=== PATIENT | male | born 1960 | race Caucasian/White ===

== ENCOUNTER → 2019-05-02 12:44 | Outpatient (CLI) | payer OTHER, SELFPAY ==
--- NOTE | 2019-05-03 08:06 | PFT ---
INTRODUCTION: The patient is a 58-year-old male that presents for pulmonary function studies secondary to a diagnosis of asthma. Respiratory therapy reports good patient effort. Bronchodilators were used during testing. INTERPRETATION: Forced expiration spirometry demonstrates the presence of a very severe large airways obstructive ventilatory defect with an FEV1 of 33% predicted. There was a significant response to aerosolized bronchodilators noted, based upon change in FEV1. Spirograms are of good quality and do not plateau indicating slow emptying of the lungs. Body plethysmography was performed and reveals an elevated TLC and RV, indicative of underlying hyperinflation and air trapping. Diffusing capacity by single breath CO is mildly reduced at 69% of predicted. IMPRESSION: Partially reversible very severe large airways obstructive ventilatory defect with associated hyperinflation, air trapping and mild reduction in diffusing capacity.
== END ==
PROVIDERS: Family Provider Family Medicine; PCP Family Medicine; Referring Provider Family Medicine; Visit Provider Family Medicine
DX: J45.909 Unspecified asthma, uncomplicated (principal); F17.200 Nicotine dependence, unspecified, uncomplicated
CPT/HCPCS: 94060; 94726; 94729

== ENCOUNTER → 2019-08-03 08:35 | Outpatient (CLI) | payer OTHER, SELFPAY ==
[2019-07-12 08:04] VITALS: BMI 30.3
[2019-08-03 12:27] LABS: Absolute Lymphocyte Count 2.02 X10^3/uL (0.83-4.51); Absolute Neutrophil Count 5.9 X10^3/uL (2.0-7.7); Basophil# 0.05 X10^3/uL; Basophil% 0.6 % (0-1); Eosinophil# 0.29 X10^3/uL; Eosinophils% 3.3 % (0-5); Hemoglobin 15.8 g/dL (13.0-16.5); Lymphocyte # 2.02 X10^3/ul (4.0); Lymphocyte % 22.7 % (19-41); Mean Corp Hgb Conc 31.6 g/dL (32-36); Mean Corpuscular Hgb 28.2 pg (27.0-32.0); Mean Corpuscular Volume 89.1 fL (80-94); Mean Platelet Vol. 11.9 fl (6.2-12.0); Monocyte# 0.63 X10^3/uL; Monocyte% 7.1 % (0-10); NRBC Flagged by Analyzer 0 % (0-5); Neutrophil # 5.89 X10^3/uL (2.7-7.7); Platelet Count 282 K/mm3 (150-450); RBC Distribution Width CV 13.2 % (11.6-14.6); RBC Distribution Width SD 43.4 fl (35.1-43.9); Red Blood Count 5.61 M/mm3 (4.6-6.2); White Blood Count 8.9 K/mm3 (4.4-11.0)
[2019-08-03 12:48] LABS: ALB/GLOB Ratio 0.9 RATIO (0.9-2.4); AST(SGOT) 15 U/L (15-37); Alanine Aminotransfer ALT/SGPT 42 U/L (16-61); Albumin, Serum 3.3 g/dL (3.2-5.0); Alkaline Phosphatase 114 U/L (45-117); Anion Gap 6 (5-15); BUN 14 mg/dL (7-18); BUN/Creat Ratio 13.2 RATIO (10-20); Calcium,Total 8.9 mg/dL (8.5-10.1); Chloride 106 mmol/L (98-107); Creatinine, Serum 1.06 mg/dL (0.70-1.30); EST Glomerular Filtration Rate 76 mL/min (>60); Est Glom Filt Rate - Afr Amer 92 mL/min (>60); Globulin 3.7 g/dL (2.2-4.2); Glucose 103 mg/dL (74-106); Potassium 4.6 mmol/L (3.5-5.1); Sodium Level 139 mmol/L (136-145); Thyroid Stim Hormone (TSH) 1.78 uIU/mL (0.358-3.74)
== END ==
PROVIDERS: PCP Family Medicine; Visit Provider Family Medicine
DX: I10 Essential (primary) hypertension (principal); E78.5 Hyperlipidemia, unspecified
CPT/HCPCS: 36415; 80053; 84443; 85025

== ENCOUNTER → 2019-08-23 12:17 | Outpatient (CLI) | payer OTHER, SELFPAY ==
[2019-07-12 08:04] VITALS: BMI 30.3
[2019-08-23 12:30] VITALS: PULSE 100; PULSE 77; PULSE 83; PULSE 91; PULSE 96; PULSE 99; O2SAT 92; O2SAT 93; O2SAT 95
--- NOTE | 2019-08-24 13:50 | PCM.PSN.6M ---
PSN 6 Minute Walk Test - 6 Minute Walk Test 6 Minute Walk Test: 6 Minute Walk Test PSN:6-Minute Walk Test Start: 08/23/19 12:46 Freq: Status: Active Protocol: [id number].6MINW Document 08/23/19 12:30 JLA (Rec: 08/23/19 12:48 JLA [id number]) 6 Minute Walk Test Date Performed 08/23/19 Time Performed 12:30 Height 6 ft 1 in Weight: 230 lb Weight in Pounds 230.[address]: Piter Mccallum Assistive device used: None Pre-test Oxygen Delivery Method Room Air Pulse Ox (%) 95 Pulse Rate (60-100 beats/min) 77 Dyspnea Rogers Scale (0-10) 0 Exertion Rogers Scale (6-20) 6 1st minute Oxygen Delivery Method Room Air Pulse Ox (%) 93 Pulse Rate (60-100 beats/min) 91 2nd minute Oxygen Delivery Method Room Air Pulse Ox (%) 92 Pulse Rate (60-100 beats/min) 100 3rd minute Oxygen Delivery Method Room Air Pulse Ox (%) 92 Pulse Rate (60-100 beats/min) 96 4th minute Oxygen Delivery Method Room Air Pulse Ox (%) 92 Pulse Rate (60-100 beats/min) 99 5th minute Oxygen Delivery Method Room Air Pulse Ox (%) 93 Pulse Rate (60-100 beats/min) 99 6th minute Oxygen Delivery Method Room Air Pulse Ox (%) 93 Pulse Rate (60-100 beats/min) 83 Dyspnea Rogers Scale (0-10) 0 Exertion Rogers Scale (6-20) 11 Post-test Oxygen Delivery Method Room Air Pulse Ox (%) 95 Pulse Rate (60-100 beats/min) 77 Full Laps Walked 24 Partial Lap, Number of Tiles Walked 20 Total Distance Walked (ft) 1436 - Interpretation Interpretation: The patient ambulated 1436 feet over the course of 6 minutes beginning on room air without assistive devices or breaks. Pretesting oxygen saturation was noted to be 95% on room air. With ambulation, the linda oxygen saturation was 92%. There was no significant exertional oxygen desaturation. - Recommendations Recommendations: There is no indication for the use of supplemental oxygen at this time.
== END ==
PROVIDERS: Family Provider Family Medicine; PCP Family Medicine; Referring Provider Internal Medicine Critical Care Medicine; Visit Provider Internal Medicine Critical Care Medicine
DX: J44.9 Chronic obstructive pulmonary disease, unspecified (principal)
CPT/HCPCS: 94618

== ENCOUNTER → 2020-04-26 12:45 | Outpatient (CLI) | payer OTHER, SELFPAY ==
[2019-11-01 07:38] VITALS: BMI 30.3
--- NOTE | 2020-04-26 15:38 | PFTCOMP ---
COMPLETE PULMONARY FUNCTION TEST INTERPRETATION Brief HPI: Patient is a 59 year old male, currently under the care of myself, who presents to [facility] for complete pulmonary function tests secondary to diagnosis of COPD. Respiratory therapist reports good effort and reproducible results. Interpretation: Forced expiration spirometry shows a very severe large airways obstructive ventilatory defect with an FEV1 of 35% predicted. There is no significant bronchodilator response by strict ATS criteria. Spirograms are of good quality and plateau slowly, indicating slowly emptying areas of the lungs. The respiratory flow volume loop shows decreased expiratory flow rates at all lung volumes consistent with airway obstruction. Lung volumes by body plethysmography show a decreased total lung capacity at 5.16 L, 70% predicted. All other lung volumes are reduced symmetrically. Diffusion capacity by carbon monoxide is normal at 78% predicted. The airway resistance is elevated. Compared to previous pulmonary function tests from 05/02/2019, there is been a significant reduction in lung volume by 38%. Impression: Irreversible very severe mixed ventilatory defect with preserved diffusion capacity. There has been improvement in air trapping compared to previous study.
== END ==
PROVIDERS: PCP Family Medicine; Referring Provider Internal Medicine Critical Care Medicine; Visit Provider Internal Medicine Critical Care Medicine
DX: J44.9 Chronic obstructive pulmonary disease, unspecified (principal)
CPT/HCPCS: 94060; 94726; 94729

== ENCOUNTER → 2020-08-06 09:25 | Outpatient (CLI) | payer OTHER, SELFPAY ==
[2020-05-01 08:13] VITALS: BMI 30.4
[2020-08-06 12:47] LABS: Absolute Lymphocyte Count 2.02 X10^3/uL (0.83-4.51); Absolute Neutrophil Count 5.4 X10^3/uL (2.0-7.7); Basophil# 0.04 X10^3/uL; Basophil% 0.5 % (0-1); Eosinophils% 2.4 % (0-5); Hematocrit 49.1 % (40-54); Hemoglobin 16.2 g/dL (13.0-16.5); Lymphocyte # 2.02 X10^3/ul (4.0); Lymphocyte % 24.6 % (19-41); Mean Corpuscular Hgb 28.9 pg (27.0-32.0); Mean Corpuscular Volume 87.7 fL (80-94); Mean Platelet Vol. 12.2 fl (6.2-12.0); Monocyte# 0.54 X10^3/uL; Monocyte% 6.6 % (0-10); NRBC Flagged by Analyzer 0 % (0-5); Neutrophil # 5.37 X10^3/uL (2.7-7.7); Neutrophil % 65.4 % (47-70); Platelet Count 217 K/mm3 (150-450); RBC Distribution Width CV 12.9 % (11.6-14.6); RBC Distribution Width SD 41.4 fl (35.1-43.9); White Blood Count 8.2 K/mm3 (4.4-11.0)
[2020-08-06 13:30] LABS: ALB/GLOB Ratio 0.9 RATIO (0.9-2.4); AST(SGOT) 15 U/L (15-37); Alanine Aminotransfer ALT/SGPT 33 U/L (16-61); Albumin, Serum 3.3 g/dL (3.2-5.0); Alkaline Phosphatase 119 U/L (45-117); Anion Gap 11 (5-15); BUN 14 mg/dL (7-18); BUN/Creat Ratio 15.6 RATIO (10-20); Calcium,Total 8.6 mg/dL (8.5-10.1); Chloride 108 mmol/L (98-107); Cholesterol 150 mg/dL (200); EST Glomerular Filtration Rate 92 mL/min (>60); Est Glom Filt Rate - Afr Amer 112 mL/min (>60); Globulin 3.7 g/dL (2.2-4.2); Glucose 83 mg/dL (74-106); High Density Lipoprotein 36 mg/dL; PSA,Total - Annual Screen 0.77 ng/mL (0.00-4.00); Potassium 3.9 mmol/L (3.5-5.1); Sodium Level 142 mmol/L (136-145); Thyroid Stim Hormone (TSH) 1.89 uIU/mL (0.358-3.74); Triglycerides 101 mg/dL; Very Low Density Lipoprotein 20 mg/dL (5-40)
== END ==
PROVIDERS: PCP Family Medicine; Visit Provider Family Medicine
DX: R73.01 Impaired fasting glucose (principal); E78.5 Hyperlipidemia, unspecified; I10 Essential (primary) hypertension; Z12.5 Encounter for screening for malignant neoplasm of prostate
CPT/HCPCS: 36415; 80053; 80061; 84153; 84443; 85025; G0103

== ENCOUNTER 2022-04-19 11:04 | Inpatient (IN) | payer OTHER, SELFPAY ==
[2022-04-19] VITALS (33 sets, daily range): BP systolic 82–212; BP diastolic 55–110; PULSE 69–147; RESP 12–44; TEMP 36.6–38.4; O2SAT 90–99; BMI 29.9; BMI 28.6
[2022-04-19] MEDS: Ipratropium/Albuterol Sulfate 3 ML AMPUL.NEB INHALATION ×4 (11:23→23:26)
--- NOTE | 2022-04-19 11:23 | RAD_ITS ---
STUDY: X-RAY CHEST REASON FOR EXAM: Male, 61 years old. Respiratory failure TECHNIQUE: Single AP portable view of the chest. COMPARISON: Prior comparison studies are not available for review at this time. FINDINGS: Endotracheal tube with its tip approximately 4.5 cm proximal to the monica. Nasogastric tube extends below the level of the diaphragm. Mild hypoventilatory and atelectatic changes in the left lung base. No focal infiltrate otherwise is seen. The costophrenic angles are not entirely included on this exam. Normal size heart. Normal mediastinum and homer. Normal visualized pulmonary arteries. Normal visualized aortic arch and descending thoracic aorta. No demonstrated acute osseous changes. There is no demonstrated abnormality of the visualized soft tissue structures of the upper abdomen. RAD/Chest 1 View (Portable) IMPRESSION: Mild atelectatic changes in the left lung base. Electronically Signed: Tom Lei MD at 12:27 EDT ,
--- NOTE | 2022-04-19 11:23 | EKG12_ITS ---
Test Reason : SHORT OF BREATH Blood Pressure : / mmHG Vent. Rate : 144 BPM Atrial Rate : 144 BPM P-R Int : 120 ms QRS Dur : 088 ms QT Int : 362 ms P-R-T Axes : 058 047 081 degrees QTc Int : 560 ms Sinus tachycardia Inferior-posterior infarct , age undetermined Abnormal ECG Confirmed by FELICE CALDERON, CHRIS ([id number]), editorial intern NIDIA MARTÍNEZ ([id number]) on 04/22/2022 1:44:45 PM Referred By: CARLA Confirmed By:CHRIS VIVEROS MD
[2022-04-19 11:36] LABS: Absolute Lymphocyte Count 0.81 X10^3/uL (0.83-4.51); Absolute Neutrophil Count 14.9 X10^3/uL (2.0-7.7); Basophil# 0.05 X10^3/uL; Basophil% 0.3 % (0-1); Eosinophil# 0.23 X10^3/uL; Eosinophils% 1.4 % (0-5); Hematocrit 52.9 % (40-54); Hemoglobin 17.1 g/dL (13.0-16.5); Lymphocyte # 0.81 X10^3/ul (0.83-4.51); Lymphocyte % 4.8 % (19-41); Mean Corp Hgb Conc 32.3 g/dL (32-36); Mean Corpuscular Hgb 29.9 pg (27.0-32.0); Mean Corpuscular Volume 92.5 fL (80-94); Mean Platelet Vol. 11.2 fl (6.2-12.0); Monocyte# 0.87 X10^3/uL; Monocyte% 5.1 % (0-10); NRBC Flagged by Analyzer 0 % (0-5); Neutrophil # 14.88 X10^3/uL (2.7-7.7); Neutrophil % 87.8 % (47-70); Platelet Count 248 K/mm3 (150-450); RBC Distribution Width CV 13.4 % (11.6-14.6); RBC Distribution Width SD 45.6 fl (35.1-43.9); Red Blood Count 5.72 M/mm3 (4.6-6.2); White Blood Count 16.9 K/mm3 (4.4-11.0)
[2022-04-19] MEDS: Etomidate 20 MG/10 ML Vial IV (11:39)
[2022-04-19] MEDS: Rocuronium Bromide 50 MG/5 ML Vial 100 MG IV (11:39)
--- NOTE | 2022-04-19 11:42 | RAD_ITS ---
STUDY: X-RAY - ABDOMEN/PELVIS REASON FOR EXAM: Male, 61 years old. NG Insertion TECHNIQUE: Single AP view of the abdomen / pelvis. COMPARISON: None. FINDINGS: Nasogastric tube is submitted the region of the gastric fundus. The sidehole is just distal to the gastroesophageal junction. The abdomen otherwise is not entirely included on this exam RAD/Abdomen Single View (Portable) IMPRESSION: Nasogastric tube with the tip in the region of the gastric fundus. Electronically Signed: Tom Lei MD at 12:35 EDT ,
[2022-04-19 11:45] LABS: International Normalized Ratio 1.3; Prothrombin Time (Protime)PT. 15.7 SECONDS (11.7-14.9)
[2022-04-19] MEDS: Propofol 10MG/Ml 1,000 MG/100 ML Bottle 6.2 MG CONT INF ×2 (11:45)
[2022-04-19] MEDS: 0.9% Normal Saline 1,000 ML 150 ML IV (11:45)
[2022-04-19 11:46] LABS: Partial Thromboplast Time 28.7 Seconds (24.1-36.2)
--- NOTE | 2022-04-19 11:59 | ED.VIS.DYS ---
HPI History of Present Illness Chief Complaint: Shortness of Breath Detail of Chief Complaint: Shortness of breath and not feeling well Informant: patient and spouse/S.O. Onset/Context/Timing Onset: Days (Left work early on according to .) Context: gradual Timing: Continuous Quality: Positive for Dyspnea on exertion and Wheezing Current Severity: Severe Maximum Severity: Severe Worsened by: Exertion and Coughing Relieved by: Nothing Associated Symptoms cough Narrative Narrative: Patient is a 61-year-old male with history of asthma, hypertension, obesity and hyperlipidemia who presents with shortness of breath. is the primary informant. He left work early on because he did not feel well. states he got worse. Today he did not look well. When he arrived his pulse ox was in the 70s. He is mottled diaphoretic and ashen in appearance. He has evidence of central cyanosis. He is able to say 1 word at best. He has history of COPD stage III by Gold classification. He was seen by pulmonology. He has not seen pulmonology in some time. He does not have an inhaler presently and has not been on steroids recently. PE Risk Factors: Negative for Cancer, OCP + Smoking + > 35, Prior DVT or PE, Recent immobilization, Recent surgery or Recent travel Prior similar symptoms: No Recent Illness/Hospitalization: No PFSH [facility] Medical History (Updated 04/19/22 @ 12:[address] Daniel Raymundo MD) Asthma H/O gynecomastia HTN (hypertension) Hyperlipidemia Obesity Seasonal allergies Home Medications albuterol sulfate 90 mcg/actuation aerosol inhaler (ProAir HFA) 1 puff inhalation Q6H PRN Shortness Of Breath 07/11/19 [History Last Taken Unknown] atorvastatin 10 mg tablet 10 mg PO DAILY 07/11/19 [History Last Taken Unknown] lisinopril 20 mg tablet 20 mg PO DAILY 07/11/19 [History Last Taken Unknown] fluticasone fur. 100 mcg-umeclid 62.5 mcg-vilant 25 mcg inhalat.powder (Trelegy Ellipta) 1 inh inhalation DAILY #60 ea 05/01/20 [Rx Last Taken Unknown] montelukast 10 mg tablet 10 mg PO QPM #90 tabs 05/01/20 [Rx Last Taken Unknown] Allergy/AdvReac Type Severity Reaction Status Date / Time No Known Allergies Allergy Verified 04/19/22 11:17 Surgical History History of appendectomy Social History (Updated 04/19/22 @ 12:[address] Daniel Raymundo MD) household members: spouse substance use type: does not use ROS ROS ED Review of Systems ROS Unobtainable: due to mental status and other Details: Respiratory distress. Respiratory/Chest Respiratory/Chest: Reports cough, dyspnea and dyspnea on exertion EXAM Physical Exam Const Vital Signs: 04/19/22 11:07 04/19/22 11:12 04/19/22 11:34 Temperature 97.8 F 97.8 F Temperature Source Temporal Temporal Pulse Rate 144 H 144 H 147 H Respiratory Rate 38 H 38 H 44 H Respiratory Effort Respiratory Depth Respiratory Pattern Blood Pressure 195/86 H 195/86 H 167/104 H Blood Pressure Mean 122 122 125 Pulse Ox 93 96 93 Oxygen Delivery Method Non-Rebreather Bi-pap Bi-pap Oxygen Flow Rate (L/min) 15 Fraction of Inspired Oxygen (FIO2) 04/19/22 11:30 04/19/22 11:39 Temperature Temperature Source Pulse Rate 118 H Respiratory Rate 14 Respiratory Effort Short of Breath Labored Accessory Muscle Use Nasal Flaring Retracting Respiratory Depth Shallow Respiratory Pattern Tachypnea Normal Blood Pressure Blood Pressure Mean Pulse Ox 98 Oxygen Delivery Method Oxygen Flow Rate (L/min) Fraction of Inspired Oxygen (FIO2) 65 Positive well nourished, well developed and obese Constitutional Narrative: Patient is mottled, cyanotic, ashen in appearance and diaphoretic. General Appearance ED: well developed; Negative for NAD Nutritional Appearance: obese HEENT Reports moist mucous membranes HEENT Narrative: Ears normal. Nares patent. Uvula midline. No erythema or exudate the posterior pharynx. atraumatic Eyes PERRL and EOMs intact bilaterally General Eye ED: Negative for pale conjunctiva or scleral icterus Neck no lymphadenopathy, supple and no meningeal signs Neck Narrative: Trachea is midline. There is no inspiratory expiratory stridor. Resp No normal respiratory effort and No clear to auscultation bilaterally Auscultation: wheezes expiratory wheezes and throughout and diminished lung sounds bilateral throughout Cardio regular rhythm, S1 normal heart sound and S2 normal heart sound Rate: tachycardic GI non-tender, non-distended and no masses Auscultation: hypoactive bowel sounds Palpation: soft Narrative: Normal external genitalia Back/Spine normal to inspection Extremity General Extremety ED: Yes edema; Negative for tenderness General Extremity: edema Neuro Neuro Narrative: Unable to determine since patient is unable to speak even one-word answers. Elizabeth Coma Scale: document GCS findings Spontaneous Obeys Commands Oriented 15 Motor Exam: strength 5/5 throughout Psych Psych Narrative: Suspect patient's agitation is due to hypoxia. Attitude: agitated Skin Skin Narrative: Diaphoretic, mottled with ashen appearance and central cyanosis. Sepsis Attestation Sepsis Alert: Yes Sepsis Attestation: Agree w/Sepsis Possible Source of Sepsis: Pulmonary MDM MDM MDM Narrative Medical decision making narrative: Patient arrived hypoxic. He was placed on nonrebreather. Nurse asked that I see him immediately. He was placed on BiPAP. Unable to give more than 1 word answers. is the primary informant. Patient deteriorated requiring orotracheal ovation. Patient received 20 mg of etomidate followed by 100 mg rocuronium. He is placed on a fentanyl and propofol drip. When patient was intubated thick green secretions noted from the trachea. Suspect patient has pneumonia. He was treated with Rocephin and Zithromax and for community-acquired pneumonia. Lab Data Attestation: I reviewed the patient's lab results. Lab results narrative: ABG reveals a respiratory acidosis and significant AA gradient. Labs: Laboratory Results - last 24 hr 04/19/22 04/19/22 04/19/22 11:25 11:25 11:25 WBC 16.9 H RBC 5.72 Hgb 17.1 H Hct 52.9 MCV 92.5 MCH 29.9 MCHC 32.3 RDW Std Deviation 45.6 H RDW Coeff of Teressa 13.4 Plt Count 248 MPV 11.2 Immature Gran % (Auto) 0.600 Neut % (Auto) 87.8 H Lymph % (Auto) 4.8 L Richardson % (Auto) 5.1 Eos % (Auto) 1.4 Baso % (Auto) 0.3 Absolute Neuts (auto) 14.9 H Absolute Lymphs (auto) 0.81 L Nucleated RBC % 0 PT 15.7 H INR 1.3 APTT 28.7 Sodium 137 Potassium 4.4 Chloride 99 Carbon Dioxide 26.0 Anion Gap 12 BUN 24 H Creatinine 1.70 H Estim Creat Clear Calc 52.22 Est GFR (MDRD) Af Amer 53 L Est GFR (MDRD) Non-Af 44 L BUN/Creatinine Ratio 14.1 Glucose 210 H Lactic Acid Calcium 9.4 Total Bilirubin 0.90 AST 132 H ALT 104 H Alkaline Phosphatase 135 H Troponin I High Sens 6254 H* Total Protein 8.4 H Albumin 3.3 Globulin 5.1 H Albumin/Globulin Ratio 0.6 L Urine Color Urine Clarity Urine pH Ur Specific Oden Urine Protein Urine Glucose (UA) Urine Ketones Urine Occult Blood Urine Nitrite Urine Bilirubin Urine Urobilinogen Ur Leukocyte Esterase 04/19/22 04/19/22 11:25 12:00 WBC RBC Hgb Hct MCV MCH MCHC RDW Std Deviation RDW Coeff of Teressa Plt Count MPV Immature Gran % (Auto) Neut % (Auto) Lymph % (Auto) Richardson % (Auto) Eos % (Auto) Baso % (Auto) Absolute Neuts (auto) Absolute Lymphs (auto) Nucleated RBC % PT INR APTT Sodium Potassium Chloride Carbon Dioxide Anion Gap BUN Creatinine Estim Creat Clear Calc Est GFR (MDRD) Af Amer Est GFR (MDRD) Non-Af BUN/Creatinine Ratio Glucose Lactic Acid 3.6 H* Calcium Total Bilirubin AST ALT Alkaline Phosphatase Troponin I High Sens Total Protein Albumin Globulin Albumin/Globulin Ratio Urine Color Yellow Urine Clarity Sl. Cloudy Urine pH 5.0 Ur Specific Oden 1.025 Urine Protein 500 H Urine Glucose (UA) Normal Urine Ketones 5 H Urine Occult Blood 150 H Urine Nitrite Negative Urine Bilirubin Negative Urine Urobilinogen 4 H Ur Leukocyte Esterase Negative ABG Data ABG results: ABG 04/19/22 12:27 Specimen Type ART Sample Site R Brach pH 7.20 L Bicarbonate Actual 26.2 H Total CO2 28 Base Excess -2 O2 Saturation 97 O2 % 65 ABG pCO2 66.5 H ABG pO2 116 H Respiration Rate 14 Vent Mode AC Tidal Volume 450 POC PEEP 5 Crit Call To/Read Back Yes Blood Gas Notified Whom raymundo Radiography Chest X-Ray - ED: 1 View and Read by ED Physician (1 view of the chest and 1 view of the abdomen were obtained. Endotracheal tube is in proper position. There is increased interstitial markings on the left. Cardiac silhouette and size unremarkable. Perihilar regions unremarkable. Orogastric tube is in proper position. This was independently re) Diagnostic Testing: Clinical Impression(s) from Imaging Studies Chest X-Ray 04/19/22 11:23 IMPRESSION: Mild atelectatic changes in the left lung base. Electronically Signed: Tom Lei MD at 12:27 EDT , KUB X-Ray 04/19/22 11:42 IMPRESSION: Nasogastric tube with the tip in the region of the gastric fundus. Electronically Signed: Tom Lei MD at 12:35 EDT , EKG Initial EKG: Attestation: I personally reviewed and interpreted this EKG as follows: Interpretation: Sinus Tachycardia (Rate is 144. There is motion artifact. There may be lateral subendocardial ischemia. SD interval is 120 ms. QS duration 88 ms. QT duration 162 ms. Barron is normal. The ischemia may be due to hypoxia.) Comments: The subendocardial ischemia may be due to hypoxia. Follow-up EKG: Attestation: I personally reviewed and interpreted this EKG as follows: Interpretation: Sinus Tachycardia (Rate is 141. There is a short SD interval 96 ms. QS duration 90 ms. QT duration [address] abnormality in the anterior lateral leads. There is no ST elevation WI.) Treatment and Re-Evaluation Narrative: Patient was treated for sepsis. I was informed that his troponin is greater than 6000. Suspect patient has non-STEMI ST elevation WI. Will obtain repeat EKG since he is now chemically paralyzed. The owner spa director and hospitalist were paged. Will discuss case with hospitalist regarding me specifically speaking with the qc tech. Procedures Other Procedures Procedure(s): 1. Patient was orotracheal intubated by RSI technique. Patient received 100 mg rocuronium that was preceded by 20 mg etomidate. He did not become hypoxic. Using glide scope 7.5 Azeri endotracheal was placed without difficulty on first pass. There is appropriate color change. Breath sounds are noted bilaterally. OG was placed per nursing staff. Christie was placed per nursing staff. Critical Care Time Critical Care Time: Yes Critical care time (excluding procedures): 30-74 minutes (37), Including time spent: (History, physical, documentation, interpretation laboratory results), Discussing w/Patient &/or Family/Switch Tender ( was the primary informant.), Discussing w/Consultants (Cardiology Dr. Bajwa. Agrees with anticoagulation with heparin. Will discuss case with hospitalist), Arranging Admission or Transfer and Performing Direct Patient Care at Bedside Discharge Plan Dx/Rx/DC Orders Clinical Impression: Hyperlipidemia, HTN (hypertension), COPD with asthma, Sepsis with acute organ dysfunction without septic shock, Community acquired pneumonia, Non-ST elevated myocardial infarction, JOHNNY (acute kidney injury), Acute respiratory failure with hypoxia and hypercapnia Disposition Disposition: Acute Care [facility]
[2022-04-19 12:08] LABS: ALB/GLOB Ratio 0.6 RATIO (0.9-2.4); AST(SGOT) 132 U/L (15-37); Alanine Aminotransfer ALT/SGPT 104 U/L (16-61); Albumin, Serum 3.3 g/dL (3.2-5.0); Alkaline Phosphatase 135 U/L (45-117); Anion Gap 12 (5-15); BUN 24 mg/dL (7-18); BUN/Creat Ratio 14.1 RATIO (10-20); Calcium,Total 9.4 mg/dL (8.5-10.1); Chloride 99 mmol/L (98-107); EST Glomerular Filtration Rate 44 mL/min (>60); Est Glom Filt Rate - Afr Amer 53 mL/min (>60); Estimated Creatinine Clearance 52.22 ml/min; Globulin 5.1 g/dL (2.2-4.2); Glucose 210 mg/dL (74-106); Potassium 4.4 mmol/L (3.5-5.1); Protein, Total 8.4 g/dL (6.4-8.2); Sodium Level 137 mmol/L (136-145); Troponin-I HS 6254 pg/mL (3.0-78.0)
[2022-04-19 12:09] LABS: Lactic Acid 3.6 mmol/L (0.4-1.9)
[2022-04-19 12:21] LABS: Bacteria 0 SEEN /hpf (None Seen); Mucous, Urine 0 SEEN /hpf (<or=2+); Red Blood Cells-Urine 0 SEEN /hpf (0-5); Squamous Epithelial Cells - UA 0 SEEN /hpf (0-5); White Blood Cells 0 SEEN /hpf (0-5)
[2022-04-19] MEDS: MethylPREDNISolone 125 MG/2 ML Vial IV (12:21)
[2022-04-19 12:32] LABS: Color, Urine Yellow (Yellow); Glucose, Dipstick Normal (Normal); Ketone-Dipstick 5 mg/dl (Negative); Leukocyte Esterase-Dipstick Negative /ul (Negative); Nitrite-Dipstick Negative (Negative); Occult Blood-Urine 150 /ul (Negative); Protein-Dipstick 500 mg/dl (Negative); Specific Gravity, Urine 1.025 (1.002-1.030); Urine Bilirubin Dipstick Negative (Negative); Urine Clarity Sl. Cloudy (Clear); Urine Urobilinogen 4 mg/dl (Normal)
--- NOTE | 2022-04-19 12:33 | HP.PCM.HOS_ITS ---
HPI - General General Date of Admission: 04/19/22 Date of Service: 04/19/22 Chief Complaint: Worsening shortness of breath and hypoxia. History of COPD HPI Narrative To SANDOVAL WANG, is a 61 M With history of COPD came to ED with shortness of breath/dyspnea started on Thursday, progressively got worse last few days. When I saw the patient is already intubated and sedated therefore history taken from the . He went to work on and left work early as he was not feeling good. He he did not go to work on Thursday feeling short of breath. Today his called EMS as he was very short of breath, and respiratory distre ss. As per EMS note, patient was tachycardic, heart rate in 150s, cyanotic, pulse ox 74% on RA, end-tidal 52, RR 34 and BP 155/121. Patient was put on nonrebreather. In ED,Pulse ox in 70s, skin color mottled, central cyanotic, diaphoretic and was able to say 1 word therefore emergently intubated by ED physician. During intubation, thick yellow purulent material was found. also noticed thick purulent material in a cup at home As per he smokes a pack per day, more than 45 pack years of smoking. Patient has a stage III COPD by PFT criteria, follows Dr. Mccallum, last seen in April 2020 and had canceled pulmonary visit in October 2020 Patient has Christie catheter in place, total amount 30-40 mill dark-colored urine. Patient also has high troponin and EKG shows sinus tachycardia 141 bpm, short AR, QTC 566 ms, deep Q waves in inferior leads and the R wave in lead V1 and V2 suggestive of possible posterior inferior infarct, age undetermined. No previous EKG to review. Patient empirically on IV heparin drip after discussion with geophysical prospecting permit agent by ER physician. As per he did not complain of chest pain pressure. No prior history of heart disease. History of hypertension Patient is being admitted in ICU for further management [facility] Medical History Asthma H/O gynecomastia HTN (hypertension) Hyperlipidemia Obesity Seasonal allergies Home Medications albuterol sulfate 90 mcg/actuation aerosol inhaler (ProAir HFA) 1 puff inhalation Q6H PRN Shortness Of Breath 12/30/19 [History Last Taken Unknown] atorvastatin 10 mg tablet 10 mg PO DAILY 07/11/19 [History Last Taken Unknown] lisinopril 20 mg tablet 20 mg PO DAILY 07/11/19 [History Last Taken Unknown] fluticasone fur. 100 mcg-umeclid 62.5 mcg-vilant 25 mcg inhalat.powder (Trelegy Ellipta) 1 inh inhalation DAILY #60 ea 05/01/20 [Rx Last Taken Unknown] montelukast 10 mg tablet 10 mg PO QPM #90 tabs 05/01/20 [Rx Last Taken Unknown] Allergy/AdvReac Type Severity Reaction Status Date / Time No Known Allergies Allergy Verified 04/19/22 11:17 Surgical History History of appendectomy Social History household members: spouse Smoking Status: Current every day smoker tobacco type: cigarettes substance use type: does not use ROS ROS Narrative 14 ROS unobtainable as patient is intubated and sedated Review of Systems ROS Unobtainable: due to endotracheal tube Vital Signs Vital Signs Vital Signs: 04/19/22 11:07 04/19/22 11:12 04/19/22 11:34 Temperature 97.8 F 97.8 F Temperature Source Temporal Temporal Pulse Rate 144 H 144 H 147 H Respiratory Rate 38 H 38 H 44 H Respiratory Effort Respiratory Depth Respiratory Pattern Blood Pressure 195/86 H 195/86 H 167/104 H Blood Pressure Mean 122 122 125 Pulse Ox 93 96 93 Oxygen Delivery Method Non-Rebreather Bi-pap Bi-pap Oxygen Flow Rate (L/min) 15 Fraction of Inspired Oxygen (FIO2) 04/19/22 11:30 04/19/22 11:39 Temperature Temperature Source Pulse Rate 118 H Respiratory Rate 14 Respiratory Effort Short of Breath Labored Accessory Muscle Use Nasal Flaring Retracting Respiratory Depth Shallow Respiratory Pattern Tachypnea Normal Blood Pressure Blood Pressure Mean Pulse Ox 98 Oxygen Delivery Method Oxygen Flow Rate (L/min) Fraction of Inspired Oxygen (FIO2) 65 Weight Weight: 227 lb 1.218 oz Body Mass Index (BMI) 29.9 Physical Exam Narrative General: Sedated on propofol and fentanyl. HEENT: Atraumatic, PERRLA, EOMI, Normocephalic Oral: ET and OG tube. Neck: Supple, No JVD, Negative Carotid Bruits Lungs: On ventilator, assist control mode. Air entry bilateral equal. Cardiovascular: Sinus tachycardia, Normal S1, Normal S2, No murmurs Abdomen: Bowel Sounds sluggish, Soft, Non Tender, Non-Distended : Christie catheter, darker urine. No renal angle tenderness. No suprapubic tenderness. Extremities: No edema, Capillary Refill Less than 3 Seconds Skin: Mottled bluish discoloration of feet and toes Musculoskeletal: No Tenderness to Palpation of Joints or Extremities Neurological: Sedated, complete neuro exam unobtainable. No facial droop or obvious cranial nerve palsy Psych/Mental Status: Sedated Results Lab / Micro Data Result Diagrams: 04/19/22 11:25 04/19/22 11:25 Labs: Laboratory Results - last 24 hr 04/19/22 11:25: WBC 16.9 H, RBC 5.72, Hgb 17.1 H, Hct 52.9, MCV 92.5, MCH 29.9, MCHC 32.3, RDW Std Deviation 45.6 H, RDW Coeff of Teressa 13.4, Plt Count 248, MPV 11.2, Immature Gran % (Auto) 0.600, Neut % (Auto) 87.8 H, Lymph % (Auto) 4.8 L, [place] % (Auto) 5.1, Eos % (Auto) 1.4, Baso % (Auto) 0.3, Absolute Neuts (auto) 14.9 H, Absolute Lymphs (auto) 0.81 L, Nucleated RBC % 0 04/19/22 11:25: PT 15.7 H, INR 1.3, APTT 28.7 04/19/22 11:25: Sodium 137, Potassium 4.4, Chloride 99, Carbon Dioxide 26.0, Anion Gap 12, BUN 24 H, Creatinine 1.70 H, Estim Creat Clear Calc 52.22, Est GFR (MDRD) Af Amer 53 L, Est GFR (MDRD) Non-Af 44 L, BUN/Creatinine Ratio 14.1, Glucose 210 H, Calcium 9.4, Total Bilirubin 0.90, AST 132 H, ALT 104 H, Alkaline Phosphatase 135 H, Troponin I High Sens 6254 H*, Total Protein 8.4 H, Albumin 3.3, Globulin 5.1 H, Albumin/Globulin Ratio 0.6 L 04/19/22 11:25: Lactic Acid 3.6 H* Radiology Impression Chest X-Ray 04/19/22 11:23 IMPRESSION: Mild atelectatic changes in the left lung base. Electronically Signed: Tom Lei MD at 12:27 EDT , Assessment & Plan Assessment/Plan (1) Non-ST elevated myocardial infarction: (2) Community acquired pneumonia: (3) JOHNNY (acute kidney injury): (4) Acute respiratory failure with hypoxia and hypercapnia: (5) Sepsis with acute organ dysfunction without septic shock: PLAN: Plan This 61-year-old question gentleman admitted with acute combined respiratory fa ilure, features suggestive of sepsis and non-STEMI 1. Acute combined hypoxic and hypercarbic respiratory failure probably due to pneumonia and COPD exacerbation with history of stage III gold COPD: Patient is being admitted in ICU. Pulmonary office visit note reviewed. Last PFT in April 2020 shows a reversible very severe mixed ventilatory defect with preserved DLCO. Compared to previous study significant reduction in lung volume by 38%. FEV1 35% predicted. No significant bronchodilator response. Snowmaker is consulted. Patient is intubated. ABG reviewed. 7.20/66/116/5 on 65 % FiO2/450/5. ABG suggestive of acute respiratory acidosis as bicarb is normal at 26 on BMP. Discussed with nursing staff suggested tidal volume increased 500 mL to decrease PSAT and repeat blood gas after 1 hour. 2. Sepsis most likely due to pneumonia: The patient presented with sepsis most likely due to pneumonia with acute sepsis-related organ dysfunction as evidenced by acute combined respiratory failure, lactic acidosis and JOHNNY although creatinine is not more than 2.0. In ED, blood pressure was high 212/111, decreased due to propofol drip. Patient on broad-spectrum antibiotic IV Zosyn. MRSA nasal screen. Pneumonia work-up ordered. 3. Non-STEMI probably due to type II demand ischemia from sepsis: Troponins are high. EKG shows sinus tachycardia and Q waves in inferior leads. Cycle troponin. Patient empirically on IV heparin drip and aspirin. In[employer] consulted. 2D echo is ordered 4. JOHNNY probably prerenal or sepsis: Patient baseline creatinine runs around 1.0, last one 0.9 in July 2020. Admitted with BUN/creatinine 24/1.7. IV fluid normal saline. Patient has Christie catheter monitor intake and output. If kidney function does not improve, will need renal ultrasound and nephrology consult. 5. Stage III severe COPD with asthma and continued chronic smoking: Bronchodilator, IV Solu-Medrol and antibiotics as mentioned above. Patient not adherent into pulmonary clinic visit. 6. Hypertension: Currently blood pressure is in normal range. 7. Hyperglycemia: Glucose is 210. Accu-Chek before meals and at bedtime and cover with Humalog sliding scale. Patient does not have history of diabetes mellitus. A1c tomorrow AM. Glucose was 83 in July 2020 in [facility] VTE prophylaxis, high risk. On IV heparin drip. Living will/advanced directive/end of life care: Patient does not have living will or advanced directive. After discussion of benefits/risks procedures involved with full code, DNR CC arrest and DNR CC, said continue full code Patient's does want artificial life support including intubation, tube feed, ventilator and/chest compression, central venous catheter, vasopressor and DC shock if needed Total time spent in [id number] encounter in discussion of advanced directive 16 minutes. Clinical Impression(s) from Imaging Studies Chest X-Ray 04/19/22 11:23 IMPRESSION: Mild atelectatic changes in the left lung base. KUB X-Ray 04/19/22 11:42 IMPRESSION: Nasogastric tube with the tip in the region of the gastric fundus. Microbiology Past 72 Hours 04/19/22 12:00 Nasal Secretion SARS-CoV-2 Antigen (Rapid) - Final Laboratory Results 04/19/22 11:25: WBC 16.9 H, RBC 5.72, Hgb 17.1 H, Hct 52.9, MCV 92.5, MCH 29.9, MCHC 32.3, RDW Std Deviation 45.6 H, RDW Coeff of Teressa 13.4, Plt Count 248, MPV 11.2, Immature Gran % (Auto) 0.600, Neut % (Auto) 87.8 H, Lymph % (Auto) 4.8 L, [place] % (Auto) 5.1, Eos % (Auto) 1.4, Baso % (Auto) 0.3, Absolute Neuts (auto) 14.9 H, Absolute Lymphs (auto) 0.81 L, Nucleated RBC % 0 04/19/22 11:25: PT 15.7 H, INR 1.3, APTT 28.7 04/19/22 11:25: Sodium 137, Potassium 4.4, Chloride 99, Carbon Dioxide 26.0, Anion Gap 12, BUN 24 H, Creatinine 1.70 H, Estim Creat Clear Calc 52.22, Est GFR (MDRD) Af Amer 53 L, Est GFR (MDRD) Non-Af 44 L, BUN/Creatinine Ratio 14.1, Glucose 210 H, Calcium 9.4, Total Bilirubin 0.90, AST 132 H, ALT 104 H, Alkaline Phosphatase 135 H, Troponin I High Sens 6254 H*, Total Protein 8.4 H, Albumin 3.3, Globulin 5.1 H, Albumin/Globulin Ratio 0.6 L 04/19/22 11:25: Lactic Acid 3.6 H* 04/19/22 12:00: Urine Color Yellow, Urine Clarity Sl. Cloudy, Urine pH 5.0, Ur Specific [place] 1.025, Urine Protein 500 H, Urine Glucose (UA) Normal, Urine Ketones 5 H, Urine Occult Blood 150 H, Urine Nitrite Negative, Urine Bilirubin Negative, Urine Urobilinogen 4 H, Ur Leukocyte Esterase Negative, Urine RBC 0 SEEN, Urine WBC 0 SEEN, Ur Squamous Epith Cells 0 SEEN, Urine Bacteria 0 SEEN, Fine Granular Casts 0-5 SEEN, Urine Mucus 0 SEEN 04/19/22 12:27: Specimen Type ART, Sample Site R Brach, pH 7.20 L, Bicarbonate Actual 26.2 H, Total CO2 28, Base Excess -2, O2 Saturation 97, O2 % 65, ABG pCO2 66.5 H, ABG pO2 116 H, Respiration Rate 14, Vent Mode AC, Tidal Volume 450, POC PEEP 5, Crit Call To/Read Back Yes, Blood Gas Notified Whom raymundo Charges/Coding Visit Charges Inpatient E&M: 83274 Init Hosp L3 Procedures Hospitalists Procedures: 17702 Advncd Care Plan 30 Min
[2022-04-19 12:35] LABS: Base Excess -2 mmol/L (-2 to +2); Bicarbonate 26.2 mmol/L (22-26); Blood Gas Specimen Type ART; FI02 65; Mode AC; PEEP 5; PO2 116 mmHG (75-100); RR 14; SITE R Brach; SO2 97 % (95-99); Total Carbon Dioxide 28 mmol/L; Vt 450; pCO2 66.5 mmHg (35-45)
[2022-04-19] MEDS: Heparin Injection (Vial) 5,000 UNIT/ML VIAL 8000 UNIT IV (12:39)
[2022-04-19 12:50] LABS: Fine Granular Cast- Urine 0-5 SEEN /lpf (0-5)
--- NOTE | 2022-04-19 14:14 | ECHOCS_ITS ---
Reason For Study: NSTEMI Procedure This was a 2D Doppler, Color Flow transthoracic echocardiogram. The study was technically difficult. The study was technically limited. Due to COPD & body habitus. Exam performed portable in ICU/CCU. Left Ventricle Normal size and thickness. The left ventricular ejection fraction is 55 %. Unable to assess diastolic function based on available data. Severe posterior, inferior and inferior apical hypokinesis. Right Ventricle Normal right ventricle. Atria The left and right atria are normal. Mitral Valve Trivial mitral valve insufficiency. Tricuspid Valve Normal tricuspid valve. Aortic Valve Normal aortic valve. Pulmonic Valve The pulmonic valve is not well visualized. Great Vessels Normal sized aortic root. Pericardium/Pleural No pericardial effusion. Medication Diluted definity 5.0ml given slow IV push to enhance endocardial definition. MMode/2D Measurements & Calculations LVIDd: 4.5 cm IVSd: 1.4 cm Ao root diam: 3.8 cm LVIDs: 3.1 cm LVPWd: 1.3 cm LA dimension: 3.6 cm RVDd: 2.9 cm FS: 31.4 % LVAd ap4: 30.4 cm2 LVAd ap2: 19.9 cm2 SV(MOD-sp4): 49.1 ml LVLd ap4: 8.4 cm LVLd ap2: 7.1 cm EDV(MOD-sp4): 90.3 ml EDV(MOD-sp2): 47.1 ml EDV(sp4-el): 93.8 ml EDV(sp2-el): 47.7 ml LVAs ap4: 19.4 cm2 LVAs ap2: 13.1 cm2 LVLs ap4: 7.9 cm LVLs ap2: 6.4 cm ESV(MOD-sp4): 41.2 ml ESV(MOD-sp2): 22.8 ml ESV(sp4-el): 40.6 ml ESV(sp2-el): 22.9 ml EF(MOD-sp4): 54.4 % EF(MOD-sp2): 51.6 % EF(sp4-el): 56.7 % SV(MOD-sp2): 24.3 ml SV(sp4-el): 53.1 ml LA dimension(2D): 4.0 cm Time Measurements MV dec time: 0.29 sec Doppler Measurements & Calculations MV E max russell: 66.9 cm/sec Ao V2 max: 76.7 cm/sec LV V1 max: 74.4 cm/sec MV A max russell: 45.7 cm/sec Ao max P.4 mmHg LV V1 max P.2 mmHg MV E/A: 1.5 PA V2 max: 107.3 cm/sec ECHO/Echo Complete W/ Contrast Interpretation Summary Technically difficult sudy. The left ventricular ejection fraction is 55 %. Severe posterior, inferior and inferior apical hypokinesis Ordering Physician: Jay Driscoll Referring Physician: Brett Hernandez Performed By: Tawnya Knott RDCS, RVT
[2022-04-19] MEDS: HEPARIN/D5w 25,000 UNITS 25,000 UNITS/250 ML IV.SOLN. 15 UNITS CONT INF (14:17)
--- NOTE | 2022-04-19 14:30 | EKG12_ITS ---
Test Reason : SHORT OF BREATH Blood Pressure : / mmHG Vent. Rate : 141 BPM Atrial Rate : 141 BPM P-R Int : 096 ms QRS Dur : 090 ms QT Int : 370 ms P-R-T Axes : 000 052 089 degrees QTc Int : 566 ms Sinus tachycardia with short CO Otherwise normal ECG Confirmed by FELICE CALDERON, CHRIS ([id number]), communications editor NIDIA MARTÍNEZ ([id number]) on 04/22/2022 1:45:05 PM Referred By: CARLA Confirmed By:CHRIS VIVEROS MD
[2022-04-19 14:55] LABS: Magnesium 2.4 mg/dL (1.6-2.6); Phosphorus 6.5 mg/dL (2.5-4.9)
[2022-04-19 15:12] LABS: Troponin-I HS 17078 pg/mL (3.0-78.0)
[2022-04-19 15:45] LABS: Reflex Lactate? Y
[2022-04-19] MEDS: Acetaminophen 650 MG/20 ML UDC GT (16:07)
[2022-04-19 16:29] LABS: Lactic Acid 1.5 mmol/L (0.4-1.9)
[2022-04-19 17:01] LABS: M R Staph aureus DNA By PCR Negative (Negative)
[2022-04-19 17:02] LABS: Probe Check PASS; Specimen Processing Control PASS
[2022-04-19] MEDS: 0.9% Normal Saline 1,000 ML 999 ML IV (17:12)
[2022-04-19 17:35] LABS: BNP,B-Type NATRIURETIC PEPTIDE 243.8 pg/mL (0-100)
[2022-04-19 17:44] LABS: Troponin-I HS 24964 pg/mL (3.0-78.0)
[2022-04-19] MEDS: Propofol 10MG/Ml 1,000 MG/100 ML Bottle 18.5 MG CONT INF (20:15)
[2022-04-19] MEDS: 0.9% Normal Saline 1,000 ML 100 ML IV (20:17)
[2022-04-19 20:43] LABS: Partial Thromboplast Time 67.9 Seconds (24.1-36.2)
[2022-04-19 21:09] LABS: CPK Total, Creatine Kinase 939 U/L (39-308); Triglycerides 87 mg/dL
[2022-04-19] MEDS: Atorvastatin Calcium 80 MG Tablet PO (21:14)
[2022-04-19] MEDS: 0.9% Saline Lock 10 ML Syringe IV (21:14)
[2022-04-19] MEDS: Clopidogrel Bisulfate 75 MG Tablet PO (21:14)
[2022-04-19] MEDS: Chlorhexidine 15 ML PO (21:26)
[2022-04-19 21:54] LABS: Troponin-I HS 20680 pg/mL (3.0-78.0)
[2022-04-20] VITALS (40 sets, daily range): BP systolic 77–123; BP diastolic 52–77; PULSE 74–98; RESP 14–21; TEMP 36.5–37.1; O2SAT 91–98
[2022-04-20] MEDS: Propofol 10MG/Ml 1,000 MG/100 ML Bottle 18.5 MG CONT INF (00:58)
--- NOTE | 2022-04-20 01:50 | NURSING ---
Fentanyl drip- According to MAR last titration charted was 04/19/2022 at 2200. Due to drip being charted as transfused when a new bag was hung I was unable to chart previous titrations. 04/19/2022: 2300- Fentanyl 10mcg/hr- 10ml/hr transfusing 04/20/2022: 0000- Fentanyl 10mcg/hr- 10ml/hr transfusing 0056- New bag hung- continuing at same rate of 10ml/hr
[2022-04-20] MEDS: Ipratropium/Albuterol Sulfate 3 ML AMPUL.NEB INHALATION ×6 (02:33→23:01)
[2022-04-20 03:12] LABS: Hemoglobin 13.5 g/dL (13.0-16.5); Mean Corp Hgb Conc 30.7 g/dL (32-36); Mean Corpuscular Hgb 28.7 pg (27.0-32.0); Mean Corpuscular Volume 93.4 fL (80-94); Mean Platelet Vol. 11.8 fl (6.2-12.0); Platelet Count 212 K/mm3 (150-450); RBC Distribution Width CV 13.8 % (11.6-14.6); RBC Distribution Width SD 47.6 fl (35.1-43.9); Red Blood Count 4.71 M/mm3 (4.6-6.2); White Blood Count 17.3 K/mm3 (4.4-11.0)
[2022-04-20 03:18] LABS: Partial Thromboplast Time 66.5 Seconds (24.1-36.2)
[2022-04-20] MEDS: CHLORHEXIDINE GLUC 2% CLOTH 1 EACH TOWELETTE TOPICAL (03:27)
[2022-04-20 04:54] LABS: ALB/GLOB Ratio 0.6 RATIO (0.9-2.4); AST(SGOT) 111 U/L (15-37); Alanine Aminotransfer ALT/SGPT 85 U/L (16-61); Albumin, Serum 2.4 g/dL (3.2-5.0); Alkaline Phosphatase 96 U/L (45-117); Anion Gap 10 (5-15); BUN 39 mg/dL (7-18); BUN/Creat Ratio 14.2 RATIO (10-20); Chloride 105 mmol/L (98-107); Cholesterol 87 mg/dL (200); Creatinine, Serum 2.75 mg/dL (0.70-1.30); EST Glomerular Filtration Rate 25 mL/min (>60); Est Glom Filt Rate - Afr Amer 31 mL/min (>60); Estimated Creatinine Clearance 31.35 ml/min; Globulin 4.2 g/dL (2.2-4.2); Glucose 191 mg/dL (74-106); High Density Lipoprotein 31 mg/dL; Potassium 4.5 mmol/L (3.5-5.1); Protein, Total 6.6 g/dL (6.4-8.2); Sodium Level 140 mmol/L (136-145); Thyroid Stim Hormone (TSH) 0.35 uIU/mL (0.358-3.74); Triglycerides 116 mg/dL; Very Low Density Lipoprotein 23 mg/dL (5-40)
--- NOTE | 2022-04-20 04:56 | EKG12_ITS ---
Test Reason : AM EKG Blood Pressure : / mmHG Vent. Rate : 089 BPM Atrial Rate : 089 BPM P-R Int : 140 ms QRS Dur : 092 ms QT Int : 380 ms P-R-T Axes : 077 049 264 degrees QTc Int : 462 ms Normal sinus rhythm Inferior infarct , age undetermined Abnormal ECG When compared with ECG of 19-APR-2022 12:11, MANUAL COMPARISON REQUIRED, DATA IS UNCONFIRMED Confirmed by FELICE CALDERON, CHRIS ([id number]), science editor NIDIA MARTÍNEZ ([id number]) on 04/22/2022 1:53:50 PM Referred By: ALISSA Confirmed By:CHRIS VIVEROS MD
[2022-04-20 05:21] LABS: Base Excess -2 mmol/L (-2 to +2); Bicarbonate 26.2 mmol/L (22-26); Blood Gas Specimen Type ART; FI02 45; Mode AC; O2 Delivery Device Adult Vent; PEEP 5; PO2 87 mmHG (75-100); RR 18; SITE L Radial; SO2 94 % (95-99); Total Carbon Dioxide 28 mmol/L; Vt 450; pCO2 65.4 mmHg (35-45); pH 7.21 (7.35-7.45)
[2022-04-20] MEDS: 0.9% Saline Lock 10 ML Syringe IV ×2 (05:42→21:00)
[2022-04-20] MEDS: Propofol 10MG/Ml 1,000 MG/100 ML Bottle 12.4 MG CONT INF (05:47)
--- NOTE | 2022-04-20 06:03 | CON.PCM.CC_ITS ---
Assessment & Plan Assessment/Plan (1) Sepsis with acute organ dysfunction without septic shock: PLAN: Plan RECOMMENDATIONS: 1. Respiratory rate, tidal volume and expiratory flow rates have all been optimized on the ventilator. Obtain repeat blood gas in 2 hours. 2. Wean FiO2 to maintain oxygen saturations at or above 90%. 3. Continue empiric antimicrobials. 4. Continue scheduled bronchodilators and IV steroids. 5. Continue heparin infusion and obtain echocardiogram. Cardiology consultation is pending. 6. Obtain renal ultrasound and nephrology consultation. 7. Okay to initiate tube feeds today. IMPRESSIONS: 1. Acute combined respiratory failure The patient presented with an acute COPD exacerbation likely precipitated by pneumonia with questionable outpatient medical compliance and ongoing tobacco dependency. The patient was ultimately intubated in the emergency department. He continues to have thick, copious secretions. Accordingly, the patient will be maintained on assist control mode of mechanical ventilation. Ventilator parameters have been optimized. Plan to repeat arterial blood gas in 2 to 3 ho urs. Wean FiO2 as tolerated to maintain oxygen saturations at or above 90%. Continue scheduled bronchodilators, IV steroids and antimicrobials. Tube feeds can be initiated today from my perspective. 2. Sepsis The patient presented with sepsis due to probable pneumonia with acute sepsis related organ dysfunction as evidenced by acute respiratory failure requiring invasive mechanical ventilatory support, acute kidney injury and lactic acidemia. The patient did receive supplemental IV fluid hydration and will be maintained on empiric antimicrobials. The patient is hemodynamically stable at the present time. 3. Troponin elevation Likely secondary to demand ischemia in the setting of numbers 1 and 2. Echocardiogram is currently pending, as is cardiology consultation. Plan to continue heparin infusion as ordered. 4. Acute kidney injury Most likely prerenal in etiology with possible ischemic ATN in the setting of #1. Creatinine has worsened this morning to 2.75. Will obtain renal ultrasound and nephrology consultation. 5. Hypertension/hyperlipidemia Complicates care, management, recovery and prognosis. Continue home statin. Start tube feeds today for nutritional support. TIME: 40 minutes of critical care time, independent of procedures, was spent addressing the patient's acute combined respiratory failure, sepsis, troponin elevation, acute kidney injury, review of all data and collaboration with the care team. HPI Consult Data Date of Consult: 04/21/22 HPI Narrative Reason for Consultation: Acute Respiratory Failure HPI Narrative: The patient is a 61-year-old male, with a history as outlined below, who presented to the emergency department on April 19 with generalized malaise, worsening shortness of breath and progressive hypoxemia. The patient has known end-stage COPD and was previously being followed by Dr. Mccallum in the pulmonary medicine clinic. However, the patient has been lost to follow-up since April 2020. The patient has an extensive tobacco abuse history and continues to smoke cigarettes daily. On presentation to the emergency department, the patient was noted to be afebrile, hypertensive, tachycardic and tachypneic. Initial laboratory evaluation revealed an elevated white blood cell count to 17,000. Chemistry profile was notable for a creatinine of 1.7, lactate of 3.6, phosphorus of 6.5, AST of 132, ALT of 104 and troponin of 6254. BNP was elevated at 244. Urine analysis was unrevealing. MRSA screen was negative. Although the patient was initially placed on noninvasive positive pressure ventilatory support, he dec ompensated quickly in the emergency department and required endotracheal intubation. The patient did receive supplemental IV fluids and was placed on empiric antimicrobials along with scheduled bronchodilators and IV steroids. He was admitted to the medical intensive care unit for further management. COUNT INCLUDES THE [facility] Medical History Asthma H/O gynecomastia HTN (hypertension) Hyperlipidemia Obesity Seasonal allergies Home Medications albuterol sulfate 90 mcg/actuation aerosol inhaler (ProAir HFA) 1 puff inhalation Q6H PRN Shortness Of Breath 07/11/19 [History Last Taken Unknown] atorvastatin 10 mg tablet 10 mg PO DAILY 07/11/19 [History Last Taken Unknown] lisinopril 20 mg tablet 20 mg PO DAILY 07/11/19 [History Last Taken Unknown] fluticasone fur. 100 mcg-umeclid 62.5 mcg-vilant 25 mcg inhalat.powder (Trelegy Ellipta) 1 inh inhalation DAILY #60 ea 05/01/20 [Rx Last Taken Unknown] montelukast 10 mg tablet 10 mg PO QPM #90 tabs 05/01/20 [Rx Last Taken Unknown] Allergy/AdvReac Type Severity Reaction Status Date / Time No Known Allergies Allergy Verified 04/19/22 11:17 Surgical History History of appendectomy Social History household members: spouse Smoking Status: Current every day smoker tobacco type: cigarettes substance use type: does not use ROS Review of Systems ROS Unobtainable: due to endotracheal tube Physical Exam Const no apparent distress General Appearance: intubated and patient mechanically ventilated HEENT normocephalic and head/scalp atraumatic Mouth: endotracheal tube in place and OG tube in place Eyes PERRL and EOMs intact bilaterally Neck supple General: trachea midline Chest inspection of chest normal Resp Auscultation: diminished lung sounds; Negative for rales, rhonchi or wheezes Cardio regular rate and regular rhythm GI normal to inspection, nondistended, normoactive bowel sounds Extremity no clubbing, cyanosis or edema Skin no rashes or lesions noted Neuro Sensorium / Orientation: sedated on vent Lab / Micro Data Result Diagrams: 04/21/22 04:10 04/21/22 05:00 Labs: Laboratory Results - last 24 hr 04/19/22 11:25: WBC 16.9 H, RBC 5.72, Hgb 17.1 H, Hct 52.9, MCV 92.5, MCH 29.9, MCHC 32.3, RDW Std Deviation 45.6 H, RDW Coeff of Teressa 13.4, Plt Count 248, MPV 11.2, Immature Gran % (Auto) 0.600, Neut % (Auto) 87.8 H, Lymph % (Auto) 4.8 L, [place] % (Auto) 5.1, Eos % (Auto) 1.4, Baso % (Auto) 0.3, Absolute Neuts (auto) 14.9 H, Absolute Lymphs (auto) 0.81 L, Nucleated RBC % 0 04/19/22 11:25: PT 15.7 H, INR 1.3, APTT 28.7 04/19/22 11:25: Sodium 137, Potassium 4.4, Chloride 99, Carbon Dioxide 26.0, Anion Gap 12, BUN 24 H, Creatinine 1.70 H, Estim Creat Clear Calc 52.22, Est GFR (MDRD) Af Amer 53 L, Est GFR (MDRD) Non-Af 44 L, BUN/Creatinine Ratio 14.1, Glucose 210 H, Calcium 9.4, Total Bilirubin 0.90, AST 132 H, ALT 104 H, Alkaline Phosphatase 135 H, Troponin I High Sens 6254 H*, Total Protein 8.4 H, Albumin 3.3, Globulin 5.1 H, Albumin/Globulin Ratio 0.6 L 04/19/22 11:25: Lactic Acid 3.6 H* 04/19/22 11:25: Phosphorus 6.5 H, Magnesium 2.4 04/19/22 12:00: Urine Color Yellow, Urine Clarity Sl. Cloudy, Urine pH 5.0, Ur Specific [place] 1.025, Urine Protein 500 H, Urine Glucose (UA) Normal, Urine Ketones 5 H, Urine Occult Blood 150 H, Urine Nitrite Negative, Urine Bilirubin Negative, Urine Urobilinogen 4 H, Ur Leukocyte Esterase Negative, Urine RBC 0 SEEN, Urine WBC 0 SEEN, Ur Squamous Epith Cells 0 SEEN, Urine Bacteria 0 SEEN, Fine Granular Casts 0-5 SEEN, Urine Mucus 0 SEEN 04/19/22 14:45: Troponin I High Sens [id number] H* 04/19/22 15:22: MRSA (PCR) Negative 04/19/22 15:50: Lactic Acid 1.5 04/19/22 17:00: Troponin I High Sens [id number] H* 04/19/22 17:00: B-Natriuretic Peptide 243.8 H 04/19/22 17:00: Total Creatine Kinase 939 H, Triglycerides 87 04/19/22 20:15: APTT 67.9 H 04/19/22 20:15: Troponin I High Sens [id number] H* 04/20/22 02:45: WBC 17.3 H, RBC 4.71, Hgb 13.5, Hct 44.0, MCV 93.4, MCH 28.7, MCHC 30.7 L, RDW Std Deviation 47.6 H, RDW Coeff of Teressa 13.8, Plt Count 212, MPV 11.8 04/20/22 02:45: Sodium 140, Potassium 4.5, Chloride 105, Carbon Dioxide 25.0, Anion Gap 10, BUN 39 H, Creatinine 2.75 H, Estim Creat Clear Calc 31.35, Est GFR (MDRD) Af Amer 31 L, Est GFR (MDRD) Non-Af 25 L, BUN/Creatinine Ratio 14.2, Glucose 191 H, Calcium 8.0 L, Total Bilirubin 0.40, AST 111 H, ALT 85 H, Alkaline Phosphatase 96, Total Protein 6.6, Albumin 2.4 L, Globulin 4.2, Albumin/Globulin Ratio 0.6 L, Triglycerides 116, Cholesterol 87, LDL Cholesterol 33, VLDL Cholesterol 23, HDL Cholesterol 31 L, TSH 0.35 L 04/20/22 02:45: APTT 66.5 H Micro: Microbiology 04/19/22 15:15 Urine Catheter - Christie Legionella Antigen - Final 04/19/22 15:15 Urine Catheter - Christie Streptococcus pneumoniae Antigen (M - Final 04/19/22 12:00 Nasal Secretion SARS-CoV-2 Antigen (Rapid) - Final ABG Data ABG results: ABG 04/19/22 04/20/22 12:27 05:13 Specimen Type ART ART Sample Site R Brach L Radial pH 7.20 L 7.21 L Bicarbonate Actual 26.2 H 26.2 H Total CO2 28 28 Base Excess -2 -2 O2 Saturation 97 94 L O2 % 65 45 ABG pCO2 66.5 H 65.4 H ABG pO2 116 H 87 Colin Test N/A Respiration Rate 14 18 O2 Delivery Device Adult Vent Vent Mode AC AC Tidal Volume 450 450 POC PEEP 5 5 Crit Call To/Read Back Yes Blood Gas Notified Whom raymundo Radiology Impression Chest X-Ray 04/19/22 11:23 IMPRESSION: Mild atelectatic changes in the left lung base. Electronically Signed: Tom Lei MD at 12:27 EDT , KUB X-Ray 04/19/22 11:42 IMPRESSION: Nasogastric tube with the tip in the region of the gastric fundus. Electronically Signed: Tom Lei MD at 12:35 EDT , Charges/Coding Procedures Hospitalists Procedures: [id number] Critial Care 1st Hr
[2022-04-20] MEDS: TITRATION PARAMETER CHANGE 1 EACH IV (06:24)
--- NOTE | 2022-04-20 07:29 | RAD_ITS ---
STUDY: X-RAY CHEST REASON FOR EXAM: Male, 61 years old. Respiratory failure, fever TECHNIQUE: Single AP portable view of the chest. COMPARISON: Yesterday FINDINGS: Stable appearance of the ET and NG tubes. EKG leads overlie the chest. Lungs are expanded with persistent cardiophrenic atelectasis. No organized infiltrate or effusion. Normal size heart. Normal mediastinum and homer. Normal visualized pulmonary arteries. Normal visualized aortic arch and descending thoracic aorta. Normal visualized thoracic spine. Normal visualized ribs, clavicles, and shoulders. There is no demonstrated abnormality of the visualized soft tissue structures of the upper abdomen. RAD/Chest 1 View (Portable) IMPRESSION: No interval change Electronically Signed: Niall Glaser MD at 8:29 EDT ,
[2022-04-20 07:40] LABS: Allen Test Positive; Base Excess -1 mmol/L (-2 to +2); Bicarbonate 26.7 mmol/L (22-26); Blood Gas Specimen Type ART; FI02 45; Mode AC; O2 Delivery Device Adult Vent; PEEP 5; PO2 86 mmHG (75-100); RR 14; SITE L Radial; SO2 94 % (95-99); Total Carbon Dioxide 29 mmol/L; Vt 500; pCO2 62.1 mmHg (35-45); pH 7.24 (7.35-7.45)
[2022-04-20] MEDS: Chlorhexidine 15 ML PO ×2 (08:09→20:56)
[2022-04-20] MEDS: Aspirin E.C. 81 MG Tablet PO (08:09)
[2022-04-20] MEDS: HEPARIN/D5w 25,000 UNITS 25,000 UNITS/250 ML IV.SOLN. 15 UNITS CONT INF (08:25)
[2022-04-20 09:22] LABS: Partial Thromboplast Time 61.7 Seconds (24.1-36.2)
--- NOTE | 2022-04-20 10:21 | CON.PCM.CA_ITS ---
Assessment & Plan Assessment/Plan (1) Non-ST elevated myocardial infarction: PLAN: Most likely type II. Patient however has risk factors for coronary artery disease. He will need further work-up for coronary artery disease once his oth er issues including respiratory failure and acute renal failure resolved. Agree with starting aspirin and clopidogrel. Continue heparin for now. Check 2D echocardiogram with Doppler. (2) Sepsis with acute organ dysfunction without septic shock: PLAN: As per critical care. (3) JOHNNY (acute kidney injury): PLAN: Secondary to #2 above. Monitor. Consider nephrology consult. (4) Tobacco abuse: (5) COPD with asthma: PLAN: As per pulmonology. (6) HTN (hypertension): PLAN: Presently blood pressure on the lower side secondary to sepsis. (7) Hyperlipidemia: PLAN: On atorvastatin. HPI Consult Data Date of Consult: 04/20/22 HPI Narrative HPI Narrative: MELISSA WANG, is a 61 M who presented to the emergency room with complaints of difficulty in breathing and generalized malaise. Apparently he had not been feeling well for the last 3 or 4 days. In the emergency room, he was noted to be in respiratory failure and was intubated. Presently he is being treated for community-acquired pneumonia, sepsis and acute renal failure. As part of his work-up, troponins were also checked. These were noted to be elevated. Subsequ ently we have been asked for evaluation and management. No previous history of coronary artery disease. History of nicotine dependence and hypertension. [facility] Medical History Asthma H/O gynecomastia HTN (hypertension) Hyperlipidemia Obesity Seasonal allergies Home Medications albuterol sulfate 90 mcg/actuation aerosol inhaler (ProAir HFA) 1 puff inhalation Q6H PRN Shortness Of Breath 07/11/19 [History Last Taken Unknown] atorvastatin 10 mg tablet 10 mg PO DAILY 07/11/19 [History Last Taken Unknown] lisinopril 20 mg tablet 20 mg PO DAILY 07/11/19 [History Last Taken Unknown] fluticasone fur. 100 mcg-umeclid 62.5 mcg-vilant 25 mcg inhalat.powder (Trelegy Ellipta) 1 inh inhalation DAILY #60 ea 05/01/20 [Rx Last Taken Unknown] montelukast 10 mg tablet 10 mg PO QPM #90 tabs 10/20/20 [Rx Last Taken Unknown] Allergy/AdvReac Type Severity Reaction Status Date / Time No Known Allergies Allergy Verified 04/19/22 11:17 Surgical History History of appendectomy Social History household members: spouse Smoking Status: Current every day smoker tobacco type: cigarettes substance use type: does not use Physical Exam Narrative Sedated on ventilator. Heart sounds 1 and 2 are noted. Chest examination shows decreased breath sounds bilaterally. Abdomen soft. Trace bilateral ankle edema is noted. Risk Stratification Risk Stratification Applicable: No Objective Data Vital Signs: Vital Signs Temp Pulse Resp BP Pulse Ox O2 Del Method O2 Flow Rate 98.1 F 86 18 96/68 92 Mechanical Ventilator 15 04/20/22 09:00 04/20/22 09:00 04/20/22 09:00 04/20/22 09:00 04/20/22 09:00 04/20/22 09:00 04/19/22 15:00 FiO2 45 04/20/22 09:00 Oxygen Flow Rate (L/min) 15 Oxygen Delivery Method Mechanical Ventilator Weight: 216 lb 7.903 oz Body Mass Index (BMI) 28.6 Intake & Output: Intake and Output for Last 24 Hours 04/18/22 04/19/22 04/20/22 23:59 23:59 23:59 Intake Total 2419.30 / 2467.80 1696.06 / 1696.06 Output Total 260 / 310 70 / 70 Balance 2159.30 / 2157.80 1626.06 / 1626.06 Lab / Micro Data Attestation: I reviewed the patient's lab results. Result Diagrams: 04/20/22 02:45 04/20/22 02:45 Labs: Laboratory Results - last 24 hr 04/19/22 11:25: WBC 16.9 H, RBC 5.72, Hgb 17.1 H, Hct 52.9, MCV 92.5, MCH 29.9, MCHC 32.3, RDW Std Deviation 45.6 H, RDW Coeff of Teressa 13.4, Plt Count 248, MPV 1 1.2, Immature Gran % (Auto) 0.600, Neut % (Auto) 87.8 H, Lymph % (Auto) 4.8 L, [place] % (Auto) 5.1, Eos % (Auto) 1.4, Baso % (Auto) 0.3, Absolute Neuts (auto) 14.9 H, Absolute Lymphs (auto) 0.81 L, Nucleated RBC % 0 04/19/22 11:25: PT 15.7 H, INR 1.3, APTT 28.7 04/19/22 11:25: Sodium 137, Potassium 4.4, Chloride 99, Carbon Dioxide 26.0, An ion Gap 12, BUN 24 H, Creatinine 1.70 H, Estim Creat Clear Calc 52.22, Est GFR (MDRD) Af Amer 53 L, Est GFR (MDRD) Non-Af 44 L, BUN/Creatinine Ratio 14.1, Glucose 210 H, Calcium 9.4, Total Bilirubin 0.90, AST 132 H, ALT 104 H, Alkaline Phosphatase 135 H, Troponin I High Sens 6254 H*, Total Protein 8.4 H, Albumin 3.3, Globulin 5.1 H, Albumin/Globulin Ratio 0.6 L 04/19/22 11:25: Lactic Acid 3.6 H* 04/19/22 11:25: Phosphorus 6.5 H, Magnesium 2.4 04/19/22 12:00: Urine Color Yellow, Urine Clarity Sl. Cloudy, Urine pH 5.0, Ur Specific [place] 1.025, Urine Protein 500 H, Urine Glucose (UA) Normal, Urine Ketones 5 H, Urine Occult Blood 150 H, Urine Nitrite Negative, Urine Bilirubin Negative, Urine Urobilinogen 4 H, Ur Leukocyte Esterase Negative, Urine RBC 0 SEEN, Urine WBC 0 SEEN, Ur Squamous Epith Cells 0 SEEN, Urine Bacteria 0 SEEN, Fine Granular Casts 0-5 SEEN, Urine Mucus 0 SEEN 04/19/22 14:45: Troponin I High Sens 58618 H* 04/19/22 15:22: MRSA (PCR) Negative 04/19/22 15:50: Lactic Acid 1.5 04/19/22 17:00: Troponin I High Sens 63136 H* 04/19/22 17:00: B-Natriuretic Peptide 243.8 H 04/19/22 17:00: Total Creatine Kinase 939 H, Triglycerides 87 04/19/22 20:15: APTT 67.9 H 04/19/22 20:15: Troponin I High Sens 41861 H* 04/20/22 02:45: WBC 17.3 H, RBC 4.71, Hgb 13.5, Hct 44.0, MCV 93.4, MCH 28.7, MCHC 30.7 L, RDW Std Deviation 47.6 H, RDW Coeff of Teressa 13.8, Plt Count 212, MPV 11.8 04/20/22 02:45: Sodium 140, Potassium 4.5, Chloride 105, Carbon Dioxide 25.0, Anion Gap 10, BUN 39 H, Creatinine 2.75 H, Estim Creat Clear Calc 31.35, Est GFR (MDRD) Af Amer 31 L, Est GFR (MDRD) Non-Af 25 L, BUN/Creatinine Ratio 14.2, Glucose 191 H, Calcium 8.0 L, Total Bilirubin 0.40, AST 111 H, ALT 85 H, Alkaline Phosphatase 96, Total Protein 6.6, Albumin 2.4 L, Globulin 4.2, Albumin/Globulin Ratio 0.6 L, Triglycerides 116, Cholesterol 87, LDL Cholesterol 33, VLDL Cholesterol 23, HDL Cholesterol 31 L, TSH 0.35 L 04/20/22 02:45: APTT 66.5 H 04/20/22 08:20: APTT 61.7 H Micro: Microbiology 04/19/22 15:15 Mucosa - Nose Respiratory Panel (PCR) - Final Parainfluenza 4 04/19/22 15:15 Urine Catheter - Christie Legionella Antigen - Final 04/19/22 15:15 Urine Catheter - Christie Streptococcus pneumoniae Antigen (M - Final 04/19/22 12:00 Nasal Secretion SARS-CoV-2 Antigen (Rapid) - Final ABG Data ABG results: ABG 04/19/22 04/20/22 04/20/22 12:27 05:13 07:37 Specimen Type ART ART ART Sample Site R Brach L Radial L Radial pH 7.20 L 7.21 L 7.24 L Bicarbonate Actual 26.2 H 26.2 H 26.7 H Total CO2 28 28 29 Base Excess -2 -2 -1 O2 Saturation 97 94 L 94 L O2 % 65 45 45 ABG pCO2 66.5 H 65.4 H 62.1 H ABG pO2 116 H 87 86 Colin Test N/A Positive Respiration Rate 14 18 14 O2 Delivery Device Adult Vent Adult Vent Vent Mode AC AC AC Tidal Volume 450 450 500 POC PEEP 5 5 5 Crit Call To/Read Back Yes Blood Gas Notified Whom raymundo Rhythm Strip Rhythm Strip: Sinus Rhythm Cardiology Labs/Tests 04/19/22 11:25: WBC 16.9 H, RBC 5.72, Hgb 17.1 H, Hct 52.9, MCV 92.5, MCH 29.9, MCHC 32.3, Plt Count 248, MPV 11.2, Immature Gran % (Auto) 0.600, Neut % (Auto) 87.8 H, Lymph % (Auto) 4.8 L, [place] % (Auto) 5.1, Eos % (Auto) 1.4, Baso % (Auto) 0.3, Absolute Neuts (auto) 14.9 H, Nucleated RBC % 0 04/19/22 11:25: PT 15.7 H, INR 1.3, APTT 28.7 04/19/22 11:25: Sodium 137, Potassium 4.4, Chloride 99, Carbon Dioxide 26.0, Anion Gap 12, BUN 24 H, Creatinine 1.70 H, Est GFR (MDRD) Af Amer 53 L, Est GFR (MDRD) Non-Af 44 L, BUN/Creatinine Ratio 14.1, Glucose 210 H, Calcium 9.4, Total Bilirubin 0.90 04/19/22 11:25: Lactic Acid 3.6 H* 04/19/22 11:25: Phosphorus 6.5 H, Magnesium 2.4 04/19/22 12:00: Urine Color Yellow, Urine Clarity Sl. Cloudy, Urine pH 5.0, Ur Specific [place] 1.025, Urine Protein 500 H, Urine Glucose (UA) Normal, Urine Ketones 5 H, Urine Occult Blood 150 H, Urine Nitrite Negative, Urine Bilirubin Negative, Urine Urobilinogen 4 H, Ur Leukocyte Esterase Negative, Urine RBC 0 SEEN, Urine WBC 0 SEEN 04/19/22 12:27: pH 7.20 L, Bicarbonate Actual 26.2 H, Base Excess -2, O2 Saturation 97, ABG pCO2 66.5 H, ABG pO2 116 H 04/19/22 15:50: Lactic Acid 1.5 04/19/22 17:00: B-Natriuretic Peptide 243.8 H 04/19/22 17:00: Triglycerides 87 04/19/22 20:15: APTT 67.9 H 04/20/22 02:45: WBC 17.3 H, RBC 4.71, Hgb 13.5, Hct 44.0, MCV 93.4, MCH 28.7, MCHC 30.7 L, Plt Count 212, MPV 11.8 04/20/22 02:45: Sodium 140, Potassium 4.5, Chloride 105, Carbon Dioxide 25.0, Anion Gap 10, BUN 39 H, Creatinine 2.75 H, Est GFR (MDRD) Af Amer 31 L, Est GFR (MDRD) Non-Af 25 L, BUN/Creatinine Ratio 14.2, Glucose 191 H, Calcium 8.0 L, Total Bilirubin 0.40, Triglycerides 116, Cholesterol 87, LDL Cholesterol 33, VLDL Cholesterol 23, HDL Cholesterol 31 L 04/20/22 02:45: APTT 66.5 H 04/20/22 05:13: pH 7.21 L, Bicarbonate Actual 26.2 H, Base Excess -2, O2 Saturation 94 L, ABG pCO2 65.4 H, ABG pO2 87, Colin Test N/A 04/20/22 07:37: pH 7.24 L, Bicarbonate Actual 26.7 H, Base Excess -1, O2 Satura tion 94 L, ABG pCO2 62.1 H, ABG pO2 86, Colin Test Positive 04/20/22 08:20: APTT 61.7 H Rhythm: EKG: Normal sinus rhythm. Inferior Q waves suggestive of old inferior [place]. Nonspecific ST changes. ECHO: Stress Test: Cardiac Cath: PCI: CT Surgery: Holter monitor: EPS: PPM: CXR: Chest CT Scan: Radiography Diagnostic Testing: Radiology Impression Chest X-Ray 04/19/22 11:23 IMPRESSION: Mild atelectatic changes in the left lung base. Electronically Signed: Tom Lei MD at 12:27 EDT , KUB X-Ray 04/19/22 11:42 IMPRESSION: Nasogastric tube with the tip in the region of the gastric fundus. Electronically Signed: Tom Lei MD at 12:35 EDT , Chest X-Ray 04/20/22 07:29 IMPRESSION: No interval change Electronically Signed: Niall Glaser MD at 8:29 EDT ,
--- NOTE | 2022-04-20 10:57 | PCM.CONS.R ---
Assessment & Plan Assessment/Plan (1) JOHNNY (acute kidney injury): PLAN: Baseline renal function is presumably normal. Serum creatinine was 0.91 mg/dL in July 2020. Acute kidney injury is likely due to prerenal azotemia that may have evolved to ischemic ATN given transient hypotension and prior use of lisinopril. Urinalysis also showed high specific gravity without glucosuria which also suggests volume depletion. The patient does have proteinuria without prior history of diabetes. However, I have low suspicion for glomerulonephritis because there is no significant RBCs. Will check urine indices. We will also check urine protein to creatinine ratio. We will also check renal ultrasound to assess kidney size and for any occult obstruction. Prior serum creatinine before this admission is more than a-year-old. Agree with continuing IV fluid to volume expand the patient. Patient is not hyperkalemic. There is no signs of volume overload. The patient is acidemic, so I suspect he has both metabolic acidosis from JOHNNY and alkalosis from volume depletion. Serum bicarbonate level, interestingly, 25 mmol/L. However, blood gas was sent 4.5 hours after the last metabolic panel. I will switch maintenance fluid to LR instead of normal saline since the patient has acidemic blood gas. Nevertheless, there is no urgent need for kidney replacement therapy. Check renal function again later today to determine trajectory of his renal function. (2) Acute respiratory failure with hypoxia and hypercapnia: PLAN: The patient is ventilator dependent. Ventilator management as per pulmonary/critical care medicine. (3) HTN (hypertension): PLAN: Agree with holding lisinopril for now because of JOHNNY. Monitor BP. HPI Consult Data Date of Consult: 04/20/22 HPI Narrative Reason for Consultation: JOHNNY HPI Narrative: MELISSA WANG, is a 61-year-old man with past history of COPD, hypertension, hyperlipidemia and morbid obesity. The patient presented to the hospital on 04/19/2022 with a 3-day history of progressive increase in shortness of breath. On presentation to the emergency department, he was found to be severely hypoxemic with oxygen saturation of 70%. He was, therefore, intubated in the ED. He was initially hypertensive on presentation, but he became transiently hypotensive and early afternoon of 04/19/2022 although his map was never below 60 mmHg. The patient is currently on mechanical ventilator and cannot provide history. Nephrology is asked see the patient because of acute kidney injury. Serum creatinine was 1.70 mg/dL on presentation on 04/19/2022 at 11:25 AM. Serum creatinine has increased to 2.75 mg/dL at 2:45 AM this morning. The most recently available serum creatinine prior to this admission was from 08/06/2020 and was 0.90 mg/dL. The patient had been on lisinopril prior to admission. COUNTS INCLUDE 234 BEDS AT THE [facility] Medical History Asthma H/O gynecomastia HTN (hypertension) Hyperlipidemia Obesity Seasonal allergies Home Medications albuterol sulfate 90 mcg/actuation aerosol inhaler (ProAir HFA) 1 puff inhalation Q6H PRN Shortness Of Breath 07/11/19 [History Last Taken Unknown] atorvastatin 10 mg tablet 10 mg PO DAILY 07/11/19 [History Last Taken Unknown] lisinopril 20 mg tablet 20 mg PO DAILY 07/11/19 [History Last Taken Unknown] fluticasone fur. 100 mcg-umeclid 62.5 mcg-vilant 25 mcg inhalat.powder (Trelegy Ellipta) 1 inh inhalation DAILY #60 ea 05/01/20 [Rx Last Taken Unknown] montelukast 10 mg tablet 10 mg PO QPM #90 tabs 05/01/20 [Rx Last Taken Unknown] Allergy/AdvReac Type Severity Reaction Status Date / Time No Known Allergies Allergy Verified 04/19/22 11:17 Surgical History History of appendectomy Social History household members: spouse Smoking Status: Current every day smoker tobacco type: cigarettes substance use type: does not use ROS ROS Narrative Cannot do ROS beacuse patient is intubated/seadted. Physical Exam Narrative Appearance: Sedated, on mechanical ventilator. HEENT: Atraumatic, normocephalic. Mucous membrane moist. Intubated. PERRLA. Neck: Supple. Heart: Normal S1, S2. No rubs, or murmurs. Lungs: Coarse breath sound anteriorly, expiratory wheeze. Abdomen: Normal bowel sound, soft, nontender, no guarding or rebound. Extremities: No clubbing or cyanosis. There is no edema in the lower extremities bilaterally. Neurologic: No focal neurologic deficits. Skin: Warm and dry, no rash. Lab / Micro Data Result Diagrams: 04/20/22 02:45 04/20/22 02:45 Labs: Laboratory Results - last 24 hr 04/19/22 11:25: WBC 16.9 H, RBC 5.72, Hgb 17.1 H, Hct 52.9, MCV 92.5, MCH 29.9, MCHC 32.3, RDW Std Deviation 45.6 H, RDW Coeff of Teressa 13.4, Plt Count 248, MPV 11.2, Immature Gran % (Auto) 0.600, Neut % (Auto) 87.8 H, Lymph % (Auto) 4.8 L, [place] % (Auto) 5.1, Eos % (Auto) 1.4, Baso % (Auto) 0.3, Absolute Neuts (auto) 14.9 H, Absolute Lymphs (auto) 0.81 L, Nucleated RBC % 0 04/19/22 11:25: PT 15.7 H, INR 1.3, APTT 28.7 04/19/22 11:25: Sodium 137, Potassium 4.4, Chloride 99, Carbon Dioxide 26.0, Anion Gap 12, BUN 24 H, Creatinine 1.70 H, Estim Creat Clear Calc 52.22, Est GFR (MDRD) Af Amer 53 L, Est GFR (MDRD) Non-Af 44 L, BUN/Creatinine Ratio 14.1, Glucose 210 H, Calcium 9.4, Total Bilirubin 0.90, AST 132 H, ALT 104 H, Alkaline Phosphatase 135 H, Troponin I High Sens 6254 H*, Total Protein 8.4 H, Albumin 3.3, Globulin 5.1 H, Albumin/Globulin Ratio 0.6 L 04/19/22 11:25: Lactic Acid 3.6 H* 04/19/22 11:25: Phosphorus 6.5 H, Magnesium 2.4 04/19/22 12:00: Urine Color Yellow, Urine Clarity Sl. Cloudy, Urine pH 5.0, Ur Specific [place] 1.025, Urine Protein 500 H, Urine Glucose (UA) Normal, Urine Ketones 5 H, Urine Occult Blood 150 H, Urine Nitrite Negative, Urine Bilirubin Negative, Urine Urobilinogen 4 H, Ur Leukocyte Esterase Negative, Urine RBC 0 SEEN, Urine WBC 0 SEEN, Ur Squamous Epith Cells 0 SEEN, Urine Bacteria 0 SEEN, Fine Granular Casts 0-5 SEEN, Urine Mucus 0 SEEN 04/19/22 14:45: Troponin I High Sens 74518 H* 04/19/22 15:22: MRSA (PCR) Negative 04/19/22 15:50: Lactic Acid 1.5 04/19/22 17:00: Troponin I High Sens [id number] H* 04/19/22 17:00: B-Natriuretic Peptide 243.8 H 04/19/22 17:00: Total Creatine Kinase 939 H, Triglycerides 87 04/19/22 20:15: APTT 67.9 H 04/19/22 20:15: Troponin I High Sens 97545 H* 04/20/22 02:45: WBC 17.3 H, RBC 4.71, Hgb 13.5, Hct 44.0, MCV 93.4, MCH 28.7, MCHC 30.7 L, RDW Std Deviation 47.6 H, RDW Coeff of Teressa 13.8, Plt Count 212, MPV 11.8 04/20/22 02:45: Sodium 140, Potassium 4.5, Chloride 105, Carbon Dioxide 25.0, Anion Gap 10, BUN 39 H, Creatinine 2.75 H, Estim Creat Clear Calc 31.35, Est GFR (MDRD) Af Amer 31 L, Est GFR (MDRD) Non-Af 25 L, BUN/Creatinine Ratio 14.2, Glucose 191 H, Calcium 8.0 L, Total Bilirubin 0.40, AST 111 H, ALT 85 H, Alkaline Phosphatase 96, Total Protein 6.6, Albumin 2.4 L, Globulin 4.2, Albumin/Globulin Ratio 0.6 L, Triglycerides 116, Cholesterol 87, LDL Cholesterol 33, VLDL Cholesterol 23, HDL Cholesterol 31 L, TSH 0.35 L 04/20/22 02:45: APTT 66.5 H 04/20/22 08:20: APTT 61.7 H Micro: Microbiology 04/19/22 15:15 Mucosa - Nose Respiratory Panel (PCR) - Final Parainfluenza 4 04/19/22 15:15 Urine Catheter - Christie Legionella Antigen - Final 04/19/22 15:15 Urine Catheter - Christie Streptococcus pneumoniae Antigen (M - Final 04/19/22 12:00 Nasal Secretion SARS-CoV-2 Antigen (Rapid) - Final ABG Data ABG results: ABG 04/19/22 04/20/22 04/20/22 12:27 05:13 07:37 Specimen Type ART ART ART Sample Site R Brach L Radial L Radial pH 7.20 L 7.21 L 7.24 L Bicarbonate Actual 26.2 H 26.2 H 26.7 H Total CO2 28 28 29 Base Excess -2 -2 -1 O2 Saturation 97 94 L 94 L O2 % 65 45 45 ABG pCO2 66.5 H 65.4 H 62.1 H ABG pO2 116 H 87 86 Colin Test N/A Positive Respiration Rate 14 18 14 O2 Delivery Device Adult Vent Adult Vent Vent Mode AC AC AC Tidal Volume 450 450 500 POC PEEP 5 5 5 Crit Call To/Read Back Yes Blood Gas Notified Whom raymundo Rhythm Strip Rhythm Strip: Sinus Rhythm Radiology Impression Chest X-Ray 04/19/22 11:23 IMPRESSION: Mild atelectatic changes in the left lung base. Electronically Signed: Tom Lei MD at 12:27 EDT , KUB X-Ray 04/19/22 11:42 IMPRESSION: Nasogastric tube with the tip in the region of the gastric fundus. Electronically Signed: Tom Lei MD at 12:35 EDT , Chest X-Ray 04/20/22 07:29 IMPRESSION: No interval change Electronically Signed: Niall Glaser MD at 8:29 EDT ,
[2022-04-20] MEDS: Vital AF 1.2 Cal Liquid 1,000 ML 15 ML GT (11:06)
--- NOTE | 2022-04-20 11:08 | PN.HOSP_ITS ---
Subjective Subjective Follow-up for acute combined respiratory failure, sepsis, JOHNNY, non-STEMI type II Patient is still intubated. Vent settings discussed with the civil engineering technician. On conservative management for non-STEMI. Objective Data Objective Data Vital Signs: Vital Signs Temp Pulse Resp BP Pulse Ox O2 Del Method O2 Flow Rate 97.9 F 84 14 100/72 93 Mechanical Ventilator 15 04/20/22 06:00 04/20/22 06:32 04/20/22 06:32 04/20/22 06:00 04/20/22 06:32 04/20/22 06:00 04/19/22 15:00 FiO2 45 04/20/22 06:32 Oxygen Flow Rate (L/min) 15 Oxygen Delivery Method Mechanical Ventilator Weight: 216 lb 7.903 oz Body Mass Index (BMI) 28.6 Intake & Output: Intake and Output for Last 24 Hours 04/18/22 04/19/22 04/20/22 23:59 23:59 23:59 Intake Total 2419.30 / 2467.80 1351.34 / 1351.34 Output Total 260 / 310 70 / 70 Balance 2159.30 / 2157.80 1281.34 / 1281.34 Lab / Micro Data Result Diagrams: 04/20/22 02:45 04/20/22 02:45 Labs: Laboratory Results - last 24 hr 04/19/22 11:25: WBC 16.9 H, RBC 5.72, Hgb 17.1 H, Hct 52.9, MCV 92.5, MCH 29.9, MCHC 32.3, RDW Std Deviation 45.6 H, RDW Coeff of Teressa 13.4, Plt Count 248, MPV 11.2, Immature Gran % (Auto) 0.600, Neut % (Auto) 87.8 H, Lymph % (Auto) 4.8 L, [place] % (Auto) 5.1, Eos % (Auto) 1.4, Baso % (Auto) 0.3, Absolute Neuts (auto) 14.9 H, Absolute Lymphs (auto) 0.81 L, Nucleated RBC % 0 04/19/22 11:25: PT 15.7 H, INR 1.3, APTT 28.7 04/19/22 11:25: Sodium 137, Potassium 4.4, Chloride 99, Carbon Dioxide 26.0, Anion Gap 12, BUN 24 H, Creatinine 1.70 H, Estim Creat Clear Calc 52.22, Est GFR (MDRD) Af Amer 53 L, Est GFR (MDRD) Non-Af 44 L, BUN/Creatinine Ratio 14.1, Glucose 210 H, Calcium 9.4, Total Bilirubin 0.90, AST 132 H, ALT 104 H, Alkaline Phosphatase 135 H, Troponin I High Sens 6254 H*, Total Protein 8.4 H, Albumin 3.3, Globulin 5.1 H, Albumin/Globulin Ratio 0.6 L 04/19/22 11:25: Lactic Acid 3.6 H* 04/19/22 11:25: Phosphorus 6.5 H, Magnesium 2.4 04/19/22 12:00: Urine Color Yellow, Urine Clarity Sl. Cloudy, Urine pH 5.0, Ur Specific [place] 1.025, Urine Protein 500 H, Urine Glucose (UA) Normal, Urine Ketones 5 H, Urine Occult Blood 150 H, Urine Nitrite Negative, Urine Bilirubin Negative, Urine Urobilinogen 4 H, Ur Leukocyte Esterase Negative, Urine RBC 0 SEEN, Urine WBC 0 SEEN, Ur Squamous Epith Cells 0 SEEN, Urine Bacteria 0 SEEN, Fine Granular Casts 0-5 SEEN, Urine Mucus 0 SEEN 04/19/22 14:45: Troponin I High Sens 04391 H* 04/19/22 15:22: MRSA (PCR) Negative 04/19/22 15:50: Lactic Acid 1.5 04/19/22 17:00: Troponin I High Sens 50243 H* 04/19/22 17:00: B-Natriuretic Peptide 243.8 H 04/19/22 17:00: Total Creatine Kinase 939 H, Triglycerides 87 04/19/22 20:15: APTT 67.9 H 04/19/22 20:15: Troponin I High Sens 47034 H* 04/20/22 02:45: WBC 17.3 H, RBC 4.71, Hgb 13.5, Hct 44.0, MCV 93.4, MCH 28.7, MCHC 30.7 L, RDW Std Deviation 47.6 H, RDW Coeff of Teressa 13.8, Plt Count 212, MPV 11.8 04/20/22 02:45: Sodium 140, Potassium 4.5, Chloride 105, Carbon Dioxide 25.0, Anion Gap 10, BUN 39 H, Creatinine 2.75 H, Estim Creat Clear Calc 31.35, Est GFR (MDRD) Af Amer 31 L, Est GFR (MDRD) Non-Af 25 L, BUN/Creatinine Ratio 14.2, Glucose 191 H, Calcium 8.0 L, Total Bilirubin 0.40, AST 111 H, ALT 85 H, Alk pancho Phosphatase 96, Total Protein 6.6, Albumin 2.4 L, Globulin 4.2, Albumin/Globulin Ratio 0.6 L, Triglycerides 116, Cholesterol 87, LDL Cholesterol 33, VLDL Cholesterol 23, HDL Cholesterol 31 L, TSH 0.35 L 04/20/22 02:45: APTT 66.5 H Micro: Microbiology 04/19/22 15:15 Mucosa - Nose Respiratory Panel (PCR) - Final Parainfluenza 4 04/19/22 15:15 Urine Catheter - Christie Legionella Antigen - Final 04/19/22 15:15 Urine Catheter - Christie Streptococcus pneumoniae Antigen (M - Final 04/19/22 12:00 Nasal Secretion SARS-CoV-2 Antigen (Rapid) - Final ABG Data ABG results: ABG 04/19/22 04/20/22 12:27 05:13 Specimen Type ART ART Sample Site R Brach L Radial pH 7.20 L 7.21 L Bicarbonate Actual 26.2 H 26.2 H Total CO2 28 28 Base Excess -2 -2 O2 Saturation 97 94 L O2 % 65 45 ABG pCO2 66.5 H 65.4 H ABG pO2 116 H 87 Colin Test N/A Respiration Rate 14 18 O2 Delivery Device Adult Vent Vent Mode AC AC Tidal Volume 450 450 POC PEEP 5 5 Crit Call To/Read Back Yes Blood Gas Notified Whom raymundo Radiography Diagnostic Testing: Radiology Impression Chest X-Ray 04/19/22 11:23 IMPRESSION: Mild atelectatic changes in the left lung base. Electronically Signed: Tom Lei MD at 12:27 EDT , KUB X-Ray 04/19/22 11:42 IMPRESSION: Nasogastric tube with the tip in the region of the gastric fundus. Electronically Signed: Tom Lei MD at 12:35 EDT , Physical Exam Narrative Seen and examined T-max 101.1 Fahrenheit yesterday about 3 PM General: Sedated on propofol and fentanyl. HEENT: Atraumatic, PERRLA, EOMI, Normocephalic Oral: ET and OG tube. Neck: Supple, No JVD, Negative Carotid Bruits Lungs: On ventilator, assist control mode. Air entry bilateral equal. Cardiovascular: Sinus rhythm, normal S1, Normal S2, No murmurs Abdomen: Bowel Sounds sluggish, Soft, Non Tender, Non-Distended : Christie catheter, clear urine no renal angle tenderness. No suprapubic tenderness. Extremities: No edema, Capillary Refill Less than 3 Seconds Skin: Mottled bluish discoloration of feet and toes Musculoskeletal: No Tenderness to Palpation of Joints or Extremities Neurological: Sedated, complete neuro exam unobtainable. No facial droop or obvious cranial nerve palsy Psych/Mental Status: Sedated Assessment & Plan Assessment/Plan (1) Non-ST elevated myocardial infarction: (2) Community acquired pneumonia: (3) JOHNNY (acute kidney injury): (4) Acute respiratory failure with hypoxia and hypercapnia: (5) Sepsis with acute organ dysfunction without septic shock: PLAN: Plan This 61-year-old question gentleman admitted with acute combined respiratory failure, features suggestive of sepsis and non-STEMI 1. Acute combined hypoxic and hypercarbic respiratory failure probably due to pneumonia and COPD exacerbation with history of stage III gold COPD: Patient is being admitted in ICU. Pulmonary office visit note reviewed. Last PFT in April 2020 shows a reversible very severe mixed ventilatory defect with preserved DLCO. Compared to previous study significant reduction in lung volume by 38%. FEV1 35% predicted. No significant bronchodilator response. Patient is intubated. ABG reviewed. 7.20/66/116/5 on 65 % FiO2/450/5. ABG suggestive of acute respiratory acidosis as bicarb is normal at 26 on BMP. 04/20: Patient had fever T-max 101.1 Fahrenheit last evening. Statue Maker consult reviewed. Repeat ABG reviewed. pH 7.21/65/87/26 at 45% FiO2, 450/5. Vent setting optimized. Vent management as per civil engineering technician. Repeat ABG shows slight improvement in pH and PCO2. 2. Sepsis most likely due to pneumonia: The patient presented with sepsis most likely due to pneumonia with acute sepsis-related organ dysfunction as evidenced by acute combined respiratory failure, lactic acidosis and JOHNNY although creatinine is not more than 2.0. In ED, blood pressure was high 212/111, decreased due to propofol drip. Patient on broad-spectrum antibiotic IV Zosyn. 04/19: Repeat lactic acid normal. Urinary antigens are negative. Respiratory panel shows parainfluenza 4. Urinary antigens and rapid SARS-CoV-2 antigen negative. MRSA PCR negative. Blood culture respiratory culture pending. 3. Non-STEMI probably due to type II demand ischemia from sepsis: Troponins are high. EKG shows sinus tachycardia and Q waves in inferior leads. Cycle troponi n. Patient empirically on IV heparin drip and aspirin. Slip Box Changer consulted. 2D echo is ordered 04/20: Discussed with the plastic molder on 04/19. Plavix added. I also talked to the patient's son and in the evening of 04/19. Patient's son is orthopedic surgeon in [place]. Explained about the possible causes of high troponin due to type II demand ischemia. His son wanted PE to be ruled out although patient is empirically on IV heparin for non-STEMI. BNP 243, and CK are high. 2D echo pending. Slip Box Changer consult reviewed and appreciated. At present not candidate for invasive cardiac cath because of acute respiratory failure on vent and acute kidney injury. 4. JOHNNY probably prerenal or sepsis: Patient baseline creatinine runs around 1.0, last one 0.9 in July 2020. Admitted with BUN/creatinine 24/1.7. IV fluid normal saline. Patient has Christie catheter monitor intake and output. If kidney function does not improve, will need renal ultrasound and nephrology consult. 04/20: BUN/creatinine high. JOHNNY probably prerenal with possibility of ATN from sepsis. Kidneys and bladder ultrasound and nephrology consult requested. 5. Stage III severe COPD with asthma and continued chronic smoking: Bronchodilator, IV Solu-Medrol and antibiotics as mentioned above. Patient not adherent into pulmonary clinic visit. 6. Hypertension: Currently blood pressure is in normal range. 10/9: Blood pressure in systolic 100 probably due to sedatives. 7. Hyperglycemia: Glucose is 210. Accu-Chek before meals and at bedtime and cover with Humalog sliding scale. Patient does not have history of diabetes mellitus. A1c tomorrow AM. Glucose was 83 in July 2020 in [facility] VTE prophylaxis, high risk. On IV heparin drip. Total time of the visit including total time spent in counseling or coordination of care, (more than 50% of the total time, spent in obtaining medical informa tion from nurses and other ancillary care providers,explaining to the patient about labs, imaging, diagnosis and management of active complex medical conditions), discussion with consultants, review of labs and imaging is 45 minutes. Living will/advanced directive/end of life care: Patient does not have living will or advanced directive. After discussion of benefits/risks procedures involved with full code, DNR CC arrest and DNR CC, said continue full code Patient's does want artificial life support including intubation, tube feed, ventilator and/chest compression, central venous catheter, vasopressor and DC shock if needed Total time spent in [id number] encounter in discussion of advanced directive 16 minutes. Clinical Impression(s) from Imaging Studies Chest X-Ray 04/19/22 11:23 IMPRESSION: Mild atelectatic changes in the left lung base. KUB X-Ray 04/19/22 11:42 IMPRESSION: Nasogastric tube with the tip in the region of the gastric fundus. Microbiology Past 72 Hours 04/19/22 15:15 Mucosa - Nose Respiratory Panel (PCR) - Final Parainfluenza 4 04/19/22 15:15 Urine Catheter - Christie Legionella Antigen - Final 04/19/22 15:15 Urine Catheter - Christie Streptococcus pneumoniae Antigen (M - Final 04/19/22 12:00 Nasal Secretion SARS-CoV-2 Antigen (Rapid) - Final Charges/Coding Visit Charges Inpatient E&M: 99709 Subs Hosp L3
--- NOTE | 2022-04-20 12:49 | US_ITS ---
STUDY: RENAL ULTRASOUND - COMPLETE REASON FOR EXAM: Male, 61 years old. JOHNNY TECHNIQUE: Ultrasound evaluation of the kidneys was performed with real-time and static quarles-scale imaging. COMPARISON: None. FINDINGS: RIGHT KIDNEY: Normal location of the right kidney, which is normal in size. The right kidney measures 11.8 x 5.6 x 5.5 cm. There is a normal cortex of the right kidney. The renal cortex measures 0.5 cm. There is no right renal mass or cyst. There are no right renal calculi. There is no right hydronephrosis. DISTAL RIGHT URETER: There is non-visualization of the distal right ureter. There is no demonstrated right ureterovesical junction calculus. There is a visualized right ureteral jet. LEFT KIDNEY: Normal location of the left kidney, which is normal in size. The left kidney measures 11.8 x 5.0 x 6.3 cm. There is a normal cortex of the left kidney. The renal cortex measures 1.6 cm. There is no left renal mass or cyst. There are no left renal calculi. There is no left hydronephrosis. DISTAL LEFT URETER: There is non-visualization of the distal left ureter. There is no demonstrated left ureterovesical junction calculus. There is a visualized left ureteral jet. BLADDER: The bladder is collapsed around a catheter. There is a normal wall thickness of the distended urinary bladder. There is no demonstrated mass within the urinary bladder. There are no demonstrated bladder calculi. US/Kidney and Bladder IMPRESSION: Normal ultrasound of the kidneys. Electronically Signed: Oscar Contreras MD at 8:50 EDT ,
[2022-04-20] MEDS: Propofol 10MG/Ml 1,000 MG/100 ML Bottle 11.8 MG CONT INF ×2 (13:08→18:08)
[2022-04-20] MEDS: Lactated Ringers 1,000 ML 100 ML IV (13:37)
[2022-04-20] MEDS: Atorvastatin Calcium 80 MG Tablet PO (21:00)
[2022-04-21] VITALS (42 sets, daily range): BP systolic 93–171; BP diastolic 53–106; PULSE 60–103; RESP 10–25; TEMP 35.7–36.6; O2SAT 18–99
[2022-04-21] MEDS: HEPARIN/D5w 25,000 UNITS 25,000 UNITS/250 ML IV.SOLN. 15 UNITS CONT INF (00:06)
[2022-04-21] MEDS: Propofol 10MG/Ml 1,000 MG/100 ML Bottle 11.8 MG CONT INF (00:23)
[2022-04-21] MEDS: Ipratropium/Albuterol Sulfate 3 ML AMPUL.NEB INHALATION ×6 (03:10→23:14)
[2022-04-21 04:27] LABS: Absolute Lymphocyte Count 0.76 X10^3/uL (0.83-4.51); Basophil# 0.03 X10^3/uL; Basophil% 0.2 % (0-1); Hematocrit 42.3 % (40-54); Lymphocyte # 0.76 X10^3/ul (0.83-4.51); Lymphocyte % 5.2 % (19-41); Mean Corp Hgb Conc 30.7 g/dL (32-36); Mean Corpuscular Hgb 29.2 pg (27.0-32.0); Mean Corpuscular Volume 95.1 fL (80-94); Mean Platelet Vol. 12.7 fl (6.2-12.0); Monocyte% 4.8 % (0-10); NRBC Flagged by Analyzer 0 % (0-5); Neutrophil # 12.98 X10^3/uL (2.7-7.7); Neutrophil % 89.1 % (47-70); Platelet Count 265 K/mm3 (150-450); RBC Distribution Width CV 14.6 % (11.6-14.6); RBC Distribution Width SD 51.3 fl (35.1-43.9); Red Blood Count 4.45 M/mm3 (4.6-6.2); White Blood Count 14.6 K/mm3 (4.4-11.0)
[2022-04-21 04:32] LABS: Partial Thromboplast Time 37.2 Seconds (24.1-36.2)
[2022-04-21] MEDS: Heparin Injection (Vial) 5,000 UNIT/ML VIAL IV ×2 (04:55→11:11)
[2022-04-21 05:02] LABS: Protein, Urine (Random) 55.6 mg/dL (<11.9); Urine Sodium 11 mmol/L (Not Establ.)
[2022-04-21 06:01] LABS: Allen Test Negative; Base Excess 1 mmol/L (-2 to +2); Bicarbonate 27.4 mmol/L (22-26); Blood Gas Specimen Type ART; FI02 30; Mode CPAP/PS; O2 Delivery Device Adult Vent; PEEP 5; PO2 80 mmHG (75-100); PS 5; SITE L Radial; SO2 94 % (95-99); Total Carbon Dioxide 29 mmol/L; pCO2 55.9 mmHg (35-45)
--- NOTE | 2022-04-21 06:20 | PCM.PN.INT ---
Assessment & Plan Assessment/Plan (1) Sepsis with acute organ dysfunction without septic shock: PLAN: Plan RECOMMENDATIONS: 1. Proceed with a trial of extubation directly to BiPAP this morning. 2. We will plan to extubate the patient directly to BiPAP for several hours. 3. Continue to wean supplemental oxygen to maintain saturations at or above 90%. 4. Continue empiric antimicrobials. 5. Continue scheduled bronchodilators and IV steroids. 6. Continue heparin infusion and await echocardiogram. 7. Encourage incentive spirometer use and mobilize patient as tolerated. IMPRESSIONS: 1. Acute combined respiratory failure The patient presented with an acute COPD exacerbation likely precipitated by combined parainfluenza infection and bacterial pneumonia. The patient has improved clinically with invasive mechanical ventilatory support along with antimicrobials, bronchodilators and steroids. The patient has passed his breathing trial and will be extubated this morning, directly to BiPAP for several hours, prior to transitioning to nasal cannula oxygen. Continue to wean supplemental oxygen to maintain saturations at or above 90%. Continue aggressive bronchopulmonary hygiene and mobilize patient as tolerated. 2. Sepsis The patient presented with sepsis due to pneumonia with acute sepsis related organ dysfunction as evidenced by acute respiratory failure requiring invasive mechanical ventilatory support, acute kidney injury and lactic acidemia. The patient did receive supplemental IV fluid hydration and will be maintained on empiric antimicrobials. The patient remains hemodynamically stable at the present time. 3. Troponin elevation Likely secondary to demand ischemia in the setting of numbers 1 and 2. Echocardiogram is currently pending. Cardiology is following to assist with medical management. 4. Acute kidney injury Improving. Most likely prerenal in etiology with possible ischemic ATN in the setting of #1. Renal ultrasound is pending. Nephrology is following to assist with medical management. 5. Hypertension/hyperlipidemia Complicates care, management, recovery and prognosis. Continue home statin. Physical therapy to evaluate the patient. TIME: 32 minutes of critical care time, independent of procedures, was spent addressing the patient's acute combined respiratory failure, sepsis, troponin elevation, acute kidney injury, review of all data and collaboration with the care team. Subjective Subjective The patient was seen and examined at the bedside this morning. Events from the last 24 hours have been reviewed. The patient is currently afebrile, hemodynamically stable and maintaining appropriate oxygen saturations with an FiO2 requirement of 30%. The patient is currently doing well on his spontaneous breathing trial. He is alert and appropriately interactive. The patient's secretions from his endotracheal tube have improved over the last 24 hours. The patient is currently documented to be overall net +5.6 L for the hospitalization. Chemistry profile this morning was notable for a sodium of 135, potassium of 6.4 and creatinine of 1.7. Objective Data Objective Data The patient's most recent lab work, culture data and imaging studies have all been personally reviewed. Respiratory viral panel was positive for parainfluenza. Preliminary sputum culture is demonstrating growth of possible haemophilus. Vital Signs: Vital Signs Temp Pulse Resp BP Pulse Ox O2 Del Method O2 Flow Rate 96.8 F L 81 17 163/106 H 94 Mechanical Ventilator 15 04/21/22 06:00 04/21/22 06:00 04/21/22 06:00 04/21/22 06:00 04/21/22 06:00 04/21/22 06:00 04/19/22 15:00 FiO2 30 04/21/22 06:00 Oxygen Flow Rate (L/min) 15 Oxygen Delivery Method Mechanical Ventilator Weight: 223 lb 15.834 oz Body Mass Index (BMI) 28.6 Intake & Output: Intake and Output for Last 24 Hours 04/19/22 04/20/22 04/21/22 23:59 23:59 23:59 Intake Total 2419.30 / 2467.80 2700.94 / 2842.74 1888.17 / 1888.17 Output Total 260 / 310 620 / 770 475 / 475 Balance 2159.30 / 2157.80 2080.94 / 2072.74 1413.17 / 1413.17 Lab / Micro Data Attestation: I reviewed the patient's lab results. Result Diagrams: 04/21/22 04:10 04/21/22 05:00 Labs: Laboratory Results - last 24 hr 04/20/22 08:20: APTT 61.7 H 04/21/22 04:10: WBC 14.6 H, RBC 4.45 L, Hgb 13.0, Hct 42.3, MCV 95.1 H, MCH 29.2, MCHC 30.7 L, RDW Std Deviation 51.3 H, RDW Coeff of Teressa 14.6, Plt Count 265, MPV 12.7 H, Immature Gran % (Auto) 0.700, Neut % (Auto) 89.1 H, Lymph % (Auto) 5.2 L, [place] % (Auto) 4.8, Eos % (Auto) 0.0, Baso % (Auto) 0.2, Absolute Neuts (auto) 13.0 H, Absolute Lymphs (auto) 0.76 L, Nucleated RBC % 0 04/21/22 04:10: Sodium Cancelled, Potassium Cancelled, Chloride Cancelled, Carbon Dioxide Cancelled, Anion Gap Cancelled, BUN Cancelled, Creatinine Cancelled, Estim Creat Clear Calc Cancelled, Est GFR (MDRD) Af Amer Cancelled, Est GFR (MDRD) Non-Af Cancelled, BUN/Creatinine Ratio Cancelled, Glucose Cancelled, Calcium Cancelled, Total Bilirubin Cancelled, AST Cancelled, ALT Cancelled, Alkaline Phosphatase Cancelled, Total Protein Cancelled, Albumin Cancelled, Globulin Cancelled, Albumin/Globulin Ratio Cancelled 04/21/22 04:10: APTT 37.2 H 04/21/22 04:20: U Random Total Protein 55.6 H, Ur Random Sodium 11, Urine Creatinine 148.00 04/21/22 05:00: Sodium 135 L, Potassium 6.4 H*, Chloride 102, Carbon Dioxide 25.0, Anion Gap 8, BUN 58 H, Creatinine 1.77 H, Estim Creat Clear Calc 48.71, Est GFR (MDRD) Af Amer 51 L, Est GFR (MDRD) Non-Af 42 L, BUN/Creatinine Ratio 32.8 H, Glucose 202 H, Calcium 8.5, Total Bilirubin 0.50, AST 106 H, ALT 73 H, Alkaline Phosphatase 87, Total Protein 6.8, Albumin 2.2 L, Globulin 4.6 H, Albumin/Globulin Ratio 0.5 L Micro: Microbiology 04/19/22 13:30 Sputum, Induced/Lukens Gram Stain - Final 04/19/22 13:30 Sputum, Induced/Lukens Respiratory Culture - Preliminary GNR Possible Haemophilus sp. 04/19/22 12:00 Urine Catheter - Christie Urine Culture - Preliminary Culture exhibits no growth. 04/19/22 15:15 Mucosa - Nose Respiratory Panel (PCR) - Final Parainfluenza 4 04/19/22 15:15 Urine Catheter - Christie Legionella Antigen - Final 04/19/22 15:15 Urine Catheter - Christie Streptococcus pneumoniae Antigen (M - Final 04/19/22 12:00 Nasal Secretion SARS-CoV-2 Antigen (Rapid) - Final ABG Data ABG results: ABG 04/20/22 04/21/22 07:37 05:55 Specimen Type ART ART Sample Site L Radial L Radial pH 7.24 L 7.30 L Bicarbonate Actual 26.7 H 27.4 H Total CO2 29 29 Base Excess -1 1 O2 Saturation 94 L 94 L O2 % 45 30 ABG pCO2 62.1 H 55.9 H ABG pO2 86 80 Colin Test Positive Negative Respiration Rate 14 O2 Delivery Device Adult Vent Adult Vent Vent Mode AC CPAP/PS Tidal Volume 500 POC PEEP 5 5 POC Pressure Suppt 5 Radiography Diagnostic Testing: Radiology Impression Chest X-Ray 04/20/22 07:29 IMPRESSION: No interval change Electronically Signed: Niall Glaser MD at 8:29 EDT , Rhythm Strip Rhythm Strip: Sinus Rhythm Physical Exam Const alert and no apparent distress General Appearance: cooperative, intubated and patient mechanically ventilated HEENT normocephalic and head/scalp atraumatic Mouth: endotracheal tube in place and OG tube in place Eyes PERRL and EOMs intact bilaterally Neck supple General: trachea midline Chest inspection of chest normal Resp Effort and Inspection: prolonged expiratory phase Auscultation: wheezes and diminished lung sounds; Negative for rales or rhonchi Cardio regular rate and regular rhythm GI normal to inspection, nondistended, normoactive bowel sounds Extremity no clubbing, cyanosis or edema Skin no rashes or lesions noted Neuro Neuro Narrative: Alert and able to follow simple commands. Charges/Coding Procedures Hospitalists Procedures: [id number] Critial Care 1st Hr
[2022-04-21] MEDS: 0.9% Saline Lock 10 ML Syringe IV ×2 (06:58→20:59)
[2022-04-21] MEDS: Albuterol 2.5 MG/3 ML VIAL.NEB. INHALATION ×2 (07:15→16:09)
[2022-04-21 07:27] LABS: Hemoglobin A1c 6.1 % (3.8-5.6)
--- NOTE | 2022-04-21 07:53 | PN.HOSP_ITS ---
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 Patient is still wheezing. BP is high. On FiO2 30% BiPAP. Afebrile. Objective Data Objective Data Vital Signs: Vital Signs Temp Pulse Resp BP Pulse Ox O2 Del Method O2 Flow Rate 96.6 F L 98 19 H 171/97 H 95 Bi-pap 15 04/21/22 07:00 04/21/22 07:15 04/21/22 07:15 04/21/22 07:00 04/21/22 07:15 04/21/22 07:15 04/19/22 15:00 FiO2 30 04/21/22 07:15 Oxygen Flow Rate (L/min) 15 Oxygen Delivery Method Bi-pap Weight: 223 lb 15.834 oz Body Mass Index (BMI) 28.6 Intake & Output: Intake and Output for Last 24 Hours 04/19/22 04/20/22 04/21/22 23:59 23:59 23:59 Intake Total 2419.30 / 2467.80 2700.94 / 2842.74 1888.17 / 1888.17 Output Total 260 / 310 620 / 770 475 / 475 Balance 2159.30 / 2157.80 2080.94 / 2072.74 1413.17 / 1413.17 Lab / Micro Data Result Diagrams: 04/21/22 04:10 04/21/22 05:00 Labs: Laboratory Results - last 24 hr 04/20/22 04:10: Hemoglobin A1c 6.1 H 04/20/22 08:20: APTT 61.7 H 04/21/22 04:10: WBC 14.6 H, RBC 4.45 L, Hgb 13.0, Hct 42.3, MCV 95.1 H, MCH 29.2, MCHC 30.7 L, RDW Std Deviation 51.3 H, RDW Coeff of Teressa 14.6, Plt Count 265, MPV 12.7 H, Immature Gran % (Auto) 0.700, Neut % (Auto) 89.1 H, Lymph % (Auto) 5.2 L, [place] % (Auto) 4.8, Eos % (Auto) 0.0, Baso % (Auto) 0.2, Absolute Neuts (auto) 13.0 H, Absolute Lymphs (auto) 0.76 L, Nucleated RBC % 0 04/21/22 04:10: APTT 37.2 H 04/21/22 04:20: U Random Total Protein 55.6 H, Ur Random Sodium 11, Urine Creatinine 148.00 04/21/22 05:00: Sodium 135 L, Potassium 6.4 H*, Chloride 102, Carbon Dioxide 25.0, Anion Gap 8, BUN 58 H, Creatinine 1.77 H, Estim Creat Clear Calc 48.71, Est GFR (MDRD) Af Amer 51 L, Est GFR (MDRD) Non-Af 42 L, BUN/Creatinine Ratio 32.8 H, Glucose 202 H, Calcium 8.5, Total Bilirubin 0.50, AST 106 H, ALT 73 H, Alkaline Phosphatase 87, Total Protein 6.8, Albumin 2.2 L, Globulin 4.6 H, Albumin/Globulin Ratio 0.5 L Micro: Microbiology 04/19/22 13:30 Sputum, Induced/Lukens Gram Stain - Final 04/19/22 13:30 Sputum, Induced/Lukens Respiratory Culture - Preliminary GNR Possible Haemophilus sp. 04/19/22 12:00 Urine Catheter - Christie Urine Culture - Preliminary Culture exhibits no growth. 04/19/22 15:15 Mucosa - Nose Respiratory Panel (PCR) - Final Parainfluenza 4 04/19/22 15:15 Urine Catheter - Christie Legionella Antigen - Final 04/19/22 15:15 Urine Catheter - Christie Streptococcus pneumoniae Antigen (M - Final 04/19/22 12:00 Nasal Secretion SARS-CoV-2 Antigen (Rapid) - Final ABG Data ABG results: ABG 04/21/22 05:55 Specimen Type ART Sample Site L Radial pH 7.30 L Bicarbonate Actual 27.4 H Total CO2 29 Base Excess 1 O2 Saturation 94 L O2 % 30 ABG pCO2 55.9 H ABG pO2 80 Colin Test Negative O2 Delivery Device Adult Vent Vent Mode CPAP/PS POC PEEP 5 POC Pressure Suppt 5 Radiography Diagnostic Testing: Radiology Impression Chest X-Ray 04/20/22 07:29 IMPRESSION: No interval change Electronically Signed: Niall Glaser MD at 8:29 EDT , Rhythm Strip Rhythm Strip: Sinus Rhythm Physical Exam Narrative Seen and examined General: Extubated, on BiPAP. Mild lethargy HEENT: Atraumatic, PERRLA, EOMI, Normocephalic Oral: On BiPAP mask Neck: Supple, No JVD, Negative Carotid Bruits Lungs: Air entry diminished bilaterally. Bilateral wheezing. Hypoxia Cardiovascular: Sinus rhythm, normal S1, Normal S2, No murmurs Abdomen: Bowel Sounds sluggish, Soft, Non Tender, Non-Distended : Christie catheter, clear urine no renal angle tenderness. No suprapubic tenderness. Extremities: No edema, Capillary Refill Less than 3 Seconds Skin: Mottled bluish discoloration of feet and toes Musculoskeletal: No Tenderness to Palpation of Joints or Extremities Neurological: Awake, no acute focal neurological finding/deficit. Cranial nerves, 2-12 intact Psych/Mental Status: Awake. Assessment & Plan Assessment/Plan (1) Non-ST elevated myocardial infarction: (2) Community acquired pneumonia: (3) JOHNNY (acute kidney injury): (4) Acute respiratory failure with hypoxia and hypercapnia: (5) Sepsis with acute organ dysfunction without septic shock: PLAN: Plan This 61-year-old question gentleman admitted with acute combined respiratory failure, features suggestive of sepsis and non-STEMI 1. Acute combined hypoxic and hypercarbic respiratory failure probably due to pneumonia and COPD exacerbation with history of stage III gold COPD: Patient is being admitted in ICU. Pulmonary office visit note reviewed. Last PFT in April 2020 shows a reversible very severe mixed ventilatory defect with preserved DLCO. Compared to previous study significant reduction in lung volume by 38%. FEV1 35% predicted. No significant bronchodilator response. Patient is intubated. ABG reviewed. 7.20/66/116/5 on 65 % FiO2/450/5. ABG suggestive of acute respiratory acidosis as bicarb is normal at 26 on BMP. 04/20: Patient had fever T-max 101.1 Fahrenheit last evening. Superintendent Measurement c nghia reviewed. Repeat ABG reviewed. pH 7.21/65/87/26 at 45% FiO2, 450/5. Vent setting optimized. Vent management as per clerk of court. Repeat ABG shows slight improvement in pH and PCO2. 04/21: Patient extubated on BiPAP 30% FiO2. Mild respiratory distress. 2. Sepsis most likely due to pneumonia: The patient presented with sepsis most likely due to pneumonia with acute sepsis-related organ dysfunction as evidenced by acute combined respiratory failure, lactic acidosis and JOHNNY although c reatinine is not more than 2.0. In ED, blood pressure was high 212/111, decreased due to propofol drip. Patient on broad-spectrum antibiotic IV Zosyn. 04/19: Repeat lactic acid normal. Urinary antigens are negative. Respiratory panel shows parainfluenza 4. Urinary antigens and rapid SARS-CoV-2 antigen negative. MRSA PCR negative. Blood culture respiratory culture pending. 04/21: Sputum culture preliminary shows GNR, possible haemophilus influenza. Continue antibiotic. 3. Non-STEMI probably due to type II demand ischemia from sepsis: Troponins are high. EKG shows sinus tachycardia and Q waves in inferior leads. Cycle troponin. Patient empirically on IV heparin drip and aspirin. Storage Battery Charger consulted. 2D echo is ordered 04/20: Discussed with the staff appraiser on 04/19. Plavix added. I also talked to the patient's son and in the evening of 04/19. Patient's son is orthopedic surgeon in [place]. Explained about the possible causes of high troponin due to type II demand ischemia. His son wanted PE to be ruled out although patient is empirically on IV heparin for non-STEMI. BNP 243, and CK are high. 2D echo pending. Storage Battery Charger consult reviewed and appreciated. At present not candidate for invasive cardiac cath because of acute respiratory failure on vent and acute kidney injury. 04/21: Plan for echo today. 4. JOHNNY probably prerenal or sepsis: Patient baseline creatinine runs around 1.0, last one 0.9 in July 2020. Admitted with BUN/creatinine 24/1.7. IV fluid normal saline. Patient has Christie catheter monitor intake and output. If kidney function does not improve, will need renal ultrasound and nephrology consult. 04/20: BUN/creatinine high. JOHNNY probably prerenal with possibility of ATN from sepsis. Kidneys and bladder ultrasound and nephrology consult requested. 04/21: Creatinine downtrending 1.77.Hyperkalemia, K6.4, bicarb and anion gap n ormal. Patient had about 6 800 mL urine output. 5. Stage III severe COPD with asthma and continued chronic smoking: Bronchodilator, IV Solu-Medrol and antibiotics as mentioned above. Patient not adherent into pulmonary clinic visit. 6. Hypertension: Currently blood pressure is in normal range. 04/20: Blood pressure in systolic 100 probably due to sedatives. 7. Hyperglycemia: Glucose is 210. Accu-Chek before meals and at bedtime and cover with Humalog sliding scale. Patient does not have history of diabetes mellitus. A1c tomorrow AM. Glucose was 83 in July 2020 in [facility] VTE prophylaxis, high risk. On IV heparin drip. Microbiology Past 72 Hours 04/19/22 13:30 Sputum, Induced/Lukens Gram Stain - Final 04/19/22 13:30 Sputum, Induced/Lukens Respiratory Culture - Preliminary GNR Possible Haemophilus sp. 04/19/22 12:00 Urine Catheter - Christie Urine Culture - Preliminary Culture exhibits no growth. 04/19/22 15:15 Mucosa - Nose Respiratory Panel (PCR) - Final Parainfluenza 4 04/19/22 15:15 Urine Catheter - Christie Legionella Antigen - Final 04/19/22 15:15 Urine Catheter - Christie Streptococcus pneumoniae Antigen (M - Final 04/19/22 12:00 Nasal Secretion SARS-CoV-2 Antigen (Rapid) - Final Laboratory Results 04/20/22 04:10: Hemoglobin A1c 6.1 H 04/20/22 08:20: APTT 61.7 H 04/21/22 04:10: WBC 14.6 H, RBC 4.45 L, Hgb 13.0, Hct 42.3, MCV 95.1 H, MCH 29.2, MCHC 30.7 L, RDW Std Deviation 51.3 H, RDW Coeff of Teressa 14.6, Plt Count 265, MPV 12.7 H, Immature Gran % (Auto) 0.700, Neut % (Auto) 89.1 H, Lymph % (Auto) 5.2 L, [place] % (Auto) 4.8, Eos % (Auto) 0.0, Baso % (Auto) 0.2, Absolute Neuts (auto) 13.0 H, Absolute Lymphs (auto) 0.76 L, Nucleated RBC % 0 04/21/22 04:10: APTT 37.2 H 04/21/22 04:20: U Random Total Protein 55.6 H, Ur Random Sodium 11, Urine Creatinine 148.00 04/21/22 05:00: Sodium 135 L, Potassium 6.4 H*, Chloride 102, Carbon Dioxide 25.0, Anion Gap 8, BUN 58 H, Creatinine 1.77 H, Estim Creat Clear Calc 48.71, Est GFR (MDRD) Af Amer 51 L, Est GFR (MDRD) Non-Af 42 L, BUN/Creatinine Ratio 32.8 H, Glucose 202 H, Calcium 8.5, Total Bilirubin 0.50, AST 106 H, ALT 73 H, Alkaline Phosphatase 87, Total Protein 6.8, Albumin 2.2 L, Globulin 4.6 H, Albumin/Globulin Ratio 0.5 L 04/21/22 05:55: Specimen Type ART, Sample Site L Radial, pH 7.30 L, Bicarbonate Actual 27.4 H, Total CO2 29, Base Excess 1, O2 Saturation 94 L, O2 % 30, ABG pCO2 55.9 H, ABG pO2 80, Colin Test Negative, O2 Delivery Device Adult Vent, Vent Mode CPAP/PS, POC PEEP 5, POC Pressure Suppt 5 Total time of the visit including total time spent in counseling or coordination of care, (more than 50% of the total time, spent in obtaining medical informatio n from nurses and other ancillary care providers,explaining to the patient about labs, imaging, diagnosis and management of active complex medical conditions), discussion with consultants, review of labs and imaging is 45 minutes. Living will/advanced directive/end of life care: Patient does not have living will or advanced directive. After discussion of benefits/risks procedures involved with full code, DNR CC arrest and DNR CC, said continue full code Patient's does want artificial life support including intubation, tube feed, ventilator and/chest compression, central venous catheter, vasopressor and DC shock if needed Total time spent in [id number] encounter in discussion of advanced directive 16 minutes. Clinical Impression(s) from Imaging Studies Chest X-Ray 04/19/22 11:23 IMPRESSION: Mild atelectatic changes in the left lung base. Charges/Coding Visit Charges Inpatient E&M: 22088 Subs Hosp L3
[2022-04-21 08:59] LABS: Troponin-I HS 5638 pg/mL (3.0-78.0)
--- NOTE | 2022-04-21 09:03 | PN.CARD_ITS ---
Subjective Subjective Remains on ventilator. Objective Data Vital Signs: Vital Signs Temp Pulse Resp BP Pulse Ox O2 Del Method O2 Flow Rate 96.3 F L 80 23 H 128/85 H 94 Bi-pap 15 04/21/22 08:00 04/21/22 09:00 04/21/22 09:00 04/21/22 09:00 04/21/22 09:00 04/21/22 09:00 04/19/22 15:00 FiO2 30 04/21/22 09:00 Oxygen Flow Rate (L/min) 15 Oxygen Delivery Method Bi-pap Weight: 223 lb 15.834 oz Body Mass Index (BMI) 28.6 Intake & Output: Intake and Output for Last 24 Hours 04/19/22 04/20/22 04/21/22 23:59 23:59 23:59 Intake Total 2419.30 / 2467.80 2700.94 / 2842.74 1888.17 / 1888.17 Output Total 260 / 310 620 / 770 475 / 475 Balance 2159.30 / 2157.80 2080.94 / 2072.74 1413.17 / 1413.17 Lab / Micro Data Result Diagrams: 04/21/22 04:10 04/21/22 05:00 Labs: Laboratory Results - last 24 hr 04/20/22 04:10: Hemoglobin A1c 6.1 H 04/20/22 08:20: APTT 61.7 H 04/21/22 04:10: WBC 14.6 H, RBC 4.45 L, Hgb 13.0, Hct 42.3, MCV 95.1 H, MCH 29.2, MCHC 30.7 L, RDW Std Deviation 51.3 H, RDW Coeff of Teressa 14.6, Plt Count 265, MPV 12.7 H, Immature Gran % (Auto) 0.700, Neut % (Auto) 89.1 H, Lymph % (Auto) 5.2 L, [place] % (Auto) 4.8, Eos % (Auto) 0.0, Baso % (Auto) 0.2, Absolute Neuts (auto) 13.0 H, Absolute Lymphs (auto) 0.76 L, Nucleated RBC % 0 04/21/22 04:10: Sodium Cancelled, Potassium Cancelled, Chloride Cancelled, Carbon Dioxide Cancelled, Anion Gap Cancelled, BUN Cancelled, Creatinine Cancelled, Estim Creat Clear Calc Cancelled, Est GFR (MDRD) Af Amer Cancelled, Est GFR (MDRD) Non-Af Cancelled, BUN/Creatinine Ratio Cancelled, Glucose Cancelled, Calcium Cancelled, Total Bilirubin Cancelled, AST Cancelled, ALT Cancelled, Alkaline Phosphatase Cancelled, Total Protein Cancelled, Albumin Cancelled, Globulin Cancelled, Albumin/Globulin Ratio Cancelled 04/21/22 04:10: APTT 37.2 H 04/21/22 04:20: U Random Total Protein 55.6 H, Ur Random Sodium 11, Urine Creatinine 148.00 04/21/22 05:00: Sodium 135 L, Potassium 6.4 H*, Chloride 102, Carbon Dioxide 25.0, Anion Gap 8, BUN 58 H, Creatinine 1.77 H, Estim Creat Clear Calc 48.71, Est GFR (MDRD) Af Amer 51 L, Est GFR (MDRD) Non-Af 42 L, BUN/Creatinine Ratio 32.8 H, Glucose 202 H, Calcium 8.5, Total Bilirubin 0.50, AST 106 H, ALT 73 H, Alkaline Phosphatase 87, Total Protein 6.8, Albumin 2.2 L, Globulin 4.6 H, Albumin/Globulin Ratio 0.5 L 04/21/22 05:00: Troponin I High Sens Cancelled 04/21/22 08:30: Troponin I High Sens 5638 H* Micro: Microbiology 04/19/22 12:00 Urine Catheter - Christie Urine Culture - Final Culture exhibits no growth. 04/19/22 13:30 Sputum, Induced/Lukens Gram Stain - Final 04/19/22 13:30 Sputum, Induced/Lukens Respiratory Culture - Preliminary GNR Possible Haemophilus sp. 04/19/22 15:15 Mucosa - Nose Respiratory Panel (PCR) - Final Parainfluenza 4 ABG Data ABG results: ABG 04/21/22 05:55 Specimen Type ART Sample Site L Radial pH 7.30 L Bicarbonate Actual 27.4 H Total CO2 29 Base Excess 1 O2 Saturation 94 L O2 % 30 ABG pCO2 55.9 H ABG pO2 80 Colin Test Negative O2 Delivery Device Adult Vent Vent Mode CPAP/PS POC PEEP 5 POC Pressure Suppt 5 Rhythm Strip Rhythm Strip: Sinus Rhythm Cardiology Labs/Tests 04/20/22 04:10: Hemoglobin A1c 6.1 H 04/20/22 08:20: APTT 61.7 H 04/21/22 04:10: WBC 14.6 H, RBC 4.45 L, Hgb 13.0, Hct 42.3, MCV 95.1 H, MCH 29.2, MCHC 30.7 L, Plt Count 265, MPV 12.7 H, Immature Gran % (Auto) 0.700, Neut % (Auto) 89.1 H, Lymph % (Auto) 5.2 L, [place] % (Auto) 4.8, Eos % (Auto) 0.0, Baso % (Auto) 0.2, Absolute Neuts (auto) 13.0 H, Nucleated RBC % 0 04/21/22 04:10: Sodium Cancelled, Potassium Cancelled, Chloride Cancelled, Carbon Dioxide Cancelled, Anion Gap Cancelled, BUN Cancelled, Creatinine Cancelled, Est GFR (MDRD) Af Amer Cancelled, Est GFR (MDRD) Non-Af Cancelled, BUN/Creatinine Ratio Cancelled, Glucose Cancelled, Calcium Cancelled, Total Vincenzo irubin Cancelled 04/21/22 04:10: APTT 37.2 H 04/21/22 05:00: Sodium 135 L, Potassium 6.4 H*, Chloride 102, Carbon Dioxide 25.0, Anion Gap 8, BUN 58 H, Creatinine 1.77 H, Est GFR (MDRD) Af Amer 51 L, Est GFR (MDRD) Non-Af 42 L, BUN/Creatinine Ratio 32.8 H, Glucose 202 H, Calcium 8.5, Total Bilirubin 0.50 04/21/22 05:55: pH 7.30 L, Bicarbonate Actual 27.4 H, Base Excess 1, O2 Saturation 94 L, ABG pCO2 55.9 H, ABG pO2 80, Colin Test Negative Rhythm: EKG: ECHO: Stress Test: Cardiac Cath: PCI: CT Surgery: Holter monitor: EPS: PPM: CXR: Chest CT Scan: Radiography Diagnostic Testing: Radiology Impression Renal Ultrasound 04/20/22 12:49 IMPRESSION: Normal ultrasound of the kidneys. Electronically Signed: Oscar Cnotreras MD at 8:50 EDT Reading Location ID and State: [facility] / [place] , Service support , Physical Exam Narrative Sedated on vent Assessment & Plan Assessment/Plan (1) Non-ST elevated myocardial infarction: PLAN: Most likely type II. Patient however has risk factors for coronary artery disease. He will need further work-up for coronary artery disease once his other issues including respiratory failure and acute renal failure resolved. Agree with starting aspirin and clopidogrel. Continue heparin for now. Check 2D echocardiogram with Doppler. (2) Sepsis with acute organ dysfunction without septic shock: PLAN: As per critical care. (3) JOHNNY (acute kidney injury): PLAN: Secondary to #2 above. Monitor. Creatinine improved. (4) Tobacco abuse: (5) COPD with asthma: PLAN: As per pulmonology. (6) HTN (hypertension): PLAN: Presently blood pressure on the lower side secondary to sepsis. (7) Hyperlipidemia: PLAN: On atorvastatin.
--- NOTE | 2022-04-21 09:45 | CASEMGMT ---
RN CM Face to Face with patient for initial transition planning/care coordination assessment. RN CM introduced self and role at [facility]. Patient lying in bed, alert and oriented, and daughter at bedside. Patient willing to participate in assessment and is able to answer all questions appropriately. Care providers, pharmacy, and demographics verified. Patient wishes to discharge home, will monitor for HHC and home oxygen pending course of treatment and progress with therapy. Patient states he has no further needs or concerns at this time. CM to follow for discharge planning needs that may arise. 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 Patient is independent and able to ambulate stairs. Transportation: self, DME/HHC: Patient has raised toilets and crutches at home. No previous HHC or SNF. Disposition Plan: Patient to discharge home with family support and follow-up plans in place. Will monitor for HHC and home oxgyen at discharge. Luanne LARRYN, RN, CM
[2022-04-21 09:47] LABS: ALB/GLOB Ratio 0.6 RATIO (0.9-2.4); Albumin, Serum 2.4 g/dL (3.2-5.0); BUN 57 mg/dL (7-18); BUN/Creat Ratio 35.8 RATIO (10-20); Creatinine, Serum 1.59 mg/dL (0.70-1.30); EST Glomerular Filtration Rate 47 mL/min (>60); Est Glom Filt Rate - Afr Amer 57 mL/min (>60); Estimated Creatinine Clearance 54.23 ml/min; Globulin 4.3 g/dL (2.2-4.2); Glucose 204 mg/dL (74-106); Protein, Total 6.7 g/dL (6.4-8.2)
[2022-04-21 09:48] LABS: AST(SGOT) 66 U/L (15-37); Alanine Aminotransfer ALT/SGPT 72 U/L (16-61); Alkaline Phosphatase 93 U/L (45-117); Anion Gap 9 (5-15); Calcium,Total 9.2 mg/dL (8.5-10.1); Chloride 103 mmol/L (98-107); Sodium Level 140 mmol/L (136-145)
[2022-04-21] MEDS: Clopidogrel Bisulfate 75 MG Tablet PO (10:49)
[2022-04-21] MEDS: Aspirin E.C. 81 MG Tablet PO (10:49)
[2022-04-21 11:02] LABS: Partial Thromboplast Time 51.5 Seconds (24.1-36.2)
[2022-04-21] MEDS: CHLORHEXIDINE GLUC 2% CLOTH 1 EACH TOWELETTE TOPICAL (13:51)
--- NOTE | 2022-04-21 15:01 | PN.RENAL_ITS ---
Subjective Subjective Following for JOHNNY Patient sitting up in chair. Denies any complaints. Extubated this morning. Objective Data Objective Data Vital Signs: Vital Signs Temp Pulse Resp BP Pulse Ox O2 Del Method O2 Flow Rate 96.6 F L 71 18 125/71 H 97 Nasal Cannula 2 04/21/22 13:00 04/21/22 14:05 04/21/22 14:05 04/21/22 14:00 04/21/22 14:05 04/21/22 14:05 04/21/22 14:24 FiO2 30 04/21/22 12:00 Oxygen Flow Rate (L/min) 2 Oxygen Delivery Method Nasal Cannula Weight: 101.6 kg Body Mass Index (BMI) 28.6 Intake & Output: Intake and Output for Last 24 Hours 04/19/22 04/20/22 04/21/22 23:59 23:59 23:59 Intake Total 2419.30 / 2467.80 2700.94 / 2842.74 2045.55 / 2045.55 Output Total 260 / 310 620 / 770 775 / 775 Balance 2159.30 / 2157.80 2080.94 / 2072.74 1270.55 / 1270.55 Lab / Micro Data Result Diagrams: 04/21/22 04:10 04/21/22 08:30 Labs: Laboratory Results - last 24 hr 04/20/22 04:10: Hemoglobin A1c 6.1 H 04/21/22 04:10: WBC 14.6 H, RBC 4.45 L, Hgb 13.0, Hct 42.3, MCV 95.1 H, MCH 29.2, MCHC 30.7 L, RDW Std Deviation 51.3 H, RDW Coeff of Teressa 14.6, Plt Count 265, MPV 12.7 H, Immature Gran % (Auto) 0.700, Neut % (Auto) 89.1 H, Lymph % (Auto) 5.2 L, [place] % (Auto) 4.8, Eos % (Auto) 0.0, Baso % (Auto) 0.2, Absolute Neuts (auto) 13.0 H, Absolute Lymphs (auto) 0.76 L, Nucleated RBC % 0 04/21/22 04:10: Sodium Cancelled, Potassium Cancelled, Chloride Cancelled, Carbon Dioxide Cancelled, Anion Gap Cancelled, BUN Cancelled, Creatinine Cancelled, Estim Creat Clear Calc Cancelled, Est GFR (MDRD) Af Amer Cancelled, Est GFR (MDRD) Non-Af Cancelled, BUN/Creatinine Ratio Cancelled, Glucose Cancelled, Calcium Cancelled, Total Bilirubin Cancelled, AST Cancelled, ALT Cancelled, Alkaline Phosphatase Cancelled, Total Protein Cancelled, Albumin Cancelled, Globulin Cancelled, Albumin/Globulin Ratio Cancelled 04/21/22 04:10: APTT 37.2 H 04/21/22 04:20: U Random Total Protein 55.6 H, Ur Random Sodium 11, Urine Creatinine 148.00 04/21/22 05:00: Sodium Cancelled, Potassium Cancelled, Chloride Cancelled, Carbon Dioxide Cancelled, Anion Gap Cancelled, BUN Cancelled, Creatinine Cancelled, Estim Creat Clear Calc Cancelled, Est GFR (MDRD) Af Amer Cancelled, Est GFR (MDRD) Non-Af Cancelled, BUN/Creatinine Ratio Cancelled, Glucose Cancelled, Calcium Cancelled, Total Bilirubin Cancelled, AST Cancelled, ALT Cancelled, Alkaline Phosphatase Cancelled, Total Protein Cancelled, Albumin Cancelled, Globulin Cancelled, Albumin/Globulin Ratio Cancelled 04/21/22 05:00: Troponin I High Sens Cancelled 04/21/22 08:30: Troponin I High Sens 5638 H* 04/21/22 08:30: Sodium 140, Potassium 4.0, Chloride 103, Carbon Dioxide 28.0, Anion Gap 9, BUN 57 H, Creatinine 1.59 H, Estim Creat Clear Calc 54.23, Est GFR (MDRD) Af Amer 57 L, Est GFR (MDRD) Non-Af 47 L, BUN/Creatinine Ratio 35.8 H, Glucose 204 H, Calcium 9.2, Total Bilirubin 0.30, AST 66 H, ALT 72 H, Alkaline Phosphatase 93, Total Protein 6.7, Albumin 2.4 L, Globulin 4.3 H, Albumin/Globulin Ratio 0.6 L 04/21/22 10:40: APTT 51.5 H Micro: Microbiology 04/19/22 13:30 Sputum, Induced/Lukens Gram Stain - Final 04/19/22 13:30 Sputum, Induced/Lukens Respiratory Culture - Preliminary Haemophilus influenzae 04/19/22 11:55 Blood Culture (Wb) - Left Hand Blood Culture - Preliminary No growth in 48 hours. 10/08/22 11:25 Blood Culture (Wb) - Anticubital Left Blood Culture - Preliminary No growth in 48 hours. 04/19/22 12:00 Urine Catheter - Christie Urine Culture - Final Culture exhibits no growth. 04/19/22 15:15 Mucosa - Nose Respiratory Panel (PCR) - Final Parainfluenza 4 04/19/22 15:15 Urine Catheter - Christie Legionella Antigen - Final 04/19/22 15:15 Urine Catheter - Christie Streptococcus pneumoniae Antigen (M - Final 04/19/22 12:00 Nasal Secretion SARS-CoV-2 Antigen (Rapid) - Final ABG Data ABG results: ABG 04/21/22 05:55 Specimen Type ART Sample Site L Radial pH 7.30 L Bicarbonate Actual 27.4 H Total CO2 29 Base Excess 1 O2 Saturation 94 L O2 % 30 ABG pCO2 55.9 H ABG pO2 80 Colin Test Negative O2 Delivery Device Adult Vent Vent Mode CPAP/PS POC PEEP 5 POC Pressure Suppt 5 Radiography Diagnostic Testing: Radiology Impression Echocardiogram 04/19/22 14:14 Interpretation Summary Technically difficult sudy. The left ventricular ejection fraction is 55 %. Severe posterior, inferior and inferior apical hypokinesis Ordering Physician: Jay Driscoll Referring Physician: Brett Hernandez Performed By: Tawnya Knott, GUIDOCS, RVT Renal Ultrasound 04/20/22 12:49 IMPRESSION: Normal ultrasound of the kidneys. Electronically Signed: Oscar Contreras MD at 8:50 EDT , Rhythm Strip Rhythm Strip: Sinus Rhythm Physical Exam Narrative Appearance: Alert and oriented x3, no apparent distress HEENT: Atraumatic, normocephalic. Mucous membrane moist. Neck: Supple. Heart: Normal S1, S2. No rubs, or murmurs. Lungs: Clear anteriorly Abdomen: Normal bowel sounds, soft, nontender Extremities: No clubbing or cyanosis. No bilateral lower extremity edema Skin: Warm and dry, no rash. Indwelling Christie catheter with clear urine in bag Assessment & Plan Assessment/Plan (1) JOHNNY (acute kidney injury): PLAN: - Nonoliguric acute kidney injury likely due to prerenal azotemia that may have evolved to ischemic ATN given transient hypotension and prior use of lisinopril. Serum creatinine 1.7 mg/dL on admission, peaked at 2.75 mg/dL yesterday and today has improved to 1.59 mg/dL. Baseline renal function is presumably normal. Serum creatinine was 0.91 mg/dL in July 2020 Urinalysis also showed high specific gravity without glucosuria which also suggests volume depletion. The patient does have proteinuria without prior history of diabetes, low suspicion for glomerulonephritis because there is no significant RBCs. Urine sodium 11, urine protein to creatinine ratio 370 mg/g. Renal ultrasound did not show any hydronephrosis, calculi or mass. 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 Labs ordered for morning. (2) Acute respiratory failure with hypoxia and hypercapnia: PLAN: Extubated this morning, management as per pulmonary/critical care medicine. On Solu-Medrol, Zosyn, bronchodilators. Blood cultures so far no growth (3) HTN (hypertension): PLAN: Agree with holding lisinopril for now because of JOHNNY. Current blood pressures acceptable. Not on any antihypertensives at this time.
[2022-04-21] MEDS: HEPARIN/D5w 25,000 UNITS 25,000 UNITS/250 ML IV.SOLN. 18 UNITS CONT INF (16:27)
[2022-04-21 17:50] LABS: Partial Thromboplast Time 55.3 Seconds (24.1-36.2)
[2022-04-21] MEDS: Atorvastatin Calcium 80 MG Tablet PO (21:00)
[2022-04-22] VITALS (30 sets, daily range): BP systolic 99–180; BP diastolic 59–113; PULSE 56–112; RESP 12–24; TEMP 36.3–38; O2SAT 94–99
[2022-04-22 00:09] LABS: Partial Thromboplast Time 58.7 Seconds (24.1-36.2)
[2022-04-22] MEDS: Ipratropium/Albuterol Sulfate 3 ML AMPUL.NEB INHALATION ×6 (02:01→22:25)
[2022-04-22 04:03] LABS: Absolute Lymphocyte Count 0.59 X10^3/uL (0.83-4.51); Absolute Neutrophil Count 8.6 X10^3/uL (2.0-7.7); Basophil# 0.05 X10^3/uL; Basophil% 0.5 % (0-1); Eosinophil# 0.32 X10^3/uL; Eosinophils% 3.1 % (0-5); Hemoglobin 13.5 g/dL (13.0-16.5); Lymphocyte # 0.59 X10^3/ul (0.83-4.51); Lymphocyte % 5.7 % (19-41); Mean Corpuscular Hgb 28.9 pg (27.0-32.0); Mean Corpuscular Volume 96.4 fL (80-94); Mean Platelet Vol. 11.8 fl (6.2-12.0); Monocyte# 0.67 X10^3/uL; Monocyte% 6.5 % (0-10); NRBC Flagged by Analyzer 0 % (0-5); Neutrophil # 8.61 X10^3/uL (2.7-7.7); Neutrophil % 82.9 % (47-70); POSITIVE DIFFERENTIAL YES; Platelet Count 206 K/mm3 (150-450); RBC Distribution Width CV 14.1 % (11.6-14.6); RBC Distribution Width SD 49.4 fl (35.1-43.9); Red Blood Count 4.67 M/mm3 (4.6-6.2); White Blood Count 10.4 K/mm3 (4.4-11.0)
[2022-04-22 04:11] LABS: Differential Indicated SCAN CRITERIA MET
[2022-04-22 04:39] LABS: Partial Thromboplast Time 61.8 Seconds (24.1-36.2)
[2022-04-22 04:46] LABS: ALB/GLOB Ratio 0.6 RATIO (0.9-2.4); AST(SGOT) 46 U/L (15-37); Alanine Aminotransfer ALT/SGPT 67 U/L (16-61); Albumin, Serum 2.4 g/dL (3.2-5.0); Alkaline Phosphatase 90 U/L (45-117); Anion Gap 7 (5-15); BUN 42 mg/dL (7-18); BUN/Creat Ratio 39.6 RATIO (10-20); Chloride 106 mmol/L (98-107); Creatinine, Serum 1.06 mg/dL (0.70-1.30); EST Glomerular Filtration Rate 76 mL/min (>60); Est Glom Filt Rate - Afr Amer 92 mL/min (>60); Estimated Creatinine Clearance 81.34 ml/min; Globulin 4.3 g/dL (2.2-4.2); Glucose 159 mg/dL (74-106); Potassium 4.5 mmol/L (3.5-5.1); Protein, Total 6.7 g/dL (6.4-8.2); Sodium Level 143 mmol/L (136-145)
[2022-04-22 04:51] LABS: Differential Comment SCANNED
[2022-04-22] MEDS: HEPARIN/D5w 25,000 UNITS 25,000 UNITS/250 ML IV.SOLN. 18 UNITS CONT INF ×2 (05:14→19:59)
--- NOTE | 2022-04-22 07:36 | PN.HOSP_ITS ---
Subjective Subjective Follow-up for acute combined respiratory failure, sepsis, non-STEMI and pneumonia Mild fever T-max 100.4 Fahrenheit.On BiPAP 30%. Tapered down to 2 L of oxygen through nasal cannula. Patient had good bowel movement in the morning today. Objective Data Objective Data Vital Signs: Vital Signs Temp Pulse Resp BP Pulse Ox O2 Del Method O2 Flow Rate 100.4 F H 112 H 19 H 99/59 L 96 Bi-pap 2 04/22/22 07:00 04/22/22 07:00 04/22/22 07:00 04/22/22 07:00 04/22/22 07:00 04/22/22 07:00 04/22/22 06:49 FiO2 30 04/22/22 07:00 Oxygen Flow Rate (L/min) 2 Oxygen Delivery Method Bi-pap Weight: 223 lb 12.307 oz Body Mass Index (BMI) 28.6 Intake & Output: Intake and Output for Last 24 Hours 04/20/22 04/21/22 04/22/22 23:59 23:59 23:59 Intake Total 2700.94 / 2842.74 2294.07 / 2294.07 151.7 / 151.7 Output Total 620 / 770 1475 / 1675 475 / 475 Balance 2080.94 / 2072.74 819.07 / 619.07 -323.3 / -323.3 Lab / Micro Data Result Diagrams: 04/22/22 03:50 04/22/22 04:15 Labs: Laboratory Results - last 24 hr 04/21/22 08:30: Troponin I High Sens 5638 H* 04/21/22 08:30: Sodium 140, Potassium 4.0, Chloride 103, Carbon Dioxide 28.0, Anion Gap 9, BUN 57 H, Creatinine 1.59 H, Estim Creat Clear Calc 54.23, Est GFR (MDRD) Af Amer 57 L, Est GFR (MDRD) Non-Af 47 L, BUN/Creatinine Ratio 35.8 H, Glucose 204 H, Calcium 9.2, Total Bilirubin 0.30, AST 66 H, ALT 72 H, Alkaline Phosphatase 93, Total Protein 6.7, Albumin 2.4 L, Globulin 4.3 H, Albumin/Globulin Ratio 0.6 L 04/21/22 10:40: APTT 51.5 H 04/21/22 17:30: APTT 55.3 H 04/21/22 23:35: APTT 58.7 H 04/22/22 03:50: WBC 10.4, RBC 4.67, Hgb 13.5, Hct 45.0, MCV 96.4 H, MCH 28.9, MCHC 30.0 L, RDW Std Deviation 49.4 H, RDW Coeff of Teressa 14.1, Plt Count 206, MPV 11.8, Immature Gran % (Auto) 1.300 H, Neut % (Auto) 82.9 H, Lymph % (Auto) 5.7 L , [place] % (Auto) 6.5, Eos % (Auto) 3.1, Baso % (Auto) 0.5, Absolute Neuts (auto) 8.6 H, Absolute Lymphs (auto) 0.59 L, Nucleated RBC % 0, Differential Comment SCANNED 04/22/22 03:50: APTT Cancelled 04/22/22 04:15: APTT 61.8 H 04/22/22 04:15: Sodium 143, Potassium 4.5, Chloride 106, Carbon Dioxide 30.0, Anion Gap 7, BUN 42 H, Creatinine 1.06, Estim Creat Clear Calc 81.34, Est GFR (MDRD) Af Amer 92, Est GFR (MDRD) Non-Af 76, BUN/Creatinine Ratio 39.6 H, Glucose 159 H, Calcium 9.0, Total Bilirubin 0.30, AST 46 H, ALT 67 H, Alkaline Phosphatase 90, Total Protein 6.7, Albumin 2.4 L, Globulin 4.3 H, Albumin/Globulin Ratio 0.6 L Micro: Microbiology 04/19/22 13:30 Sputum, Induced/Lukens Gram Stain - Final 04/19/22 13:30 Sputum, Induced/Lukens Respiratory Culture - Preliminary Haemophilus influenzae 04/19/22 11:55 Blood Culture (Wb) - Left Hand Blood Culture - Preliminary No growth in 48 hours. 04/19/22 11:25 Blood Culture (Wb) - Anticubital Left Blood Culture - Preliminary No growth in 48 hours. 04/19/22 12:00 Urine Catheter - Christie Urine Culture - Final Culture exhibits no growth. 04/19/22 15:15 Mucosa - Nose Respiratory Panel (PCR) - Final Parainfluenza 4 04/19/22 15:15 Urine Catheter - Christie Legionella Antigen - Final 04/19/22 15:15 Urine Catheter - Christie Streptococcus pneumoniae Antigen (M - Final 04/19/22 12:00 Nasal Secretion SARS-CoV-2 Antigen (Rapid) - Final Radiography Diagnostic Testing: Radiology Impression Echocardiogram 04/19/22 14:14 Interpretation Summary Technically difficult sudy. The left ventricular ejection fraction is 55 %. Severe posterior, inferior and inferior apical hypokinesis Renal Ultrasound 04/20/22 12:49 IMPRESSION: Normal ultrasound of the kidneys. Rhythm Strip Rhythm Strip: Sinus Rhythm Physical Exam Narrative Seen and examined Patient still feels mild generalized chest tightness. General: Awake, alert and oriented x3. HEENT: Atraumatic, PERRLA, EOMI, Normocephalic Oral: On BiPAP mask Neck: Supple, No JVD, Negative Carotid Bruits Lungs: Air entry diminished bilaterally. Bilateral wheezing and coarse crepitations. Mild hypoxia Cardiovascular: Sinus rhythm, normal S1, Normal S2, No murmurs Abdomen: Bowel Sounds good, Soft, Non Tender, Non-Distended : Christie catheter, clear urine no renal angle tenderness. No suprapubic tenderness. Extremities: No edema, Capillary Refill Less than 3 Seconds Skin: Mottled bluish discoloration of feet and toes Musculoskeletal: No Tenderness to Palpation of Joints or Extremities Neurological: Awake, no acute focal neurological finding/deficit. Cranial nerves, 2-12 intact, DTR 2+ Psych/Mental Status: Awake. Assessment & Plan Assessment/Plan (1) Non-ST elevated myocardial infarction: (2) Community acquired pneumonia: (3) JOHNNY (acute kidney injury): (4) Acute respiratory failure with hypoxia and hypercapnia: (5) Sepsis with acute organ dysfunction without septic shock: PLAN: Plan This 61-year-old question gentleman admitted with acute combined respiratory f ailure, features suggestive of sepsis and non-STEMI 1. Acute combined hypoxic and hypercarbic respiratory failure probably due to pneumonia and COPD exacerbation with history of stage III gold COPD: Patient is being admitted in ICU. Pulmonary office visit note reviewed. Last PFT in April 2020 shows a reversible very severe mixed ventilatory defect with preserved DLCO. Compared to previous study significant reduction in lung volume by 38%. FEV1 35% predicted. No significant bronchodilator response. Patient is intubated. ABG reviewed. 7.20/66/116/5 on 65 % FiO2/450/5. ABG suggestive of acute respiratory acidosis as bicarb is normal at 26 on BMP. 04/20: Patient had fever T-max 101.1 Fahrenheit last evening. Dural Mechanic consult reviewed. Repeat ABG reviewed. pH 7.21/65/87/26 at 45% FiO2, 450/5. Vent setting optimized. Vent management as per siene maker. Repeat ABG shows slight improvement in pH and PCO2. 04/21: Patient extubated on BiPAP 30% FiO2. Mild respiratory distress. 04/22: Patient is saturating well on 2 L of oxygen, BiPAP at night. Transferred to PCU. 2. Sepsis most likely due to pneumonia: The patient presented with sepsis most likely due to pneumonia with acute sepsis-related organ dysfunction as evidenced by acute combined respiratory failure, lactic acidosis and JOHNNY although creatinine is not more than 2.0. In ED, blood pressure was high 212/111, decreased due to propofol drip. Patient on broad-spectrum antibiotic IV Zosyn. 04/19: Repeat lactic acid normal. Urinary antigens are negative. Respiratory panel shows parainfluenza 4. Urinary antigens and rapid SARS-CoV-2 antigen negative. MRSA PCR negative. Blood culture respiratory culture pending. 04/21: Sputum culture preliminary shows GNR, possible haemophilus influenza. Continue antibiotic. 04/22: Sputum culture shows beta-lactamase Haemophilus influenzae. Antibiotic Zosyn narrowed down to ceftriaxone 1 g daily. 3. Non-STEMI probably due to type II demand ischemia from sepsis: Troponins are high. EKG shows sinus tachycardia and Q waves in inferior leads. Cycle troponin. Patient empirically on IV heparin drip and aspirin. Court Worker consulted. 2D echo is ordered 04/20: Discussed with the manifest/order organizer print orders on 04/19. Plavix added. I also talked to the patient's son and in the evening of 04/19. Patient's son is orthopedic surgeon in [place]. Explained about the possible causes of high troponin due to type II demand ischemia. His son wanted PE to be ruled out although patient is empirically on IV heparin for non-STEMI. BNP 243, and CK are high. 2D echo pending. Court Worker consult reviewed and appreciated. At present not candidate for invasive cardiac cath because of acute respiratory failure on vent and acute kidney injury. 10/11: 2D echo reported EF 55%, technically difficult study. Severe posterior, inferior and inferior apical hypokinesis. Overall suggestive of non-STEMI with preserved EF. 4. JOHNNY probably prerenal or sepsis: Patient baseline creatinine runs around 1.0, last one 0.9 in July 2020. Admitted with BUN/creatinine 24/1.7. IV fluid normal saline. Patient has Christie catheter monitor intake and output. If kidney function does not improve, will need renal ultrasound and nephrology consult. 04/20: BUN/creatinine high. JOHNNY probably prerenal with possibility of ATN from sepsis. Kidneys and bladder ultrasound and nephrology consult requested. 04/21: Creatinine downtrending 1.77.Hyperkalemia, K6.4, bicarb and anion gap normal. Patient had about 6 800 mL urine output. 04/22: BUN 42, creatinine 1.06. JOHNNY resolved. 5. Stage III severe COPD with asthma and continued chronic smoking: Bronchod ilator, IV Solu-Medrol and antibiotics as mentioned above. Patient not adherent into pulmonary clinic visit. 6. Hypertension: Currently blood pressure is in normal range. 04/20: Blood pressure in systolic 100 probably due to sedatives. 04/21: Blood pressure is high. Lisinopril 10 mg started. At home, patient was on lisinopril 20 mg daily. Gradually titrate up as tolerated by patient's kidney function. 7. Hyperglycemia: Glucose is 210. Accu-Chek before meals and at bedtime and cover with Humalog sliding scale. Patient does not have history of diabetes mellitus. A1c tomorrow AM. Glucose was 83 in July 2020 in [facility] VTE prophylaxis, high risk. On IV heparin drip. Total time of the visit including total time spent in counseling or coordination of care, (more than 50% of the total time, spent in obtaining medical information from nurses and other ancillary care providers,explaining to the patient about labs, imaging, diagnosis and management of active complex medical conditions), discussion with consultants, review of labs and imaging is 45 mi nutes. Living will/advanced directive/end of life care: Patient does not have living will or advanced directive. After discussion of benefits/risks procedures involved with full code, DNR CC arrest and DNR CC, said continue full code Patient's does want artificial life support including intubation, tube feed, ventilator and/chest compression, central venous catheter, vasopressor and DC shock if needed Total time spent in [id number] encounter in discussion of advanced directive 16 minutes. Microbiology Past 72 Hours 04/19/22 13:30 Sputum, Induced/Lukens Gram Stain - Final 04/19/22 13:30 Sputum, Induced/Lukens Respiratory Culture - Preliminary Haemophilus influenzae 04/19/22 11:55 Blood Culture (Wb) - Left Hand Blood Culture - Preliminary No growth in 48 hours. 04/19/22 11:25 Blood Culture (Wb) - Anticubital Left Blood Culture - Preliminary No growth in 48 hours. 04/19/22 12:00 Urine Catheter - Christie Urine Culture - Final Culture exhibits no growth. 04/19/22 15:15 Mucosa - Nose Respiratory Panel (PCR) - Final Parainfluenza 4 04/19/22 15:15 Urine Catheter - Christie Legionella Antigen - Final 04/19/22 15:15 Urine Catheter - Christie Streptococcus pneumoniae Antigen (M - Final 04/19/22 12:00 Nasal Secretion SARS-CoV-2 Antigen (Rapid) - Final Laboratory Results 04/22/22 03:50: WBC 10.4, RBC 4.67, Hgb 13.5, Hct 45.0, MCV 96.4 H, MCH 28.9, MCHC 30.0 L, RDW Std Deviation 49.4 H, RDW Coeff of Teressa 14.1, Plt Count 206, MPV 11.8, Immature Gran % (Auto) 1.300 H, Neut % (Auto) 82.9 H, Lymph % (Auto) 5.7 L , [place] % (Auto) 6.5, Eos % (Auto) 3.1, Baso % (Auto) 0.5, Absolute Neuts (auto) 8.6 H, Absolute Lymphs (auto) 0.59 L, Nucleated RBC % 0, Differential Comment SCANNED 04/22/22 04:15: APTT 61.8 H 04/22/22 04:15: Sodium 143, Potassium 4.5, Chloride 106, Carbon Dioxide 30.0, Anion Gap 7, BUN 42 H, Creatinine 1.06, Estim Creat Clear Calc 81.34, Est GFR (MDRD) Af Amer 92, Est GFR (MDRD) Non-Af 76, BUN/Creatinine Ratio 39.6 H, Glucose 159 H, Calcium 9.0, Total Bilirubin 0.30, AST 46 H, ALT 67 H, Alkaline Phosphatase 90, Total Protein 6.7, Albumin 2.4 L, Globulin 4.3 H, Albumin/Globulin Ratio 0.6 L Clinical Impression(s) from Imaging Studies Chest X-Ray 04/19/22 11:23 IMPRESSION: Mild atelectatic changes in the left lung base. Charges/Coding Visit Charges Inpatient E&M: 47184 Subs Hosp L3
--- NOTE | 2022-04-22 07:42 | PN.CC_ITS ---
Assessment & Plan Assessment/Plan (1) Sepsis with acute organ dysfunction without septic shock: PLAN: Plan RECOMMENDATIONS: 1. Wean supplemental oxygen as tolerated. BiPAP with sleep and breaks as needed 2. Increase activity as tolerated 3. Continue to wean supplemental oxygen to maintain saturations at or above 90%. 4. Likely okay to wean antibiotic spectrum 5. Continue scheduled bronchodilators and IV steroids. 6. Continue heparin infusion and await echocardiogram. 7. Encourage incentive spirometer use and mobilize patient as tolerated. 8. Likely okay to leave the intensive care unit IMPRESSIONS: 1. Acute combined respiratory failure The patient presented with an acute COPD exacerbation likely precipitated by combined parainfluenza infection and H. influenzae. The patient has improved clinically with invasive mechanical ventilatory support along with antimicrobials, bronchodilators and steroids. Continue with BiPAP breaks as necessary. Would continue BiPAP with sleep. Continue to wean supplemental oxygen to maintain saturations at or above 90%. Continue aggressive bronchopulmonary hygiene and mobilize patient as tolerated. 2. Sepsis The patient presented with sepsis due to pneumonia with acute sepsis related organ dysfunction as evidenced by acute respiratory failure requiring invasive mechanical ventilatory support, acute kidney injury and lactic acidemia. The patient did receive supplemental IV fluid hydration and will be maintained on empiric antimicrobials. Likely okay to narrow antibiotic spectrum the patient remains hemodynamically stable at the present time. 3. Troponin elevation Likely secondary to demand ischemia in the setting of numbers 1 and 2. Echocardiogram is currently pending. Cardiology is following to assist with medical management. Patient is on a heparin drip at this time. 4. Acute kidney injury Improving. Most likely prerenal in etiology with possible ischemic ATN in the setting of #1. Renal ultrasound is unremarkable. Patient with significant hypertension and renal function back to normal. We will reinitiate ESTEFANIA inhibitor at half dose. Nephrology is following to assist with medical management. 5. Hypertension/hyperlipidemia Complicates care, management, recovery and prognosis. Continue home statin. Physical therapy to evaluate the patient. Subjective Subjective Patient did okay overnight. No acute issues were reported outside of a mild fever. Patient is stating that he feels more comfortable breathing with BiPAP. Patient does have a cough that is intermittently productive. Objective Data Objective Data Vital Signs: Vital Signs Temp Pulse Resp BP Pulse Ox O2 Del Method O2 Flow Rate 38.0 C H 112 H 19 H 99/59 L 96 Bi-pap 2 04/22/22 07:00 04/22/22 07:00 04/22/22 07:00 04/22/22 07:00 04/22/22 07:00 04/22/22 07:00 04/22/22 06:49 FiO2 30 04/22/22 07:00 Oxygen Flow Rate (L/min) 2 Oxygen Delivery Method Bi-pap Weight: 101.5 kg Body Mass Index (BMI) 28.6 Intake & Output: Intake and Output for Last 24 Hours 04/20/22 04/21/22 04/22/22 23:59 23:59 23:59 Intake Total 2700.94 / 2842.74 2294.07 / 2294.07 151.7 / 151.7 Output Total 620 / 770 1475 / 1675 475 / 475 Balance 2080.94 / 2072.74 819.07 / 619.07 -323.3 / -323.3 Lab / Micro Data Attestation: I reviewed the patient's lab results. Result Diagrams: 04/22/22 03:50 04/22/22 04:15 Labs: Laboratory Results - last 24 hr 04/21/22 05:00: Sodium Cancelled, Potassium Cancelled, Chloride Cancelled, Carbon Dioxide Cancelled, Anion Gap Cancelled, BUN Cancelled, Creatinine C ancelled, Estim Creat Clear Calc Cancelled, Est GFR (MDRD) Af Amer Cancelled, Est GFR (MDRD) Non-Af Cancelled, BUN/Creatinine Ratio Cancelled, Glucose Cancelled, Calcium Cancelled, Total Bilirubin Cancelled, AST Cancelled, ALT Cancelled, Alkaline Phosphatase Cancelled, Total Protein Cancelled, Albumin Cancelled, Globulin Cancelled, Albumin/Globulin Ratio Cancelled 04/21/22 05:00: Troponin I High Sens Cancelled 04/21/22 08:30: Troponin I High Sens 5638 H* 04/21/22 08:30: Sodium 140, Potassium 4.0, Chloride 103, Carbon Dioxide 28.0, Anion Gap 9, BUN 57 H, Creatinine 1.59 H, Estim Creat Clear Calc 54.23, Est GFR (MDRD) Af Amer 57 L, Est GFR (MDRD) Non-Af 47 L, BUN/Creatinine Ratio 35.8 H, Glucose 204 H, Calcium 9.2, Total Bilirubin 0.30, AST 66 H, ALT 72 H, Alkaline Phosphatase 93, Total Protein 6.7, Albumin 2.4 L, Globulin 4.3 H, Albumin/Globulin Ratio 0.6 L 04/21/22 10:40: APTT 51.5 H 04/21/22 17:30: APTT 55.3 H 04/21/22 23:35: APTT 58.7 H 04/22/22 03:50: WBC 10.4, RBC 4.67, Hgb 13.5, Hct 45.0, MCV 96.4 H, MCH 28.9, MCHC 30.0 L, RDW Std Deviation 49.4 H, RDW Coeff of Teressa 14.1, Plt Count 206, MPV 11.8, Immature Gran % (Auto) 1.300 H, Neut % (Auto) 82.9 H, Lymph % (Auto) 5.7 L , [place] % (Auto) 6.5, Eos % (Auto) 3.1, Baso % (Auto) 0.5, Absolute Neuts (auto) 8.6 H, Absolute Lymphs (auto) 0.59 L, Nucleated RBC % 0, Differential Comment SCANNED 04/22/22 03:50: Sodium Cancelled, Potassium Cancelled, Chloride Cancelled, Carbon Dioxide Cancelled, Anion Gap Cancelled, BUN Cancelled, Creatinine Cancelled, Estim Creat Clear Calc Cancelled, Est GFR (MDRD) Af Amer Cancelled, Est GFR (MDRD) Non-Af Cancelled, BUN/Creatinine Ratio Cancelled, Glucose Cancelled, Calcium Cancelled, Total Bilirubin Cancelled, AST Cancelled, ALT Cancelled, Alkaline Phosphatase Cancelled, Total Protein Cancelled, Albumin Cancelled, Globulin Cancelled, Albumin/Globulin Ratio Cancelled 04/22/22 03:50: APTT Cancelled 04/22/22 04:15: APTT 61.8 H 04/22/22 04:15: Sodium 143, Potassium 4.5, Chloride 106, Carbon Dioxide 30.0, Anion Gap 7, BUN 42 H, Creatinine 1.06, Estim Creat Clear Calc 81.34, Est GFR (MDRD) Af Amer 92, Est GFR (MDRD) Non-Af 76, BUN/Creatinine Ratio 39.6 H, Glucose 159 H, Calcium 9.0, Total Bilirubin 0.30, AST 46 H, ALT 67 H, Alkaline Phosphatase 90, Total Protein 6.7, Albumin 2.4 L, Globulin 4.3 H, Albumin/Globul in Ratio 0.6 L Micro: Microbiology 04/19/22 13:30 Sputum, Induced/Lukens Gram Stain - Final 04/19/22 13:30 Sputum, Induced/Lukens Respiratory Culture - Preliminary Haemophilus influenzae 04/19/22 11:55 Blood Culture (Wb) - Left Hand Blood Culture - Preliminary No growth in 48 hours. 04/19/22 11:25 Blood Culture (Wb) - Anticubital Left Blood Culture - Preliminary No growth in 48 hours. 04/19/22 12:00 Urine Catheter - Christie Urine Culture - Final Culture exhibits no growth. 04/19/22 15:15 Mucosa - Nose Respiratory Panel (PCR) - Final Parainfluenza 4 04/19/22 15:15 Urine Catheter - Christie Legionella Antigen - Final 04/19/22 15:15 Urine Catheter - Christie Streptococcus pneumoniae Antigen (M - Final 04/19/22 12:00 Nasal Secretion SARS-CoV-2 Antigen (Rapid) - Final Radiography Diagnostic Testing: Radiology Impression Echocardiogram 04/19/22 14:14 Interpretation Summary Technically difficult sudy. The left ventricular ejection fraction is 55 %. Severe posterior, inferior and inferior apical hypokinesis Ordering Physician: Jay Driscoll Referring Physician: Brett Hernandez Performed By: Tawnya Knott, RDCS, RVT Renal Ultrasound 04/20/22 12:49 IMPRESSION: Normal ultrasound of the kidneys. Electronically Signed: Oscar Contreras MD at 8:50 EDT , Rhythm Strip Rhythm Strip: Sinus Rhythm Rate: 76 Physical Exam Const alert, oriented x3 and no apparent distress Constitutional Narrative: Slightly hoarse voice General Appearance: cooperative HEENT normocephalic and head/scalp atraumatic Eyes PERRL, EOMs intact bilaterally and conjunctivae normal Sclera: sclera abnormal Positive for bilateral Details: scleral injection Neck supple General: trachea midline Chest Chest: abnormal inspection of the chest increased A-P diameter Resp Effort and Inspection: actively coughing moist and prolonged expiratory phase Auscultation: wheezes expiratory wheezes and throughout and diminished lung sounds; Negative for rales or rhonchi Cardio regular rate, regular rhythm, S1 normal heart sound, S2 normal heart sound, no murmurs, no rub and no gallops GI normal to inspection, nondistended, normoactive bowel sounds Extremity no clubbing, cyanosis or edema Skin no rashes or lesions noted Neuro oriented x3, CN's II-XII intact bilaterally, moves all extremities and no focal motor deficits Psych cooperative and affect normal Charges/Coding Visit Charges Inpatient E&M: 98782 Subs Hosp L3
[2022-04-22] MEDS: Lisinopril 10 MG Tablet PO (08:01)
[2022-04-22] MEDS: Aspirin E.C. 81 MG Tablet PO (08:01)
[2022-04-22] MEDS: Clopidogrel Bisulfate 75 MG Tablet PO (08:01)
[2022-04-22] MEDS: Ceftriaxone 1 GM/50 ML BAG IV (10:38)
[2022-04-22] MEDS: Labetalol (Prefilled) 20 MG/4 ML IV (10:39)
[2022-04-22] MEDS: 0.9% Saline Lock 10 ML Syringe IV ×3 (10:39→21:28)
--- NOTE | 2022-04-22 12:03 | PN.RENAL_ITS ---
Subjective Subjective Following for JOHNNY Sitting up in chair, at bedside. No overnight events. Denies any nausea, vomiting, diarrhea. Objective Data Objective Data Vital Signs: Vital Signs Temp Pulse Resp BP Pulse Ox O2 Del Method O2 Flow Rate 97.6 F L 72 22 H 128/85 H 96 Nasal Cannula 2 04/22/22 11:00 04/22/22 11:00 04/22/22 11:00 04/22/22 11:00 04/22/22 11:00 04/22/22 11:00 04/22/22 11:00 FiO2 30 04/22/22 10:00 Oxygen Flow Rate (L/min) 2 Oxygen Delivery Method Nasal Cannula Weight: 101.5 kg Body Mass Index (BMI) 28.6 Intake & Output: Intake and Output for Last 24 Hours 04/20/22 04/21/22 04/22/22 23:59 23:59 23:59 Intake Total 2700.94 / 2842.74 2294.07 / 2294.07 251.7 / 251.7 Output Total 620 / 770 1475 / 1675 725 / 725 Balance 2080.94 / 2072.74 819.07 / 619.07 -473.3 / -473.3 Lab / Micro Data Result Diagrams: 04/22/22 03:50 04/22/22 04:15 Labs: Laboratory Results - last 24 hr 04/21/22 17:30: APTT 55.3 H 04/21/22 23:35: APTT 58.7 H 04/22/22 03:50: WBC 10.4, RBC 4.67, Hgb 13.5, Hct 45.0, MCV 96.4 H, MCH 28.9, MCHC 30.0 L, RDW Std Deviation 49.4 H, RDW Coeff of Teressa 14.1, Plt Count 206, MPV 11.8, Immature Gran % (Auto) 1.300 H, Neut % (Auto) 82.9 H, Lymph % (Auto) 5.7 L , [place] % (Auto) 6.5, Eos % (Auto) 3.1, Baso % (Auto) 0.5, Absolute Neuts (auto) 8.6 H, Absolute Lymphs (auto) 0.59 L, Nucleated RBC % 0, Differential Comment SCANNED 04/22/22 03:50: Sodium Cancelled, Potassium Cancelled, Chloride Cancelled, Carbon Dioxide Cancelled, Anion Gap Cancelled, BUN Cancelled, Creatinine Cancelled, Estim Creat Clear Calc Cancelled, Est GFR (MDRD) Af Amer Cancelled, E st GFR (MDRD) Non-Af Cancelled, BUN/Creatinine Ratio Cancelled, Glucose Cancelled, Calcium Cancelled, Total Bilirubin Cancelled, AST Cancelled, ALT Cancelled, Alkaline Phosphatase Cancelled, Total Protein Cancelled, Albumin Cancelled, Globulin Cancelled, Albumin/Globulin Ratio Cancelled 04/22/22 03:50: APTT Cancelled 04/22/22 04:15: APTT 61.8 H 04/22/22 04:15: Sodium 143, Potassium 4.5, Chloride 106, Carbon Dioxide 30.0, Anion Gap 7, BUN 42 H, Creatinine 1.06, Estim Creat Clear Calc 81.34, Est GFR (MDRD) Af Amer 92, Est GFR (MDRD) Non-Af 76, BUN/Creatinine Ratio 39.6 H, Glucose 159 H, Calcium 9.0, Total Bilirubin 0.30, AST 46 H, ALT 67 H, Alkaline Phosphatase 90, Total Protein 6.7, Albumin 2.4 L, Globulin 4.3 H, Albumin/Globu pérez Ratio 0.6 L Micro: Microbiology 04/19/22 13:30 Sputum, Induced/Lukens Gram Stain - Final 04/19/22 13:30 Sputum, Induced/Lukens Respiratory Culture - Final Haemophilus influenzae 04/19/22 11:55 Blood Culture (Wb) - Left Hand Blood Culture - Preliminary No growth in 48 hours. 04/19/22 11:25 Blood Culture (Wb) - Anticubital Left Blood Culture - Pre liminary No growth in 48 hours. 04/19/22 12:00 Urine Catheter - Christie Urine Culture - Final Culture exhibits no growth. 04/19/22 15:15 Mucosa - Nose Respiratory Panel (PCR) - Final Parainfluenza 4 04/19/22 15:15 Urine Catheter - Christie Legionella Antigen - Final 04/19/22 15:15 Urine Catheter - Christie Streptococcus pneumoniae Antigen (M - Final 04/19/22 12:00 Nasal Secretion SARS-CoV-2 Antigen (Rapid) - Final Rhythm Strip Rhythm Strip: Sinus Rhythm Rate: 76 Physical Exam Narrative Appearance: Alert and oriented x3, no apparent distress HEENT: Atraumatic, normocephalic. Mucous membranes moist. Heart: Normal S1, S2. No rubs or murmurs. Lungs: Clear anteriorly Abdomen: Normal bowel sounds, soft, nontender Extremities: No clubbing or cyanosis. No bilateral lower extremity edema Skin: Warm and dry, no rash. Indwelling Christie catheter with clear urine in bag Assessment & Plan Assessment/Plan (1) JOHNNY (acute kidney injury): PLAN: - Nonoliguric JOHNNY likely due to prerenal azotemia that may have evolved to ischemic ATN given transient hypotension and prior use of lisinopril. Serum creatinine 1.7 mg/dL on admission, peaked at 2.75 mg/dL and today has improved to 1.06 mg/dL. Baseline renal function is presumably normal. Serum creatinine was 0.91 mg/dL in July 2020 Urinalysis showed high specific gravity without glucosuria which also suggests volume depletion. The patient does have proteinuria without prior history of diabetes, low suspicion for glomerulonephritis because there is no significant RBCs. Urine sodium 11, urine protein to creatinine ratio 370 mg/g. Renal ultrasound did not show any hydronephrosis, calculi or mass. Overall renal function has improved, there is no acute indication for PROCESS DESIGN CHEMICAL ENGINEER. Remove Christie if okay with primary team. (2) Acute respiratory failure with hypoxia and hypercapnia: PLAN: Extubated 04/21, management as per pulmonary/critical care medicine. On Solu-Medrol, Zosyn, bronchodilators. Blood cultures so far no growth (3) HTN (hypertension): PLAN: Lisinopril was initially on hold due to JOHNNY. Creatinine improved to 1.06 mg/dL today. Restarted back on lisinopril 10 mg today. Monitor creatinine trends.
[2022-04-22] MEDS: Atorvastatin Calcium 80 MG Tablet PO (21:27)
[2022-04-23] VITALS (23 sets, daily range): BP systolic 138–185; BP diastolic 80–109; PULSE 58–92; RESP 12–20; TEMP 36.1–36.8; O2SAT 93–100
[2022-04-23] MEDS: Ipratropium/Albuterol Sulfate 3 ML AMPUL.NEB INHALATION ×4 (03:09→19:25)
[2022-04-23] MEDS: hydrALAZINE 20 MG/ML Vial IV (03:26)
[2022-04-23] MEDS: 0.9% Saline Lock 10 ML Syringe IV ×2 (03:26→12:53)
[2022-04-23 07:07] LABS: Partial Thromboplast Time 55.5 Seconds (24.1-36.2)
[2022-04-23 07:36] LABS: ALB/GLOB Ratio 0.6 RATIO (0.9-2.4); AST(SGOT) 38 U/L (15-37); Alanine Aminotransfer ALT/SGPT 72 U/L (16-61); Albumin, Serum 2.4 g/dL (3.2-5.0); Alkaline Phosphatase 87 U/L (45-117); Anion Gap 5 (5-15); BUN 36 mg/dL (7-18); BUN/Creat Ratio 48.7 RATIO (10-20); Calcium,Total 9.2 mg/dL (8.5-10.1); Chloride 104 mmol/L (98-107); Creatinine, Serum 0.74 mg/dL (0.70-1.30); EST Glomerular Filtration Rate 115 mL/min (>60); Est Glom Filt Rate - Afr Amer 139 mL/min (>60); Estimated Creatinine Clearance 116.52 ml/min; Globulin 4.2 g/dL (2.2-4.2); Glucose 138 mg/dL (74-106); Potassium 4.6 mmol/L (3.5-5.1); Protein, Total 6.6 g/dL (6.4-8.2); Sodium Level 140 mmol/L (136-145)
[2022-04-23] MEDS: Aspirin E.C. 81 MG Tablet PO (08:14)
[2022-04-23 08:17] LABS: Absolute Lymphocyte Count 1.16 X10^3/uL (0.83-4.51); Absolute Neutrophil Count 6.4 X10^3/uL (2.0-7.7); Basophil# 0.06 X10^3/uL; Basophil% 0.7 % (0-1); Eosinophil# 0.52 X10^3/uL; Eosinophils% 5.8 % (0-5); Hematocrit 44.6 % (40-54); Hemoglobin 14.2 g/dL (13.0-16.5); Lymphocyte # 1.16 X10^3/ul (0.83-4.51); Lymphocyte % 12.9 % (19-41); Mean Corp Hgb Conc 31.8 g/dL (32-36); Mean Corpuscular Hgb 29.3 pg (27.0-32.0); Mean Platelet Vol. 12.3 fl (6.2-12.0); Monocyte# 0.68 X10^3/uL; Monocyte% 7.6 % (0-10); NRBC Flagged by Analyzer 0 % (0-5); Neutrophil # 6.36 X10^3/uL (2.7-7.7); Neutrophil % 70.8 % (47-70); POSITIVE MORPHOLOGY YES; Platelet Count 242 K/mm3 (150-450); RBC Distribution Width CV 13.9 % (11.6-14.6); RBC Distribution Width SD 47.7 fl (35.1-43.9); Red Blood Count 4.85 M/mm3 (4.6-6.2)
[2022-04-23 08:25] LABS: Differential Indicated SCAN CRITERIA MET
--- NOTE | 2022-04-23 08:44 | PCM.PN.INT ---
Assessment & Plan Assessment/Plan (1) Sepsis with acute organ dysfunction without septic shock: PLAN: Plan RECOMMENDATIONS: 1. Wean supplemental oxygen as tolerated. BiPAP with sleep and breaks as needed 2. Increase activity as tolerated 3. Continue to wean supplemental oxygen to maintain saturations at or above 90%. 4. Complete 7 to 10 days of antibiotics 5. Continue scheduled bronchodilators and wean IV steroids. 6. Continue heparin infusion 7. Encourage incentive spirometer use and mobilize patient as tolerated. 8. Okay to proceed with heart catheterization from my perspective IMPRESSIONS: 1. Acute combined respiratory failure The patient presented with an acute COPD exacerbation likely precipitated by combined parainfluenza infection and H. influenzae. The patient has improved clinically with invasive mechanical ventilatory support along with antimicrobials, bronchodilators. Wean steroids. Continue with BiPAP breaks as necessary and with sleep. Continue to wean supplemental oxygen to maintain saturations at or above 90%. Continue aggressive bronchopulmonary hygiene and mobilize patient as tolerated. 2. Sepsis Resolved. The patient presented with sepsis due to pneumonia with acute sepsis related organ dysfunction as evidenced by acute respiratory failure requiring invasive mechanical ventilatory support, acute kidney injury and lactic acidemia. The patient did receive supplemental IV fluid hydration and will be maintained on empiric antimicrobials. Patient will need 7 to 10 days of antibiotics for H. influenzae. 3. Troponin elevation Likely secondary to demand ischemia in the setting of numbers 1 and 2. Echocardiogram shows focal wall motion abnormality. Cardiology is following to assist with medical management. Patient is on a heparin drip at this time. Likely okay to proceed with heart catheterization from a pulmonary perspective. Defer to cardiology on timing. 4. Acute kidney injury Improving. Most likely prerenal in etiology with possible ischemic ATN in the setting of #1. Renal ultrasound is unremarkable. Defer to nephrology on advancement of ESTEFANIA inhibitor. Nephrology is following to assist with medical management. 5. Hypertension/hyperlipidemia Complicates care, management, recovery and prognosis. Continue home statin. Physical therapy to evaluate the patient. Subjective Subjective Patient transferred from the intensive care unit yesterday. Patient subjectively feels much improved compared to yesterday. Patient still having dyspnea on exertion, but does not feel like I need the BiPAP as much today. Patient still has a cough but reports improving production. Patient remains on a heparin drip, but is not reporting any bleeding complications Objective Data Objective Data Vital Signs: Vital Signs Temp Pulse Resp BP Pulse Ox O2 Del Method O2 Flow Rate 36.6 C 67 20 H 146/88 H 97 Nasal Cannula 2 04/23/22 04:33 04/23/22 07:30 04/23/22 07:30 04/23/22 04:33 04/23/22 07:30 04/23/22 08:37 04/23/22 08:37 FiO2 30 04/23/22 07:30 Oxygen Flow Rate (L/min) 2 Oxygen Delivery Method Nasal Cannula Weight: 101.1 kg Body Mass Index (BMI) 28.6 Intake & Output: Intake and Output for Last 24 Hours 04/21/22 04/22/22 04/23/22 23:59 23:59 23:59 Intake Total 2294.07 / 2294.07 981.7 / 981.7 Output Total 1475 / 1675 1300 / 1300 Balance 819.07 / 619.07 -318.3 / -318.3 Lab / Micro Data Result Diagrams: 04/23/22 06:29 04/23/22 06:29 Labs: Laboratory Results - last 24 hr 04/23/22 06:29: Sodium 140, Potassium 4.6, Chloride 104, Carbon Dioxide 31.0, Anion Gap 5, BUN 36 H, Creatinine 0.74, Estim Creat Clear Calc 116.52, Est GFR (MDRD) Af Amer 139, Est GFR (MDRD) Non-Af 115, BUN/Creatinine Ratio 48.7 H, Glucose 138 H, Calcium 9.2, Total Bilirubin 0.30, AST 38 H, ALT 72 H, Alkaline Phosphatase 87, Total Protein 6.6, Albumin 2.4 L, Globulin 4.2, Albumin/Globulin Ratio 0.6 L 04/23/22 06:29: APTT 55.5 H 04/23/22 06:29: WBC 9.0, RBC 4.85, Hgb 14.2, Hct 44.6, MCV 92.0, MCH 29.3, MCHC 31.8 L D, RDW Std Deviation 47.7 H, RDW Coeff of Teressa 13.9, Plt Count 242, MPV 12.3 H, Immature Gran % (Auto) 2.200 H, Neut % (Auto) 70.8 H, Lymph % (Auto) 12.9 L, [place] % (Auto) 7.6, Eos % (Auto) 5.8 H, Baso % (Auto) 0.7, Absolute Neuts (auto) 6.4, Absolute Lymphs (auto) 1.16, Nucleated RBC % 0 Micro: Microbiology 04/19/22 13:30 Sputum, Induced/Lukens Gram Stain - Final 04/19/22 13:30 Sputum, Induced/Lukens Respiratory Culture - Final Haemophilus influenzae 04/19/22 11:55 Blood Culture (Wb) - Left Hand Blood Culture - Preliminary No growth in 48 hours. 04/19/22 11:25 Blood Culture (Wb) - Anticubital Left Blood Culture - Preliminary No growth in 48 hours. 04/19/22 12:00 Urine Catheter - Christie Urine Culture - Final Culture exhibits no growth. 04/19/22 15:15 Mucosa - Nose Respiratory Panel (PCR) - Final Parainfluenza 4 04/19/22 15:15 Urine Catheter - Christie Legionella Antigen - Final 04/19/22 15:15 Urine Catheter - Christie Streptococcus pneumoniae Antigen (M - Final 04/19/22 12:00 Nasal Secretion SARS-CoV-2 Antigen (Rapid) - Final Rhythm Strip Rhythm Strip: Sinus Rhythm Rate: 89 Physical Exam Const alert, oriented x3 and no apparent distress Constitutional Narrative: Improved vocalization. Slightly brandyn appearance. General Appearance: cooperative HEENT normocephalic and head/scalp atraumatic Eyes PERRL, EOMs intact bilaterally and conjunctivae normal Sclera: sclera abnormal Positive for bilateral Details: scleral injection Neck supple General: trachea midline Chest Chest: abnormal inspection of the chest increased A-P diameter Resp Effort and Inspection: prolonged expiratory phase; Negative for actively coughing Auscultation: wheezes expiratory wheezes (Improved air exchange compared to yesterday) and diminished lung sounds; Negative for rales or rhonchi Cardio regular rate, regular rhythm, S1 normal heart sound, S2 normal heart sound, no murmurs, no rub and no gallops GI normal to inspection, nondistended, normoactive bowel sounds Extremity no clubbing, cyanosis or edema Skin no rashes or lesions noted Neuro oriented x3, CN's II-XII intact bilaterally, moves all extremities and no focal motor deficits Psych cooperative and affect normal Charges/Coding Visit Charges Inpatient E&M: 46807 Subs Hosp L3
[2022-04-23 08:47] LABS: Differential Comment SCANNED; Reactive Lymphocyte 1+
[2022-04-23] MEDS: Clopidogrel Bisulfate 75 MG Tablet PO (09:48)
[2022-04-23] MEDS: Lisinopril 10 MG Tablet PO (09:48)
--- NOTE | 2022-04-23 10:30 | CASEMGMT ---
According to the [facility] website, the following are in-network tertiary facilities: [facility], [facility], [facility], [facility], [facility], [facility], [facility], [facility], and . [facility]old[facility] JOHNSON CM
--- NOTE | 2022-04-23 10:37 | PN.HOSP_ITS ---
Subjective Subjective Follow-up for non-STEMI and sepsis and respiratory failure. Sepsis resolved. JOHNNY resolved. No fever. Objective Data Objective Data Vital Signs: Vital Signs Temp Pulse Resp BP Pulse Ox O2 Del Method O2 Flow Rate 97.5 F L 92 16 155/109 H 93 Nasal Cannula 2 04/23/22 09:00 04/23/22 09:00 04/23/22 09:00 04/23/22 09:00 04/23/22 09:00 04/23/22 09:00 04/23/22 09:00 FiO2 30 04/23/22 07:30 Oxygen Flow Rate (L/min) 2 Oxygen Delivery Method Nasal Cannula Weight: 222 lb 14.197 oz Body Mass Index (BMI) 28.6 Intake & Output: Intake and Output for Last 24 Hours 04/21/22 04/22/22 04/23/22 23:59 23:59 23:59 Intake Total 2294.07 / 2294.07 981.7 / 981.7 Output Total 1475 / 1675 1300 / 1300 Balance 819.07 / 619.07 -318.3 / -318.3 Lab / Micro Data Result Diagrams: 04/23/22 06:29 04/23/22 06:29 Labs: Laboratory Results - last 24 hr 04/23/22 06:29: Sodium 140, Potassium 4.6, Chloride 104, Carbon Dioxide 31.0, Anion Gap 5, BUN 36 H, Creatinine 0.74, Estim Creat Clear Calc 116.52, Est GFR (MDRD) Af Amer 139, Est GFR (MDRD) Non-Af 115, BUN/Creatinine Ratio 48.7 H, Glucose 138 H, Calcium 9.2, Total Bilirubin 0.30, AST 38 H, ALT 72 H, Alkaline Phosphatase 87, Total Protein 6.6, Albumin 2.4 L, Globulin 4.2, Albumin/Globulin Ratio 0.6 L 04/23/22 06:29: APTT 55.5 H 04/23/22 06:29: WBC 9.0, RBC 4.85, Hgb 14.2, Hct 44.6, MCV 92.0, MCH 29.3, MCHC 31.8 L D, RDW Std Deviation 47.7 H, RDW Coeff of Teressa 13.9, Plt Count 242, MPV 12.3 H, Immature Gran % (Auto) 2.200 H, Neut % (Auto) 70.8 H, Lymph % (Auto) 12.9 L, [place] % (Auto) 7.6, Eos % (Auto) 5.8 H, Baso % (Auto) 0.7, Absolute Neuts (auto) 6.4, Absolute Lymphs (auto) 1.16, Nucleated RBC % 0, Differential Comment SCANNED, Reactive Lymphocytes 1+ Micro: Microbiology 04/19/22 13:30 Sputum, Induced/Lukens Gram Stain - Final 04/19/22 13:30 Sputum, Induced/Lukens Respiratory Culture - Final Haemophilus influenzae 04/19/22 11:55 Blood Culture (Wb) - Left Hand Blood Culture - Preliminary No growth in 48 hours. 04/19/22 11:25 Blood Culture (Wb) - Anticubital Left Blood Culture - Preliminary No growth in 48 hours. 04/19/22 12:00 Urine Catheter - Christie Urine Culture - Final Culture exhibits no growth. 04/19/22 15:15 Mucosa - Nose Respiratory Panel (PCR) - Final Parainfluenza 4 04/19/22 15:15 Urine Catheter - Christie Legionella Antigen - Final 04/19/22 15:15 Urine Catheter - Christie Streptococcus pneumoniae Antigen (M - Final 04/19/22 12:00 Nasal Secretion SARS-CoV-2 Antigen (Rapid) - Final Rhythm Strip Rhythm Strip: Sinus Rhythm Rate: 89 Physical Exam Narrative Seen and examined Patient still feels mild generalized chest tightness. General: Awake, alert and oriented x3. HEENT: Atraumatic, PERRLA, EOMI, Normocephalic Oral: On BiPAP mask Neck: Supple, No JVD, Negative Carotid Bruits Lungs: Air entry diminished bilaterally. Bilateral mild crepitation/wheezing. Mild hypoxia Cardiovascular: Sinus rhythm, normal S1, Normal S2, No murmurs Abdomen: Bowel Sounds good, Soft, Non Tender, Non-Distended : Christie catheter, clear urine no renal angle tenderness. No suprapubic tenderness. Extremities: No edema, Capillary Refill Less than 3 Seconds Skin: Mottled bluish discoloration of feet and toes Musculoskeletal: No Tenderness to Palpation of Joints or Extremities Neurological: Awake, no acute focal neurological finding/deficit. Cranial nerves, 2-12 intact, DTR 2+ Psych/Mental Status: Normal affect Assessment & Plan Assessment/Plan (1) Non-ST elevated myocardial infarction: (2) Community acquired pneumonia: (3) JOHNNY (acute kidney injury): (4) Acute respiratory failure with hypoxia and hypercapnia: (5) Sepsis with acute organ dysfunction without septic shock: PLAN: Plan This 61-year-old question gentleman admitted with acute combined respiratory failure, features suggestive of sepsis and non-STEMI 1. Acute combined hypoxic and hypercarbic respiratory failure probably due to viral parainfluenza 4 superimposed with Haemophilus influenzae bacterial pneumonia and COPD exacerbation with history of stage III gold COPD: Patient is being admitted in ICU. Pulmonary office visit note reviewed. Last PFT in April 2020 shows a reversible very severe mixed ventilatory defect with preserved DLCO. Compared to previous study significant reduction in lung volume by 38%. FEV1 35% predicted. No significant bronchodilator response. Patient is intubated. ABG reviewed. 7.20/66/116/5 on 65 % FiO2/450/5. ABG suggestive of acute respiratory acidosis as bicarb is normal at 26 on BMP. 04/20: Patient had fever T-max 101.1 Fahrenheit last evening. Intelligence Research Specialist consult reviewed. Repeat ABG reviewed. pH 7.21/65/87/26 at 45% FiO2, 450/5. Vent setting optimized. Vent management as per farm facility manager. Repeat ABG shows slight improvement in pH and PCO2. 04/21: Patient extubated on BiPAP 30% FiO2. Mild respiratory distress. 04/22: Patient is saturating well on 2 L of oxygen, BiPAP at night. Transferred to PCU. 04/23: Discussed with family medicine resident Dr. Bajwa and Dr. Tapia. Dr. Tapia limiting cardiac cath. Patient had breakfast in the morning, n.p.o. kidney function normal. Lisinopril discontinued and started on amlodipine and Coreg. This was communicated to the patient 2. Sepsis most likely due to pneumonia: The patient presented with sepsis most likely due to pneumonia with acute sepsis-related organ dysfunction as evidenced by acute combined respiratory failure, lactic acidosis and JOHNNY although creatinine is not more than 2.0. In ED, blood pressure was high 212/111, decreased due to propofol drip. Patient on broad-spectrum antibiotic IV Zosyn. 04/19: Repeat lactic acid normal. Urinary antigens are negative. Respiratory panel shows parainfluenza 4. Urinary antigens and rapid SARS-CoV-2 antigen negative. MRSA PCR negative. Blood culture respiratory culture pending. 04/21: Sputum culture preliminary shows GNR, possible haemophilus influenza. Continue antibiotic. 04/22: Sputum culture shows beta-lactamase Haemophilus influenzae. Antibiotic Zosyn narrowed down to ceftriaxone 1 g daily. 3. Non-STEMI probably due to type II demand ischemia from sepsis: Troponins are high. EKG shows sinus tachycardia and Q waves in inferior leads. Cycle troponin. Patient empirically on IV heparin drip and aspirin. Dry Room Operator consulted. 2D echo is ordered 04/20: Discussed with the family medicine resident on 04/19. Plavix added. I also talked to the patient's son and in the evening of 04/19. Patient's son is orthopedic surgeon in [place]. Explained about the possible causes of high troponin due to type II demand ischemia. His son wanted PE to be ruled out although patient is empirically on IV heparin for non-STEMI. BNP 243, and CK are high. 2D echo pending. Dry Room Operator consult reviewed and appreciated. At present not candidate for invasive cardiac cath because of acute respiratory failure on vent and acute kidney injury. 04/22: 2D echo reported EF 55%, technically difficult study. Severe posterior, inferior and inferior apical hypokinesis. Overall suggestive of non-STEMI with preserved EF. 4. JOHNNY probably prerenal or sepsis: Patient baseline creatinine runs around 1.0, last one 0.9 in July 2020. Admitted with BUN/creatinine 24/1.7. IV fluid normal saline. Patient has Christie catheter monitor intake and output. If kidney function does not improve, will need renal ultrasound and nephrology consult. 04/20: BUN/creatinine high. JOHNNY probably prerenal with possibility of ATN from sepsis. Kidneys and bladder ultrasound and nephrology consult requested. 04/21: Creatinine downtrending 1.77.Hyperkalemia, K6.4, bicarb and anion gap normal. Patient had about 6 800 mL urine output. 04/22: BUN 42, creatinine 1.06. JOHNNY resolved. 04/23: Creatinine 0.7. Discussed with repairer veneer sheet. Antihypertensive medicine changed as mentioned above. Patient good for cardiac cath. 5. Stage III severe COPD with asthma and continued chronic smoking: Bronchodilator, IV Solu-Medrol and antibiotics as mentioned above. Patient not adherent into pulmonary clinic visit. 6. Hypertension: Currently blood pressure is in normal range. 04/20: Blood pressure in systolic 100 probably due to sedatives. 04/21: Blood pressure is high. Lisinopril 10 mg started. At home, patient was on lisinopril 20 mg daily. Gradually titrate up as tolerated by patient's kidney function. 7. Hyperglycemia: Glucose is 210. Accu-Chek before meals and at bedtime and cover with Humalog sliding scale. Patient does not have history of diabetes mellitus. A1c tomorrow AM. Glucose was 83 in July 2020 in [facility] VTE prophylaxis, high risk. On IV heparin drip. Total time of the visit including total time spent in counseling or coordination of care, (more than 50% of the total time, spent in obtaining medical information from nurses and other ancillary care providers,explaining to the patient about labs, imaging, diagnosis and management of active complex medical conditions), discussion with consultants, review of labs and imaging is 45 minutes. Living will/advanced directive/end of life care: Patient does not have living will or advanced directive. After discussion of benefits/risks procedures involved with full code, DNR CC arrest and DNR CC, said continue full code Patient's does want artificial life support including intubation, tube feed, ventilator and/chest compression, central venous catheter, vasopressor and DC shock if needed Total time spent in [id number] encounter in discussion of advanced directive 16 minutes. Microbiology Past 72 Hours 04/19/22 13:30 Sputum, Induced/Lukens Gram Stain - Final 04/19/22 13:30 Sputum, Induced/Lukens Respiratory Culture - Final Haemophilus influenzae 04/19/22 11:55 Blood Culture (Wb) - Left Hand Blood Culture - Preliminary No growth in 48 hours. 04/19/22 11:25 Blood Culture (Wb) - Anticubital Left Blood Culture - Preliminary No growth in 48 hours. 04/19/22 12:00 Urine Catheter - Christie Urine Culture - Final Culture exhibits no growth. 04/19/22 15:15 Mucosa - Nose Respiratory Panel (PCR) - Final Parainfluenza 4 Laboratory Results 04/23/22 06:29: Sodium 140, Potassium 4.6, Chloride 104, Carbon Dioxide 31.0, Anion Gap 5, BUN 36 H, Creatinine 0.74, Estim Creat Clear Calc 116.52, Est GFR (MDRD) Af Amer 139, Est GFR (MDRD) Non-Af 115, BUN/Creatinine Ratio 48.7 H, Glucose 138 H, Calcium 9.2, Total Bilirubin 0.30, AST 38 H, ALT 72 H, Alkaline Phosphatase 87, Total Protein 6.6, Albumin 2.4 L, Globulin 4.2, Albumin/Globulin Ratio 0.6 L 04/23/22 06:29: APTT 55.5 H 04/23/22 06:29: WBC 9.0, RBC 4.85, Hgb 14.2, Hct 44.6, MCV 92.0, MCH 29.3, MCHC 31.8 L D, RDW Std Deviation 47.7 H, RDW Coeff of Teressa 13.9, Plt Count 242, MPV 12.3 H, Immature Gran % (Auto) 2.200 H, Neut % (Auto) 70.8 H, Lymph % (Auto) 12.9 L, [place] % (Auto) 7.6, Eos % (Auto) 5.8 H, Baso % (Auto) 0.7, Absolute Neuts (auto) 6.4, Absolute Lymphs (auto) 1.16, Nucleated RBC % 0, Differential Comment SCANNED, Reactive Lymphocytes 1+
--- NOTE | 2022-04-23 10:40 | PN.RENAL_ITS ---
Subjective Subjective Following for JOHNNY Sitting in chair, denies any complaints. at bedside. Objective Data Objective Data Vital Signs: Vital Signs Temp Pulse Resp BP Pulse Ox O2 Del Method O2 Flow Rate 97.5 F L 92 16 155/109 H 93 Nasal Cannula 2 04/23/22 09:00 04/23/22 09:00 04/23/22 09:00 04/23/22 09:00 04/23/22 09:00 04/23/22 09:00 04/23/22 09:00 FiO2 30 04/23/22 07:30 Oxygen Flow Rate (L/min) 2 Oxygen Delivery Method Nasal Cannula Weight: 101.1 kg Body Mass Index (BMI) 28.6 Intake & Output: Intake and Output for Last 24 Hours 04/21/22 04/22/22 04/23/22 23:59 23:59 23:59 Intake Total 2294.07 / 2294.07 981.7 / 981.7 Output Total 1475 / 1675 1300 / 1300 Balance 819.07 / 619.07 -318.3 / -318.3 Lab / Micro Data Result Diagrams: 04/23/22 06:29 04/23/22 06:29 Labs: Laboratory Results - last 24 hr 04/23/22 06:29: Sodium 140, Potassium 4.6, Chloride 104, Carbon Dioxide 31.0, Anion Gap 5, BUN 36 H, Creatinine 0.74, Estim Creat Clear Calc 116.52, Est GFR (MDRD) Af Amer 139, Est GFR (MDRD) Non-Af 115, BUN/Creatinine Ratio 48.7 H, Glucose 138 H, Calcium 9.2, Total Bilirubin 0.30, AST 38 H, ALT 72 H, Alkaline Phosphatase 87, Total Protein 6.6, Albumin 2.4 L, Globulin 4.2, Albumin/Globulin Ratio 0.6 L 04/23/22 06:29: APTT 55.5 H 04/23/22 06:29: WBC 9.0, RBC 4.85, Hgb 14.2, Hct 44.6, MCV 92.0, MCH 29.3, MCHC 31.8 L D, RDW Std Deviation 47.7 H, RDW Coeff of Teressa 13.9, Plt Count 242, MPV 12.3 H, Immature Gran % (Auto) 2.200 H, Neut % (Auto) 70.8 H, Lymph % (Auto) 12.9 L, [place] % (Auto) 7.6, Eos % (Auto) 5.8 H, Baso % (Auto) 0.7, Absolute Neuts (auto) 6.4, Absolute Lymphs (auto) 1.16, Nucleated RBC % 0, Differential Comment SCANNED, Reactive Lymphocytes 1+ Micro: Microbiology 04/19/22 13:30 Sputum, Induced/Lukens Gram Stain - Final 04/19/22 13:30 Sputum, Induced/Lukens Respiratory Culture - Final Haemophilus influenzae 04/19/22 11:55 Blood Culture (Wb) - Left Hand Blood Culture - Preliminary No growth in 48 hours. 04/19/22 11:25 Blood Culture (Wb) - Anticubital Left Blood Culture - Preliminary No growth in 48 hours. 04/19/22 12:00 Urine Catheter - Christie Urine Culture - Final Culture exhibits no growth. 04/19/22 15:15 Mucosa - Nose Respiratory Panel (PCR) - Final Parainfluenza 4 04/19/22 15:15 Urine Catheter - Christie Legionella Antigen - Final 04/19/22 15:15 Urine Catheter - Christie Streptococcus pneumoniae Antigen (M - Final 04/19/22 12:00 Nasal Secretion SARS-CoV-2 Antigen (Rapid) - Final Rhythm Strip Rhythm Strip: Sinus Rhythm Rate: 89 Physical Exam Narrative Appearance: Alert and oriented x3, no apparent distress HEENT: Atraumatic, normocephalic. Mucous membranes moist. Heart: Normal S1, S2. No rubs or murmurs. Lungs: Clear anteriorly Abdomen: Normal bowel sounds, soft, nontender Extremities: No clubbing or cyanosis. No bilateral lower extremity edema Skin: Warm and dry, no rash. Assessment & Plan Assessment/Plan (1) JOHNNY (acute kidney injury): PLAN: - Nonoliguric JOHNNY likely due to prerenal azotemia that may have evolved to ischemic ATN given transient hypotension and prior use of lisinopril. Serum creatinine 1.7 mg/dL on admission, peaked at 2.75 mg/dL and today has improved to 0.74mg/dL. Baseline renal function is presumably normal. Serum creatinine was 0.91 mg/dL i n July 2020 Urinalysis showed high specific gravity without glucosuria which also suggests volume depletion. The patient does have proteinuria without prior history of diabetes, low suspicion for glomerulonephritis because there is no significant RBCs. Urine sodium 11, urine protein to creatinine ratio 370 mg/g. Renal ultrasound did not show any hydronephrosis, calculi or mass. (2) Acute respiratory failure with hypoxia and hypercapnia: PLAN: Extubated 04/21, management as per pulmonary/critical care medicine. On Solu-Medrol, Zosyn, bronchodilators. Blood cultures so far no growth (3) HTN (hypertension): (4) Non-ST elevated myocardial infarction: PLAN: Cardiology following Echo EF 55%, technically difficult study, unable to assess diastolic function, severe posterior, inferior and inferior apical hypokinesis Lisinopril was initially on hold due to JOHNNY. Creatinine improved to 1.06 mg/dL as of 04/22 and he was restarted back on lisinopril 10 mg. Today SCr 0.74mg/dL. Possibly patient to have heart cath and therefore recommend holding lisinopril due to recent JOHNNY and adding different antihypertensive for blood pressure control. We will continue to monitor creatinine trends. Discussed with Dr. Driscoll
[2022-04-23] MEDS: Ceftriaxone 1 GM/50 ML BAG IV (10:49)
[2022-04-23] MEDS: amLODIPine 5 MG Tablet PO (11:03)
[2022-04-23] MEDS: Carvedilol 6.25 MG Tablet PO (11:03)
[2022-04-23] MEDS: 0.9% Normal Saline 1,000 ML 100 ML IV (12:53)
--- NOTE | 2022-04-23 12:53 | CL.D_ITS ---
Patient Name: MELISSA WANG Study Date: 04/23/2022 Performing: Iban Tapia MD Ht: 73 inches 185 cm : 1960 Wt: 223.2 lbs 101.1 kg Age: 61 Gender: male BSA: 2.25 PROCEDURE(S) PERFORMED DC01-(48096)LHC/COR/LV CLINICAL PROFILE AND INDICATIONS Indications: ACS > 24 hrs Heart Failure: None Stress/Imaging Stress/Image Study Performed: No CAD Presentations: Other: NSTEMI, respiratory failure due to COPD CONCLUSIONS Multivessel CAD. No significant . Normal LVEDP RECOMMENDATIONS CT surgery consult for possible CABG DESCRIPTION OF PROCEDURE The patient arrived to the procedure lab. The risks and benefits of the procedure as well as a full description of our services here and current unavailability of surgical backup were fully explained to the patient and/or their significant other prior to the catheterization. The Timeout was completed, verifying the correct patient and procedure. The patient's procedural site was prepped and draped in the usual fashion. Local anesthetic was given subcutaneously to right radial region with Lidocaine 2%. Using a modified Seldinger technique, arterial access was obtained via the right radial artery, a 6Fr sheath was inserted. Left Coronary Artery selective angiography was performed in multiple views using a 5 Fr. JL3.5 catheter. LV to AO pullback pressures were then recorded. Right Coronary Artery selective angiography was then performed in multiple views using a 5 Fr. JR 4 catheter.The arterial sheath was pulled and a TR Band was applied for hemostasis CORONARY ANGIOGRAPHY DOMINANCE: Right Dominant LEFT HEART ASSESSMENT LEFT MAIN: 50 % Stenosis LEFT ANTERIOR DESCENDING ARTERY: OSTIAL LAD: 30-40 % Stenosis PROX LAD: 60 % Stenosis MID LAD: 80 % Stenosis CIRCUMFLEX ARTERY: PROX CIRC: 95 % Stenosis OM 1: Ostial - is occluded. Fills via collaterals RIGHT CORONARY ARTERY: PROX RCA: is occluded. RPL and RPDA visualized via collaterals from the left system VALVE FINDINGS: No Aortic Valve Stenosis COMPLICATIONS No Complications PROCEDURE MEDICATIONS Versed 1 mg IV Fentanyl 25 mcg IV Oxygen: 2 L/min via nasal cannula Heparin given IA 04/23/2022 11:40:20 Verapamil 2.5mg, Ntg 100mcgs, 3000 units of Heparin given IA 04/23/2022 11:40:20 SUMMARY OF HEMODYNAMIC DATA Time AIR REST ECG 11:21:57 AO 151/101 (124) SA 11:42:22 LV 135/7, 23 11:51:13 AOp 119/3 (48) 11:51:26 LVp 122/2, 10 11:51:28 AOp 145/84 (109) 11:51:35 AO 145/40 (73) 11:52:27 Signed By Iban Tapia MD On 04/23/2022 12:52:35 Iban Tapia MD
--- NOTE | 2022-04-23 13:41 | PCM.DC.SUM ---
Providers Date of Admission: 04/19/22 Date of Discharge: 04/23/22 Primary Care Physician: Dr. Brett Hernandez MD Consultations 04/19/22 14:15 Consult: Cardiology Routine Consulting Provider: Delfina Bajwa Reason for Consult: NSTEMI EMERGENT Consult: No Notified: Yes Date Notified: 04/19/22 Time Notified: 13:00 Method of Notification: ED Physician Initiated Method of Consult:: In-Person 04/19/22 14:19 Consult: Supervisor [employer] / Pulmonary Medicine Routine Consulting Provider: Pulmonary Medicine [facility] Reason for Consult: INTUBATED, ACUTE RESP FAILURE EMERGENT Consult: No Notified: Yes Date Notified: 04/19/22 Time Notified: 14:19 Method of Notification: Text 04/20/22 06:55 Consult: Nephrology Routine Consulting Provider: Eh Marina Reason for Consult: JOHNNY EMERGENT Consult: No Notified: Yes Date Notified: 04/20/22 Time Notified: 08:47 Method of Notification: Answering Service Method of Consult:: In-Person Reason For Visit: ACUTE RESP HYPOXIC FAILURE Diagnosis Discharge Diagnosis (1) JOHNNY (acute kidney injury): Status: Acute Code(s): N17.9 - Acute kidney failure, unspecified (2) Acute respiratory failure with hypoxia and hypercapnia: Status: Acute Code(s): J96.01 - Acute respiratory failure with hypoxia; J96.02 - Acute respiratory failure with hypercapnia (3) HTN (hypertension): Status: Chronic Code(s): I10 - Essential (primary) hypertension (4) Non-ST elevated myocardial infarction: Status: Acute Code(s): I21.4 - Non-ST elevation (NSTEMI) myocardial infarction (5) Community acquired pneumonia: Status: Acute Code(s): J18.9 - Pneumonia, unspecified organism Medications at Discharge Home Medications albuterol sulfate 90 mcg/actuation aerosol inhaler (ProAir HFA) 1 puff inhalation Q6H PRN Shortness Of Breath 07/11/19 atorvastatin 10 mg tablet 10 mg PO DAILY 07/11/19 lisinopril 20 mg tablet 20 mg PO DAILY 07/11/19 fluticasone fur. 100 mcg-umeclid 62.5 mcg-vilant 25 mcg inhalat.powder (Trelegy Ellipta) 1 inh inhalation DAILY #60 ea 10/20/20 montelukast 10 mg tablet 10 mg PO QPM #90 tabs 05/01/20 Hospital Course Summary of Care Provided Hospital Course: This 61-year-old question gentleman admitted with acute combined respiratory failure, features suggestive of sepsis and non-STEMI 1. Acute combined hypoxic and hypercarbic respiratory failure probably due to viral parainfluenza 4 superimposed with Haemophilus influenzae bacterial pneumonia and COPD exacerbation with history of stage III gold COPD: Patient is being admitted in ICU. Pulmonary office visit note reviewed. Last PFT in April 2020 shows a reversible very severe mixed ventilatory defect with preserved DLCO. Compared to previous study significant reduction in lung volume by 38%. FEV1 35% predicted. No significant bronchodilator response. Patient is intubated. ABG reviewed. 7.20/66/116/5 on 65 % FiO2/450/5. ABG suggestive of acute respiratory acidosis as bicarb is normal at 26 on BMP. 04/20: Patient had fever T-max 101.1 Fahrenheit last evening. Supervisor [employer] consult reviewed. Repeat ABG reviewed. pH 7.21/65/87/26 at 45% FiO2, 450/5. Vent setting optimized. Vent management as per customer strategy manager. Repeat ABG shows slight improvement in pH and PCO2. 04/21: Patient extubated on BiPAP 30% FiO2. Mild respiratory distress. 04/22: Patient is saturating well on 2 L of oxygen, BiPAP at night. Transferred to PCU. 04/23: Discussed with railcar mechanic Dr. Bajwa and Dr. Tapia. Dr. Tapia date cardiac cath. Patient had breakfast in the morning, n.p.o. kidney function normal. Lisinopril discontinued and started on amlodipine and Coreg. This was communicated to the patient. LHC findings, left main 50%, ostial LAD 30 to 40%, proximal 60%, mid 80%. Circumflex proximal 95%, OM1 ostial occluded fills via collaterals. Proximal RCA occluded. RPL and RPDA fills from collaterals from left system. No aortic valve. Based on the above findings, patient was recommended for evaluation for CABG. Dr. Tapia talked to Dr. Jimenez and patient was excepted to the hospitalist service. Transfer paperwork signed. 2. Sepsis most likely due to pneumonia: The patient presented with sepsis most likely due to pneumonia with acute sepsis-related organ dysfunction as evidenced by acute combined respiratory failure, lactic acidosis and JOHNNY although creatinine is not more than 2.0. In ED, blood pressure was high 212/111, decreased due to propofol drip. Patient on broad-spectrum antibiotic IV Zosyn. 04/19: Repeat lactic acid normal. Urinary antigens are negative. Respiratory panel shows parainfluenza 4. Urinary antigens and rapid SARS-CoV-2 antigen negative. MRSA PCR negative. Blood culture respiratory culture pending. 04/21: Sputum culture preliminary shows GNR, possible haemophilus influenza. Continue antibiotic. 04/22: Sputum culture shows beta-lactamase Haemophilus influenzae. Antibiotic Zosyn narrowed down to ceftriaxone 1 g daily. 04/23: Continue antibiotic for total duration of 7 days, today fifth day of antibiotic. On IV ceftriaxone. 3. Non-STEMI probably due to type II demand ischemia from sepsis: Troponins are high. EKG shows sinus tachycardia and Q waves in inferior leads. Cycle troponin. Patient empirically on IV heparin drip and aspirin. Waste Duster consulted. 2D echo is ordered 04/20: Discussed with the railcar mechanic on 04/19. Plavix added. I also talked to the patient's son and in the evening of 04/19. Patient's son is orthopedic surgeon in [place]. Explained about the possible causes of high troponin due to type II demand ischemia. His son wanted PE to be ruled out although patient is empirically on IV heparin for non-STEMI. BNP 243, and CK are high. 2D echo pending. Waste Duster consult reviewed and appreciated. At present not candidate for invasive cardiac cath because of acute respiratory failure on vent and acute kidney injury. 04/22: 2D echo reported EF 55%, technically difficult study. Severe posterior, inferior and inferior apical hypokinesis. Overall suggestive of non-STEMI with preserved EF. 4. JOHNNY probably prerenal or sepsis: Patient baseline creatinine runs around 1.0, last one 0.9 in July 2020. Admitted with BUN/creatinine 24/1.7. IV fluid normal saline. Patient has Christie catheter monitor intake and output. If kidney function does not improve, will need renal ultrasound and nephrology consult. 04/20: BUN/creatinine high. JOHNNY probably prerenal with possibility of ATN from sepsis. Kidneys and bladder ultrasound and nephrology consult requested. 04/21: Creatinine downtrending 1.77.Hyperkalemia, K6.4, bicarb and anion gap normal. Patient had about 6 800 mL urine output. 04/22: BUN 42, creatinine 1.06. JOHNNY resolved. 04/23: Creatinine 0.7. Discussed with land management forester. Antihypertensive medicine changed as mentioned above. Patient good for cardiac cath. 5. Stage III severe COPD with asthma and continued chronic smoking: Bronchodilator, IV Solu-Medrol and antibiotics as mentioned above. Patient not adherent into pulmonary clinic visit. Recommended outpatient follow-up with Dr. Mccallum 6. Hypertension: Currently blood pressure is in normal range. 04/20: Blood pressure in systolic 100 probably due to sedatives. 04/21: Blood pressure is high. 04/23: Blood pressure medication adjusted as mentioned above. Lisinopril discontinued. 7. Hyperglycemia: Glucose is 210. Accu-Chek before meals and at bedtime and cover with Humalog sliding scale. Patient does not have history of diabetes mellitus. A1c tomorrow AM. Glucose was 83 in July 2020 in [facility] VTE prophylaxis, high risk. On IV heparin drip. Transfer process discussed with the patient in the room and agreeable for [facility] for evaluation for CABG. Discussed with the case making machine operator and nursing staff. Transfer papers signed. Total time spent, exact 35 minutes on discharge meds reconciliation, examination, coordination of care with nurses and ancillary staff, review of imaging and blood test and discussion with the patient on follow-up instructions. Total time of the visit including total time spent in counseling or coordination of care, (more than 50% of the total time, spent in obtaining medical information from nurses and other ancillary care providers,explaining to the patient about labs, imaging, diagnosis and management of active complex medical conditions), discussion with consultants, review of labs and imaging is 45 minutes. Living will/advanced directive/end of life care: Patient does not have living will or advanced directive. After discussion of benefits/risks procedures involved with full code, DNR CC arrest and DNR CC, said continue full code Patient's does want artificial life support including intubation, tube feed, ventilator and/chest compression, central venous catheter, vasopressor and DC shock if needed Total time spent in [id number] encounter in discussion of advanced directive 16 minutes. Microbiology Past 72 Hours 04/19/22 13:30 Sputum, Induced/Lukens Gram Stain - Final 04/19/22 13:30 Sputum, Induced/Lukens Respiratory Culture - Final Haemophilus influenzae 04/19/22 11:55 Blood Culture (Wb) - Left Hand Blood Culture - Preliminary No growth in 48 hours. 04/19/22 11:25 Blood Culture (Wb) - Anticubital Left Blood Culture - Preliminary No growth in 48 hours. 04/19/22 12:00 Urine Catheter - Christie Urine Culture - Final Culture exhibits no growth. 04/19/22 15:15 Mucosa - Nose Respiratory Panel (PCR) - Final Parainfluenza 4 Laboratory Results 04/23/22 06:29: Sodium 140, Potassium 4.6, Chloride 104, Carbon Dioxide 31.0, Anion Gap 5, BUN 36 H, Creatinine 0.74, Estim Creat Clear Calc 116.52, Est GFR (MDRD) Af Amer 139, Est GFR (MDRD) Non-Af 115, BUN/Creatinine Ratio 48.7 H, Glucose 138 H, Calcium 9.2, Total Bilirubin 0.30, AST 38 H, ALT 72 H, Alkaline Phosphatase 87, Total Protein 6.6, Albumin 2.4 L, Globulin 4.2, Albumin/Globulin Ratio 0.6 L 04/23/22 06:29: APTT 55.5 H 04/23/22 06:29: WBC 9.0, RBC 4.85, Hgb 14.2, Hct 44.6, MCV 92.0, MCH 29.3, MCHC 31.8 L D, RDW Std Deviation 47.7 H, RDW Coeff of Teressa 13.9, Plt Count 242, MPV 12.3 H, Immature Gran % (Auto) 2.200 H, Neut % (Auto) 70.8 H, Lymph % (Auto) 12.9 L, [place] % (Auto) 7.6, Eos % (Auto) 5.8 H, Baso % (Auto) 0.7, Absolute Neuts (auto) 6.4, Absolute Lymphs (auto) 1.16, Nucleated RBC % 0, Differential Comment SCANNED, Reactive Lymphocytes 1+ Physical Exam Narrative Seen and examined Shortness of breath better. Overall feels improved. No chest pain. General: Awake, alert and oriented x3. HEENT: Atraumatic, PERRLA, EOMI, Normocephalic Oral: On BiPAP mask Neck: Supple, No JVD, Negative Carotid Bruits Lungs: Air entry diminished bilaterally. Bilateral mild crepitation/wheezing. Mild hypoxia Cardiovascular: Sinus rhythm, normal S1, Normal S2, No murmurs Abdomen: Bowel Sounds good, Soft, Non Tender, Non-Distended : Christie catheter, clear urine no renal angle tenderness. No suprapubic tenderness. Extremities: No edema, Capillary Refill Less than 3 Seconds Skin: Mottled bluish discoloration of feet and toes Musculoskeletal: No Tenderness to Palpation of Joints or Extremities Neurological: Awake, no acute focal neurological finding/deficit. Cranial nerves, 2-12 intact, DTR 2+ Psych/Mental Status: Normal affect Weight / BMI Weight Weight: 222 lb 14.197 oz Body Mass Index (BMI) 28.6 ABG / Lab / Microbiology Data Result Diagrams: 04/23/22 06:29 04/23/22 06:29 Laboratory: Laboratory Results - last 24 hr 04/23/22 06:29: Sodium 140, Potassium 4.6, Chloride 104, Carbon Dioxide 31.0, Anion Gap 5, BUN 36 H, Creatinine 0.74, Estim Creat Clear Calc 116.52, Est GFR (MDRD) Af Amer 139, Est GFR (MDRD) Non-Af 115, BUN/Creatinine Ratio 48.7 H, Glucose 138 H, Calcium 9.2, Total Bilirubin 0.30, AST 38 H, ALT 72 H, Alkaline Phosphatase 87, Total Protein 6.6, Albumin 2.4 L, Globulin 4.2, Albumin/Globulin Ratio 0.6 L 04/23/22 06:29: APTT 55.5 H 04/23/22 06:29: WBC 9.0, RBC 4.85, Hgb 14.2, Hct 44.6, MCV 92.0, MCH 29.3, MCHC 31.8 L D, RDW Std Deviation 47.7 H, RDW Coeff of Teressa 13.9, Plt Count 242, MPV 12.3 H, Immature Gran % (Auto) 2.200 H, Neut % (Auto) 70.8 H, Lymph % (Auto) 12.9 L, [place] % (Auto) 7.6, Eos % (Auto) 5.8 H, Baso % (Auto) 0.7, Absolute Neuts (auto) 6.4, Absolute Lymphs (auto) 1.16, Nucleated RBC % 0, Differential Comment SCANNED, Reactive Lymphocytes 1+ Microbiology: Microbiology 04/19/22 13:30 Sputum, Induced/Lukens Gram Stain - Final 04/19/22 13:30 Sputum, Induced/Lukens Respiratory Culture - Final Haemophilus influenzae 04/19/22 11:55 Blood Culture (Wb) - Left Hand Blood Culture - Preliminary No growth in 48 hours. 04/19/22 11:25 Blood Culture (Wb) - Anticubital Left Blood Culture - Preliminary No growth in 48 hours. 04/19/22 12:00 Urine Catheter - Christie Urine Culture - Final Culture exhibits no growth. 04/19/22 15:15 Mucosa - Nose Respiratory Panel (PCR) - Final Parainfluenza 4 04/19/22 15:15 Urine Catheter - Christie Legionella Antigen - Final 04/19/22 15:15 Urine Catheter - Christie Streptococcus pneumoniae Antigen (M - Final 04/19/22 12:00 Nasal Secretion SARS-CoV-2 Antigen (Rapid) - Final Meaningful Use Info Meaningful Use Diagnoses (Choose all that apply): None applicable Discharge Plan Admission Admit Date/Time: 04/19/22 12:29 Attending Provider: Jay Driscoll Primary Care Provider: Brett Hernandez Consulting Providers: Delfina Bajwa ; Piter Mccallum ; Jamar Asif ; Santos Poole ; Kenji Hartmann ; Emma Mojica TEXTILE BROKER ; Eh Marina Discharge Orders/Prescriptions Prescriptions: No Action atorvastatin 10 mg tablet 10 mg PO DAILY lisinopril 20 mg tablet 20 mg PO DAILY albuterol sulfate [ProAir HFA] 90 mcg/actuation HFA aerosol inhaler 1 puff INHALATION Q6H PRN (Reason: Shortness Of Breath) montelukast 10 mg tablet 10 mg PO QPM Qty: 90 3RF Trelegy Ellipta 100-62.5-25 mcg blister with device 1 inh inhalation DAILY Qty: 60 5RF Referrals / Follow Up: Brett Hernandez MD [Primary Care Provider] - Disposition Discharge Orders: Discharge Patient (Routine); Ordered 04/23/22 Ordered By: Dr. Jay Driscoll Charges/Coding Visit Charges Inpatient E&M: 94496 Disch Hosp
--- NOTE | 2022-04-23 13:47 | NURSING ---
This RN called and gave report to ALEX Balbuena at [facility].
== END 2022-04-23 19:40 | disposition short-term general hospital (02) | DRG 871 ==
LOC: ED 12:17 → ICU 12:44 → PCU 04-22 15:04
PROVIDERS: Internal Medicine Critical Care Medicine; Internal Medicine Nephrology; Admitting Provider Internal Medicine; Emergency Provider Emergency Medicine; PCP Family Medicine; Visit Provider Internal Medicine
DX: A41.3 Sepsis due to Hemophilus influenzae (principal); N17.0 Acute kidney failure with tubular necrosis; J96.01 Acute respiratory failure with hypoxia; J96.02 Acute respiratory failure with hypercapnia; J14 Pneumonia due to Hemophilus influenzae; I21.A1 Myocardial infarction type 2; J44.0 Chronic obstructive pulmonary disease with (acute) lower respiratory infection; J44.1 Chronic obstructive pulmonary disease with (acute) exacerbation; E87.3 Alkalosis; E87.4 Mixed disorder of acid-base balance; E66.01 Morbid (severe) obesity due to excess calories; E78.5 Hyperlipidemia, unspecified; I10 Essential (primary) hypertension; E87.5 Hyperkalemia; F17.210 Nicotine dependence, cigarettes, uncomplicated; I25.10 Atherosclerotic heart disease of native coronary artery without angina pectoris; B34.8 Other viral infections of unspecified site; R80.9 Proteinuria, unspecified; R73.9 Hyperglycemia, unspecified; Z68.28 Body mass index [BMI] 28.0-28.9, adult; Z79.01 Long term (current) use of anticoagulants; Z79.02 Long term (current) use of antithrombotics/antiplatelets; Z79.82 Long term (current) use of aspirin; Z79.899 Other long term (current) drug therapy
CPT/HCPCS: 31500; 31720; 36415; 36600; 71045; 74018; 76770; 80053; 80061; 81001; 82550; 82570; 82803; 83036; 83605; 83735; 83880; 84100; 84156; 84300; 84443; 84478; 84484; 85025; 85027; 85610; 85730; 87040; 87070; 87077; 87086; 87205; 87449; 87633; 87641; 87811; 93005; 93306; 93458; 94002; 94003; 94640; 94660; 94667; 94668; 94762; 97110; 97162; 97166; 97530; 97535; 97802; 97803; 99152; 99153; 99251; 99285; J7030; J7040; J7050; J7120; Q9957; Q9967; A4216; C1769; C1894; C8929; G0463; J0696; J3010

== ENCOUNTER → 2022-06-20 | Outpatient (CLI) | payer OTHER, SELFPAY ==
--- NOTE | 2022-06-20 08:02 | PCM.CR.HP2 ---
CR - History & Physical - General Arrival date:: 06/20/22 Arrival time:: 08:02 Date of Referral:: 04/30/22 Date of CR Evaluation:: 06/20/22 Referring Physician: Dr. Bajwa Primary Diagnosis: CABG - History of Present Cardiac Event Onset Date: Enter Onset Date of cardiac illnesses in Comment field below Coronary Artery Bypass Graft:: Yes - FLETCHER to LAD, SVG to diagonal 1, SVG to OM2-PDA - Sleep Disorder Evaluation Hx of Sleep Apnea: No Do you snore loudly (louder than talking or can be heard through closed doors)?: No Do you often feel tired/ fatigued/ sleepy during daytime?: No Has anyone observed you stop breathing during sleep?: No History of Hypertension (for STOP score): Yes STOP Results: Negative - Medications Home Medications: Ambulatory Orders Medication Instructions Recorded albuterol sulfate 90 mcg/actuation 1 puff inhalation Q6H PRN 07/11/19 aerosol inhaler (ProAir HFA) Shortness Of Breath montelukast 10 mg tablet 10 mg PO QPM #90 tabs 05/01/20 aspirin 81 mg tablet,delayed 81 mg PO DAILY 06/10/22 release atorvastatin 80 mg tablet 80 mg PO DAILY #90 tabs 06/10/22 clopidogrel 75 mg tablet 75 mg PO DAILY #90 tabs 06/10/22 metoprolol tartrate 25 mg tablet 25 mg PO BID #180 tabs 06/10/22 potassium chloride 20 mEq 20 meq PO DAILY #90 tabs 06/10/22 tablet,extended release(part/cryst) (Klor-Con M) torsemide 20 mg tablet 20 mg PO DAILY #90 tabs 06/10/22 trazodone 100 mg tablet 100 mg PO DAILY 06/10/22 - Allergies Allergies/Adverse Reactions: Allergies No Known Allergies Allergy (Verified 06/10/22 13:24) Advanced Directives - Advanced Directives Power of Assistant Customer Service Manager: No Living Will: No Advance Directives Information Provided: No Advance Directives on File: No DNR Order?:: No Past Medical History - Covid-19 Screening Has a chronic lung disease or moderate to severe asthma:: Yes - Past Medical Illness Medical History: Past Medical History (Last Updated 06/10/22 @ 14:56 by Jaycob Tee APARTMENT COMMUNITY MANAGER, APARTMENT COMMUNITY MANAGER-C) Asthma J45.909 Atherosclerosis of [place] coronary artery of [place] heart without angina pectoris I25.10 CABG x4- 04/30/22; H/O gynecomastia Z87.898 HTN (hypertension) I10 Hyperlipidemia E78.5 Obesity E66.9 Postoperative atrial fibrillation I97.89, I48.91 Seasonal allergies J30.2 - Past Surgical History Surgical History: Past Surgical History (Last Updated 06/10/22 @ 14:55 by Jaycob Tee APARTMENT COMMUNITY MANAGER, APARTMENT COMMUNITY MANAGER-C) History of appendectomy Z90.49 S/P CABG x 4 Onset Date: ~04/30/22 Z95.1 FLETCHER?LAD, SVG?diagonal 1, SVG?OM2?PDA on 04/30/[address] Blas at [facility]; Social History - Smoking History Smoking Status: Former smoker Years Smokin Packs Smoked per Day: 1 Hx Smoking Cessation Date: 04/19/22 - Occupation Occupation (List type of work in comments):: Employed - Hobbies, Recreation, Social Activities Hobbies: None Social Environment - Status Marital Status: - Current Living Arrangements Living Environment:: Spouse - Children How many children do you have?: 3 Do any of your children live nearby?: Yes - Safety Do you feel safe in your surroundings?: Yes - Assistance Do you need any assistance at home?: no Review of Systems - Review of Systems Hints: Right click = Denies ([place]). Left click = Reports ([place]) Review of Present Symptoms: Reports: Shortness of Breath with Exertion, Dizziness/Lightheadedness, Fatigue, Heart Arrhythmia/Irregularities, Appetite - Normal, Sleep - Normal. Denies: Shortness of Breath at Rest, PVD, Operative Discomfort, Angina, Wound Healing, Appetite - Special Diet, Sexual Changes - Pain Is Patient Pain Free?: Yes Risk Factor Assessment - Vital Signs Pulse Ox: 94 Blood Pressure: 78/50 - Pulse Pulse Rate: 74 Pulse Rhythm: Regular - Obesity Height: 6 ft Weight:: 98.43 kg Weight in Pounds: 217.0 lbs Body Mass Index (BMI): 29.4 Nutritional Referral for Obesity: No - Physical Inactivity Physical Inactivity: None - Risk Stratification Risk Guidelines: Lowest Risk: Risk Factor for Smoking, Moderate Risk: Risk Factor for Dyslipidemia, Risk Factor for Diabetes, Risk Factor for Obesity, Risk Factor for Hypertension, Risk Factor for Sedentary Lifestyle, Risk Factor for Depression Motivation - Motivation to Participate On a scale of 1 to 10, how prepared are you to commit to attending program?: 10 What do you see as barriers to successfully being able to complete the program?: nothing What do you see as the benefits of succesfully completing the program? In other words, what do you hope to get out of participating in the program?: improved health Are there issues you are dealing with that will interfere with completing the program?: no Do you have a spouse or signficant other, family or friends who will help support you to complete the program?: yes
[2022-06-20 08:51] VITALS: BP 78/50; PULSE 74; O2SAT 94; BMI 29.4
--- NOTE | 2022-06-20 08:51 | CR.ITP_ITS ---
Diagnosis - General Information Admitting Diagnosis: CABG Personal Learning Style:: Audio/Visual, Demonstration, Group, Individual Preference, Written Stage of change r/t lifestyle modifications:: Contemplation Gave educational material for:: Treating Heart Disease, Emotions & Heart Disease, Stress Management & Relaxation, Sleep Disorders & Heart Disease, How The Heart Works, What it means to have Heart Disease, How Coronary Artery Disease is Diagnosed, Heart Procedures, What Heart Medications Do, Risk Factors & Modifications, Living an Active Life, Nutrition - Education/Goals Cardiac Rehabilitation Goals: 1. Maintain the individual as the primary focus of care. 2. To improve the patient's quality of life. 3. Identification of cardiac risk factors and provide cardiac risk factor management. 4. Enhance the psychosocial status of the patient. 5. Reconditioning enough to allow the patient to resume customary activities. 6. Control symptoms of cardiac disease Personal Goals: Initial Assessment: Improve energy level, Improve muscle strength and endurance, Control risk factors (learn risk factor modification) Scale for measuring improvement of personal goals: Enter appropriate number in Comments. 2 = Unchanged. 3 = Slightly Better. 4 = Moderate Improvement. 5 = Met my Goal - Diagnosis & Disease Process Outcomes/Goals: Pt IDs own risk factors & lifestyle modifications by Session 10, Verbalizes symptoms of angina & response by session 3., Pt independently manages, Other Additional Outcomes/Goals: Plan/Interventions: Assist Pt to ID & engage in lifestyle modification to reduce CVD risk, Instruct on individual risk factors, Review symptoms of angina & emergency actions, Review secondary diagnosis & identify educational needs., Other see comment 30 day Reassessments:: Not Met 30 day Reassessments:: Not Met 30 day Reassessments:: Not Met 30 day Reassessments:: Not Met Final Reassessments:: Not Met - Safety Referral to Physical Therapy: No Referral to [facility] Case Management: No Fall Risk Assessed:: Yes Assistive Devices:: None Exercise - Initial Assessment - Visit Date of Eval: 06/20/22 - initial eval Mets: Pre-: >3 METS for 30 minutes by discharge, >5 METS for 30 minutes by discharge, >7 METS for 30 minutes by discharge, Unable to meet goal due to: (see comment below) - Physician Prescribed Exercise Modalities: Treadmill, Airdyne, NuStep, SciFit, Lateral [place] Frequency: 3x/week for 12 weeks [36 sessions] Intensity: 60-80% of age predicted maximum heart rate reserve Current METSs:: 3 Target Heart Rate:: 96-128 Resting Blood Pressure: 78/50 - Outcomes & Goals Goals:: Verbalizes understanding of THR, RPE & goal METS by session 6, Documents in home exercise log/reports 30 min aerobic 5 day/wk by DC, Demonstrates acc urate pulse taking by DC, Other additional outcome/goals: see below - Intervention & Plan Exercise Program Goals: Instruct on personal THR & RPE, Instruct on MET level & personal MET goal, Show patient to take own pulse /validate performance until accurate, Instruct on home exercise, Other additional plan/int - Physical Activity Home Exercise Physical Activity - Home Exercise: Safe Exercise, Warm-up, Self-monitoring, Cool-Down, Home Exercise > 30 min Daily, Sitting Time <3 hours/daily - Outcomes & Goals Outcomes/Goals: Demonstrates correct Warm-up/exercise Cool-Down (S3) if = 2.5 METs, Verbalizes symptoms of exercise intolerance by Session 3 (S3), Demonstrate safe equipment use (S3) & follows exercise prescrition (6), Other: See below - Intervention & Plan Plan/Intervention: Instruct warm-up & cool-down if exercising at > 2 METs, In struct on symptoms of exercise intolerance & actions to take, Instruct & monitor on saf, Assess intial functional capacity & safety risk, Other See below Nutrition - Initial Assessment - Program Goals Nutrition Program Goals: LDL <100 optimal. 100 - 129 Near optimal. 130 - 159 Borderline High. 160 - 189 High. Total Cholesterol <200 desirable. 200 - 239 Borderline High. >/= 240 High. HDL < 40 Low >/=60 High. Triglycerides <150 desirable. <199 optimal. VlDL 5 - 40. HgbA1C <7%. BMI <25 Patient has diagnosis of Hyperlipidemia (ICD E78)?: Yes - Visit Date of Assessment:: 06/20/22 - initial eval - Cholesterol/Lipids (Other Core Measures) Determine presence & major risk factors that modify LDL goal: Cigarette smoking, Hypertension or hypertensive medication, Low HDL cholesterol <40 mg/dL*, Family history of premature CHD in Male < 55 years: female <65 yearsFa, Age men > 45 years; women >/= 55 years Outcomes/Goals: Pt IDs own risk factors & lifestyle modifications by Session 10, Verbalizes symptoms of angina & response by session 3., Pt independently manages, Other Additional Outcomes/Goals: Intervention/Plan: Advocate for lipid panel cholesterol medication if applicable, Instruct on personal lipid levels & lipid goals/NCEP guidelines, Instruct on cholesterol, Other additional plan/int Referral to dietitian:: No - declines - Diabetes (Other Core Measures) Diabetes Type: Not Applicable - Weight Mgt (Other Care) Height: 6 ft Weight:: 98.43 kg BMI: 29.4 Diagnosis Overweight/Obesity BMI> 30% ICD-10 E66: No Diagnosis High BMI/Morbid Obesity BMI> 35% ICD-10 Z68: No Outcomes/Goals: Pt sets, maintains & shows weight loss goal & trend during rehab, Other additional outcomes/goals Intervention/Plan: Instruct on ideal BMI & set weight loss goal w/patient, Assist pt to ID & incorporate diet changes for weight loss by S9, Refer to Structured Weight Loss program as appropriate, Encourage goal of using 250- 300dcal per session for weight loss, Other additional plan/interventions - Healthy Eating Habits Will attend diet classes:: Yes Outcomes/Goals:: Consume diet rich in vegs,fruits,whole grain/high fiber,fish,lean meat, Limit sat/trans fats,cholesterol & added salts & sugars, Other additional outcome/goals: Intervention/Plan:: Assess current eating habits, Other Additional plan/interventions - Education Gave educational materials for:: Signs & symptoms of hypoglycemia, Signs & symptoms of hyperglycemia, Relate diabetes to coronary artery disease, Healthy eating Nutrition - 30-Day Assessment Nutrition - 60-Day Assessment Nutrition - 90-Day Assessment Nutrition - Final Assessment Core - Initial Assessment - Visit Date of Eval: 06/20/22 - initial eval - Medication Compliance Preventative Medication(s):: Aspirin, Clopidogrel/P2Y12 inhibit, Statin/lipid, Beta samreen H/O mental health issues: depression, anxiety, or addiction?: No Doesn?t believe in the benefits of treatment?: No Believes medications are unnecessary or harmful?: No Has a concern about medication side effects?: No Expresses concern over the cost of medications?: No Outcomes/Goals: Verbalizes medications,desired effect & common side effects @ DC, Pt self-reports following medication regimen, Keeps card in wallet w/medications listed by DC, Other additional outcome/goals: Interventions/plans: Instruct on medication effects & side effects, Review medication list w/patient every two weeks, Instruct importance of taking meds as ordered & assist problem solving, Other additional - Tobacco Use Tobacco Use: Non-smoker - stopped in april How long ago did you quit using tobacco products?: Less than 6 months ago Do you use smokeless tobacco?: No Outcomes/Goals: Smoking cessation achieved or maintained by discharge, Identify aids/strategies for achieving smoking cessation by session 6, Other additional outcome/goals Interventions/plan: Instruct on effects of smoking & provide smoking cessation resource, Assist pt to set quit date & provide encouragement, Assist pt to develop strategies to achieve/maintain quit date, Assist pt w/nicotine replacement & medication for cessation success, Other additional plan/interventions - Hypertension Hypertension Diagnosis:: Hypertension ICD-10 I10 Resting Blood Pressure:: 78/50 [place] [employer] Hypertension Guidelines: [place] [employer] Hypertension Guidelines. Normal BP Less than 120/80. Elevated BP 120/80. Hypertension Stage 1: BP 130-139/80-89. Hypertesnion Stage 2: BP 140 or higher/90 or higher. Hypertension Crisis: BP higher than 180/120 Outcomes/Goals: Able to verbalize/achieve optimal blood pressure <130/80, Incorporates diet changes & exercise for blood pressure control by DC, Other additional outcomes/goals Interventions/plan: Instruct on optimal blood pressure, hypertension & medications, Instruct on effects of sodium, alcohol, stress, exercise &hypertension, Other additional plan/interventions - Tobacco Cessation Referral Smoking Cessation Referral:: No Individual Education/Counseling:: No Education Schedule Given:: Yes Core - 30-Day Assessment Core - 60-Day Assessment Core - 90 Day Assessment Core - Final Assessment Psychosocial - Initial Assess - VIsit Date of Eval: 06/20/22 - initial eval History of previous Mental disease:: No - Outcomes/Goals: See list Psychosocial Outcomes/Goals:: ID's personal stressors & 2 strategies to manage stress by discharge, Other Additional outcome/goals: - Intervention/Plan: See List Interventions/Plan:: Assess stressors,coping strategies & signs of derpression on admission, Instruct/assist pt to develop coping & personal stress Mgt strategies, Refer to Behavioral Health if appropriate, Refer to Physician if appropriate, Instruct patient to recognize signs & symptoms of depression, Instruct patient to recog, Other additional plan/intervention Psychosocial - 30-Day Assess Psychosocial - 60-Day Assess Psychosocial - 90-Day Assess Psychosocial - Final Assessmen Patient Health Questionnaire Initial Assessment 1. Little interest or pleasure in doing things: Several days 2. Feeling down, depressed, or hopeless: Not at all 3. Trouble falling or staying asleep, or sleeping too much: Not at all 4. Feeling tired or having little energy: Several days 5. Poor appetite or overeating: Not at all 6. Feeling bad about yourself -- or that you are a failure or have let yourself or your family down: Not at all 7. Trouble concentrating on things, such as reading the newspaper or watching television: Not at all 8. Moving or speaking so slowly that other people could have noticed. Or the opposite - being so fidgety or restless that you have been moving around a lot more than usual: Several days 9. Thoughts that you would be better off , or of hurting yourself in some way: Not at all How difficult have these problems made it for you to do your work, take care of things at home, or get along with other people?: Not difficult at all Total Score: 3 OLEG-Q SV Test - Statements CAD is a disease of the arteries in the heart: False Examples of risk factors for heart disease: True Angina is chest pain or discomfort: I Don't Know The benefits of resistance training include: I Don't Know Eating more meat and dairy products: I Don't Know Anti-platelet medications such as aspirin are important: I Don't Know The only effective way to manage stress: False An exercise warm-up slowly increases heart rate: I Don't Know Prepared, processed foods usually have high sodium: True Depression is common after a heart attack: False The statin medications lower cholesterol: True To control blood pressure, lower the amount of sodium: True If someone gets chest discomfort during walking: False Transfats are partially hydrogenated vegetable oils: True Sleep apnea that is not treated increases the risk: I Don't Know To control cholesterol, one should become a vegetarian: False Someone knows if he/she is exercising at the right level: True Diabetes cannot be prevented with exercise & health eating: True Stress is a large risk for heart attack: False A diet that can help lower blood pressure is rich in: True - Total Score Total Correct Responses: 11 Self-Efficacy Initial Assessment We would like to know how confident you are in doing certain activities. Please select your confidence level for:: Select your confidence level for the following using the scale 1-10 where 1 is not at all confident and 10 is totally confident. Your score is the average of all 6 responses. Fatigue: How confident are you that you can keep the fatigue caused by your disease from interfering with the things you want to do? Select Number: 9 Physical Discomfort or Pain: How confident are you that you can keep the physical discomfort or pain of your disease from interfering with the things you want to do? Select Number: 10 Emotional Distress: How confident are you that you can keep the emotional distress caused by your disease from interfering with the things you want to do? Select Number: 10 Other Symptoms or Health Problems: How confident are you that you can keep other symptoms or health problems from interfering with the things you want to do? Select Number: 8 Different Tasks and Activities: How confident are you that you can do the different tasks and activities needed to manage your health condition so as to reduce your need to see a doctor? Select Number: 9 Medication: How confident are you that you can do things other than just taking medication to reduce how much your illness affects your everyday life? Select Number: 9 Total Score:: 9 Nutrition Survey - Nutrition Survey Initial Have you lost >10 lbs over the past 2 months without trying?: Yes Are you following a special diet at home for diabetes, low fat, or low salt?: No Are you interested in meeting with a dietitian for help understanding your diet?: No Do you eat less than 3 meals a day?: Yes Do you eat fatty meats (siegel, sausage, ribs, etc), fried foods, desserts, large amounts of salad dressings, margarine, butter, or cheese most days?: Yes Do you have food allergies? [Enter types in comment field]: No Do you eat in restaurants more than 3 times a week?: Yes Do you season food with salt, seasoning salt, or garlic salt?: No Do you used canned, boxed, frozen meals, or soups, seasoning packets?: Yes Total Score:: 5
[2022-06-20 09:02] VITALS: BP 78/50; BMI 29.4
== END | disposition home or self-care (01) ==
LOC: CR 07:54
PROVIDERS: PCP Family Medicine; Visit Provider Internal Medicine Cardiovascular Disease
DX: Z00.00 Encounter for general adult medical examination without abnormal findings (principal)

== ENCOUNTER 2022-07-11 10:30 | Outpatient (RCR) | payer OTHER, SELFPAY ==
[2022-06-20 09:02] VITALS: BMI 29.4
== END 2022-07-12 23:59 ==
LOC: CR 10:30
PROVIDERS: PCP Family Medicine; Visit Provider Internal Medicine Cardiovascular Disease
DX: Z95.1 Presence of aortocoronary bypass graft (principal)
CPT/HCPCS: 93798

== ENCOUNTER 2022-08-11 10:30 | Outpatient (RCR) | payer OTHER, SELFPAY ==
[2022-06-20 09:02] VITALS: BMI 29.4
--- NOTE | 2022-07-21 12:00 | CR.ITP_ITS ---
Diagnosis Exercise - 30-day Assessment - Visit Date of Eval: 07/21/22 Session #:: 10 - Physician Prescribed Exercise Modalities: Treadmill, Airdyne, NuStep Frequency: 3x/week for 12 weeks [36 sessions] Intensity: 60-80% of age predicted maximum heart rate reserve Current METSs:: 3.5 Target Heart Rate:: 96-128 Current RPE:: 11-12 Maximum Excercise HR:: 109 Resting Blood Pressure: 100/64 Maximum Exercise Blood Pressure: 128/80 EKG Type: NSR to ST with T wave inversion - Outcomes & Goals Goals:: Verbalizes understanding of THR, RPE & goal METS by session 6, Documents in home exercise log/reports 30 min aerobic 5 day/wk by DC, Demonstrates accurate pulse taking by DC, Other additional outcome/goals: see below - Intervention & Plan Exercise Program Goals: Instruct on personal THR & RPE, Instruct on MET level & personal MET goal, Show patient to take own pulse /validate performance until accurate, Instruct on home exercise, Other additional plan/int - 30-day Reassessments 30 day Reassessments:: Progressing - THR explained - Physical Activity Home Exercise Physical Activity - Home Exercise: Safe Exercise, Warm-up, Self-monitoring, Cool-Down, Home Exercise > 30 min Daily, Sitting Time <3 hours/daily - Outcomes & Goals Outcomes/Goals: Demonstrates correct Warm-up/exercise Cool-Down (S3) if = 2.5 METs, Verbalizes symptoms of exercise intolerance by Session 3 (S3), Demonstrate safe equipment use (S3) & follows exercise prescrition (6), Other: See below - Intervention & Plan Plan/Intervention: Instruct warm-up & cool-down if exercising at > 2 METs, Instruct on symptoms of exercise intolerance & actions to take, Instruct & monitor on saf, Assess intial functional capacity & safety risk, Other See below - 30-day Reassessments 30 day Reassessments:: Progressing - warm up explained Nutrition - Initial Assessment Nutrition - 30-Day Assessment - Program Goals Nutrition Program Goals: LDL <100 optimal. 100 - 129 Near optimal. 130 - 159 Borderline High. 160 - 189 High. Total Cholesterol <200 desirable. 200 - 239 Borderline High. >/= 240 High. HDL < 40 Low >/=60 High. Triglycerides <150 desirable. <199 optimal. VlDL 5 - 40. HgbA1C <7%. BMI <25 Patient has diagnosis of Hyperlipidemia (ICD E78)?: Yes - Visit Date of Assessment:: 07/21/22 Session #:: 10 - Cholesterol/Lipids (Other Core Measures) Determine presence & major risk factors that modify LDL goal: Cigarette smoking, Hypertension or hypertensive medication, Low HDL cholesterol <40 mg/dL*, Family history of premature CHD in Male < 55 years: female <65 yearsFa, Age men > 45 years; women >/= 55 years Outcomes/Goals: Pt IDs own risk factors & lifestyle modifications by Session 10, Verbalizes symptoms of angina & response by session 3., Pt independently manages, Other Additional Outcomes/Goals: Intervention/Plan: Advocate for lipid panel cholesterol medication if ap plicable, Instruct on personal lipid levels & lipid goals/NCEP guidelines, Instruct on cholesterol, Other additional plan/int Referral to dietitian:: No - declines 30-day Reassessments:: Progressing - risk factors explianed - Diabetes (Other Core Measures) Diabetes Type: Not Applicable - Weight Mgt (Other Care) Height: 6 ft Weight:: 101.151 kg BMI: 30.2 Diagnosis High BMI/Morbid Obesity BMI> 35% ICD-10 Z68: No Outcomes/Goals: Pt sets, maintains & shows weight loss goal & trend during rehab, Other additional outcomes/goals Intervention/Plan: Instruct on ideal BMI & set weight loss goal w/patient, Assist pt to ID & incorporate diet changes for weight loss by S9, Refer to Structured Weight Loss program as appropriate, Encourage goal of using 250- 300dcal per session for weight loss, Other additional plan/interventions 30 day Reassessments:: Progressing - attending nutrition class - Healthy Eating Habits Will attend diet classes:: Yes Outcomes/Goals:: Consume diet rich in vegs,fruits,whole grain/high fiber,fish,lean meat, Limit sat/trans fats,cholesterol & added salts & sugars, Other additional outcome/goals: Intervention/Plan:: Assess current eating habits, Other Additional plan/interventions 30-day Reassessments:: Progressing - attending nutrition class - Education Gave educational materials for:: Signs & symptoms of hypoglycemia, Signs & symptoms of hyperglycemia, Relate diabetes to coronary artery disease, Healthy eating Nutrition - 60-Day Assessment Nutrition - 90-Day Assessment Nutrition - Final Assessment Core - Initial Assessment Core - 30-Day Assessment - Visit Date of Eval: 07/21/22 Session #:: 10 - Medication Compliance Preventative Medication(s):: Aspirin, Clopidogrel/P2Y12 inhibit, Statin/lipid, Beta samreen H/O mental health issues: depression, anxiety, or addiction?: No Doesn?t believe in the benefits of treatment?: No Believes medications are unnecessary or harmful?: No Has a concern about medication side effects?: No Expresses concern over the cost of medications?: No Outcomes/Goals: Verbalizes medications,desired effect & common side effects @ DC, Pt self-reports following medication regimen, Keeps card in wallet w/medications listed by DC, Other additional outcome/goals: Interventions/plans: Instruct on medication effects & side effects, Review medication list w/patient every two weeks, Instruct importance of taking meds as ordered & assist problem solving, Other additional 30-day Reassessments:: Progressing - encouraged to take meds - Tobacco Use Tobacco Use: Non-smoker Do you use smokeless tobacco?: No - Hypertension Hypertension Diagnosis:: Hypertension ICD-10 I10 Resting Blood Pressure:: 100/64 [place] [employer] Hypertension Guidelines: [place] [employer] Hypertension Guidelines. Normal BP Less than 120/80. Elevated BP 120/80. Hypertension Stage 1: BP 130-139/80-89. Hypertesnion Stage 2: BP 140 or higher/90 or higher. Hypertension Crisis: BP higher than 180/120 Peak Exercise Blood Pressure:: 128/80 Outcomes/Goals: Able to verbalize/achieve optimal blood pressure <130/80, Incorporates diet changes & exercise for blood pressure control by DC, Other additional outcomes/goals Interventions/plan: Instruct on optimal blood pressure, hypertension & medications, Instruct on effects of sodium, alcohol, stress, exercise &hypertension, Other additional plan/interventions 30 day Reassessments:: Progressing - taking his meds - Tobacco Cessation Referral Smoking Cessation Referral:: No Individual Education/Counseling:: No Education Schedule Given:: Yes Core - 60-Day Assessment Core - 90 Day Assessment Core - Final Assessment Psychosocial - Initial Assess Psychosocial - 30-Day Assess - VIsit Date of Eval: 07/21/22 Session #:: 10 History of previous Mental disease:: No Psychosocial - 60-Day Assess Psychosocial - 90-Day Assess Psychosocial - Final Assessmen Patient Health Questionnaire 30-Day Re-eval Assessment 1. Little interest or pleasure in doing things: Several days 2. Feeling down, depressed, or hopeless: Not at all 3. Trouble falling or staying asleep, or sleeping too much: Not at all 4. Feeling tired or having little energy: Several days 5. Poor appetite or overeating: Not at all 6. Feeling bad about yourself -- or that you are a failure or have let yourself or your family down: Not at all 7. Trouble concentrating on things, such as reading the newspaper or watching television: Not at all 8. Moving or speaking so slowly that other people could have noticed. Or the opposite - being so fidgety or restless that you have been moving around a lot more than usual: Several days 9. Thoughts that you would be better off , or of hurting yourself in some way: Not at all How difficult have these problems made it for you to do your work, take care of things at home, or get along with other people?: Not difficult at all Total Score: 3 Self-Efficacy 30-Day Re-eval Assessment We would like to know how confident you are in doing certain activities. Please select your confidence level for:: Select your confidence level for the following using the scale 1-10 where 1 is not at all confident and 10 is totally confident. Your score is the average of all 6 responses. Fatigue: How confident are you that you can keep the fatigue caused by your disease from interfering with the things you want to do? Select Number: 9 Physical Discomfort or Pain: How confident are you that you can keep the physical discomfort or pain of your disease from interfering with the things you want to do? Select Number: 10 Emotional Distress: How confident are you that you can keep the emotional distress caused by your disease from interfering with the things you want to do? Select Number: 10 Other Symptoms or Health Problems: How confident are you that you can keep other symptoms or health problems from interfering with the things you want to do? Select Number: 8 Different Tasks and Activities: How confident are you that you can do the different tasks and activities needed to manage your health condition so as to reduce your need to see a doctor? Select Number: 9 Medication: How confident are you that you can do things other than just taking medication to reduce how much your illness affects your everyday life? Select Number: 9 Total Score:: 9 Nutrition Survey
[2022-07-21 12:14] VITALS: BP 100/64; BP 128/80; BMI 30.2
== END 2022-08-12 23:59 ==
LOC: CR 10:30
PROVIDERS: PCP Family Medicine; Referring Provider Internal Medicine Cardiovascular Disease; Visit Provider Internal Medicine Cardiovascular Disease
DX: I25.10 Atherosclerotic heart disease of native coronary artery without angina pectoris (principal); I10 Essential (primary) hypertension
CPT/HCPCS: 93798

== ENCOUNTER → 2022-08-27 | Outpatient (CLI) | payer OTHER, SELFPAY ==
[2022-08-20 11:29] VITALS: BMI 31.9
[2022-08-27 13:07] LABS: AST(SGOT) 13 U/L (15-37); Alanine Aminotransfer ALT/SGPT 20 U/L (16-61); Anion Gap 6 (5-15); BUN 19 mg/dL (7-18); CPK Total, Creatine Kinase 65 U/L (39-308); Calcium,Total 9.3 mg/dL (8.5-10.1); Chloride 104 mmol/L (98-107); Cholesterol 123 mg/dL (200); Creatinine, Serum 1.12 mg/dL (0.70-1.30); EST Glomerular Filtration Rate 71 mL/min (>60); Est Glom Filt Rate - Afr Amer 86 mL/min (>60); Glucose 93 mg/dL (74-106); High Density Lipoprotein 40 mg/dL; Potassium 4.4 mmol/L (3.5-5.1); Sodium Level 139 mmol/L (136-145); Triglycerides 102 mg/dL; Very Low Density Lipoprotein 20 mg/dL (5-40)
== END | disposition home or self-care (01) ==
LOC: LAB 11:23
PROVIDERS: PCP Family Medicine; Visit Provider Internal Medicine Cardiovascular Disease
DX: E78.5 Hyperlipidemia, unspecified (principal); I10 Essential (primary) hypertension
CPT/HCPCS: 36415; 80048; 80061; 82550; 84450; 84460

== ENCOUNTER 2022-09-08 10:30 | Outpatient (RCR) | payer OTHER, SELFPAY ==
[2022-07-21 12:14] VITALS: BMI 30.2
[2022-08-13 00:36] VITALS: BP 100/64; BP 128/80
--- NOTE | 2022-08-20 11:18 | CR.ITP_ITS ---
Diagnosis Exercise - 60-day Assessment - Visit Date of Eval: 08/20/22 Session #:: 22 - Physician Prescribed Exercise Modalities: Treadmill, Airdyne, NuStep Frequency: 3x/week for 12 weeks [36 sessions] Intensity: 60-80% of age predicted maximum heart rate reserve Current METSs:: 5.5 Target Heart Rate:: 96-128 Current RPE:: 12-13 Maximum Excercise HR:: 109 Resting Blood Pressure: 144/82 Maximum Exercise Blood Pressure: 148/80 EKG Type: NSR to ST with T wave inversion - Outcomes & Goals Goals:: Verbalizes understanding of THR, RPE & goal METS by session 6, Documents in home exercise log/reports 30 min aerobic 5 day/wk by DC, Demonstrates accurate pulse taking by DC, Other additional outcome/goals: see below - Intervention & Plan Exercise Program Goals: Instruct on personal THR & RPE, Instruct on MET level & personal MET goal, Show patient to take own pulse /validate performance until accurate, Instruct on home exercise, Other additional plan/int - 30-day Reassessments 30 day Reassessments:: Progressing - THR explained - Physical Activity Home Exercise Physical Activity - Home Exercise: Safe Exercise, Warm-up, Self-monitoring, Cool-Down, Home Exercise > 30 min Daily, Sitting Time <3 hours/daily - Outcomes & Goals Outcomes/Goals: Demonstrates correct Warm-up/exercise Cool-Down (S3) if = 2.5 METs, Verbalizes symptoms of exercise intolerance by Session 3 (S3), Demonstrate safe equipment use (S3) & follows exercise prescrition (6), Other: See below - Intervention & Plan Plan/Intervention: Instruct warm-up & cool-down if exercising at > 2 METs, Instruct on symptoms of exercise intolerance & actions to take, Instruct & monitor on saf, Assess intial functional capacity & safety risk, Other See below - 30-day Reassessments 30 day Reassessments:: Progressing - cool down encouraged Nutrition - Initial Assessment Nutrition - 30-Day Assessment Nutrition - 60-Day Assessment - Visit Date of Assessment:: 08/20/22 Session #:: 22 - Cholesterol/Lipids (Other Core Measures) Determine presence & major risk factors that modify LDL goal: Cigarette smoking, Hypertension or hypertensive medication, Low HDL cholesterol <40 mg/dL*, Family history of premature CHD in Male < 55 years: female <65 yearsFa, Age men > 45 years; women >/= 55 years Outcomes/Goals: Pt IDs own risk factors & lifestyle modifications by Session 10, Verbalizes symptoms of angina & response by session 3., Pt independently manages, Other Additional Outcomes/Goals: Intervention/Plan: Advocate for lipid panel cholesterol medication if applicable, Instruct on personal lipid levels & lipid goals/NCEP guidelines, Instruct on cholesterol, Other additional plan/int 30-day Reassessments:: Progressing - risk factors explained - Diabetes (Other Core Measures) Diabetes Type: Not Applicable - Weight Mgt (Other Care) Height: 6 ft Weight:: 106.821 kg BMI: 31.9 Diagnosis Overweight/Obesity BMI> 30% ICD-10 E66: Yes Diagnosis High BMI/Morbid Obesity BMI> 35% ICD-10 Z68: No Outcomes/Goals: Pt sets, maintains & shows weight loss goal & trend during rehab, Other additional outcomes/goals Intervention/Plan: Instruct on ideal BMI & set weight loss goal w/patient, Assist pt to ID & incorporate diet changes for weight loss by S9, Refer to Structured Weight Loss program as appropriate, Encourage goal of using 250- 300dcal per session for weight loss, Other additional plan/interventions 30 day Reassessments:: Progressing - will attend nutrition class - Healthy Eating Habits Will attend diet classes:: Yes Outcomes/Goals:: Consume diet rich in vegs,fruits,whole grain/high fiber, fish,lean meat, Limit sat/trans fats,cholesterol & added salts & sugars, Other additional outcome/goals: Intervention/Plan:: Assess current eating habits, Other Additional nathen n/interventions 30-day Reassessments:: Progressing - healthy eating encouraged - Education Gave educational materials for:: Signs & symptoms of hypoglycemia, Signs & symptoms of hyperglycemia, Relate diabetes to coronary artery disease, Healthy eating Nutrition - 90-Day Assessment Nutrition - Final Assessment Core - Initial Assessment Core - 30-Day Assessment Core - 60-Day Assessment - Visit Date of Eval: 08/20/22 Session #:: 22 - Medication Compliance Preventative Medication(s):: Aspirin, Clopidogrel/P2Y12 inhibit, Ticagrelor/P2Y12 inhibitor, Beta samreen H/O mental health issues: depression, anxiety, or addiction?: No Doesn?t believe in the benefits of treatment?: No Believes medications are unnecessary or harmful?: No Has a concern about medication side effects?: No Expresses concern over the cost of medications?: No Outcomes/Goals: Verbalizes medications,desired effect & common side effects @ DC, Pt self-reports following medication regimen, Keeps card in wallet w/medications listed by DC, Other additional outcome/goals: Interventions/plans: Instruct on medication effects & side effects, Review medication list w/patient every two weeks, Instruct importance of taking meds as ordered & assist problem solving, Other additional 30-day Reassessments:: Progressing - HCTZ added - Tobacco Use Tobacco Use: Non-smoker Do you use smokeless tobacco?: No - Hypertension Hypertension Diagnosis:: Hypertension ICD-10 I10 Resting Blood Pressure:: 144/82 [employer] [place] [employer] Hypertension Guidelines: [place] [employer] Hypertension Guidelines. Normal BP Less than 120/80. Elevated BP 120/80. Hypertension Stage 1: BP 130-139/80-89. Hypertesnion Stage 2: BP 140 or higher/90 or higher. Hypertension Crisis: BP higher than 180/120 Peak Exercise Blood Pressure:: 148/80 Outcomes/Goals: Able to verbalize/achieve optimal blood pressure <130/80, Incorporates diet changes & exercise for blood pressure control by DC, Other additional outcomes/goals Interventions/plan: Instruct on optimal blood pressure, hypertension & medications, Instruct on effects of sodium, alcohol, stress, exercise &hypertension, Other additional plan/interventions 30 day Reassessments:: Progressing - HCTZ added - Tobacco Cessation Referral Smoking Cessation Referral:: No Individual Education/Counseling:: No Education Schedule Given:: Yes Core - 90 Day Assessment Core - Final Assessment Psychosocial - Initial Assess Psychosocial - 30-Day Assess Psychosocial - 60-Day Assess - VIsit Date of Eval: 08/20/22 Session #:: 22 History of previous Mental disease:: No Psychosocial - 90-Day Assess Psychosocial - Final Assessmen Patient Health Questionnaire 60-Day Re-eval Assessment 1. Little interest or pleasure in doing things: Several days 2. Feeling down, depressed, or hopeless: Not at all 3. Trouble falling or staying asleep, or sleeping too much: Not at all 4. Feeling tired or having little energy: Several days 5. Poor appetite or overeating: Not at all 6. Feeling bad about yourself -- or that you are a failure or have let yourself or your family down: Not at all 7. Trouble concentrating on things, such as reading the newspaper or watching television: Not at all 8. Moving or speaking so slowly that other people could have noticed. Or the opposite - being so fidgety or restless that you have been moving around a lot more than usual: Several days 9. Thoughts that you would be better off , or of hurting yourself in some way: Not at all How difficult have these problems made it for you to do your work, take care of things at home, or get along with other people?: Not difficult at all Total Score: 3 Self-Efficacy 60-Day Re-eval Assessment We would like to know how confident you are in doing certain activities. Please select your confidence level for:: Select your confidence level for the following using the scale 1-10 where 1 is not at all confident and 10 is totally confident. Your score is the average of all 6 responses. Fatigue: How confident are you that you can keep the fatigue caused by your disease from interfering with the things you want to do? Select Number: 10 Physical Discomfort or Pain: How confident are you that you can keep the physical discomfort or pain of your disease from interfering with the things you want to do? Select Number: 9 Emotional Distress: How confident are you that you can keep the emotional distress caused by your disease from interfering with the things you want to do? Select Number: 10 Other Symptoms or Health Problems: How confident are you that you can keep other symptoms or health problems from interfering with the things you want to do? Select Number: 10 Different Tasks and Activities: How confident are you that you can do the different tasks and activities needed to manage your health condition so as to reduce your need to see a doctor? Select Number: 8 Medication: How confident are you that you can do things other than just taking medication to reduce how much your illness affects your everyday life? Select Number: 9 Total Score:: 9 Nutrition Survey
[2022-08-20 11:29] VITALS: BP 144/82; BP 148/80; BMI 31.9
--- NOTE | 2022-09-17 08:10 | PCM.CR.ITP ---
Diagnosis Exercise - 90-day Assessment - Visit Date of Eval: 09/17/22 Session #:: 32 - Physician Prescribed Exercise Modalities: Treadmill, Airdyne, NuStep Frequency: 3x/week for 12 weeks [36 sessions] Intensity: 60-80% of age predicted maximum heart rate reserve Duration: 30 - 45 minutes Current METSs:: 5.5 Target Heart Rate:: 96-128 Current RPE:: 12 Maximum Excercise HR:: 100 Resting Blood Pressure: 92/60 Maximum Exercise Blood Pressure: 140/80 EKG Type: NSR to sinus tach w/rare PAC Current Physical Activity or Exercising minutes: 42:20 - Outcomes & Goals Goals:: Verbalizes understanding of THR, RPE & goal METS by session 6, Documents in home exercise log/reports 30 min aerobic 5 day/wk by DC, Demonstrates accurate pulse taking by DC - Intervention & Plan Exercise Program Goals: Instruct on personal THR & RPE, Instruct on MET level & personal MET goal, Show patient to take own pulse /validate performance until accurate, Instruct on home exercise - 30-day Reassessments 30 day Reassessments:: Met - Physical Activity Home Exercise Physical Activity - Home Exercise: Safe Exercise, Warm-up, Self-monitoring, Cool-Down, Home Exercise > 30 min Daily, Sitting Time <3 hours/daily - Outcomes & Goals Outcomes/Goals: Demonstrates correct Warm-up/exercise Cool-Down (S3) if = 2.5 METs, Verbalizes symptoms of exercise intolerance by Session 3 (S3), Demonstrate safe equipment use (S3) & follows exercise prescrition (6) - Intervention & Plan Plan/Intervention: Instruct warm-up & cool-down if exercising at > 2 METs, Instruct on symptoms of exercise intolerance & actions to take, Instruct & monitor on saf, Assess intial functional capacity & safety risk - 30-day Reassessments 30 day Reassessments:: Met Nutrition - Initial Assessment Nutrition - 30-Day Assessment Nutrition - 60-Day Assessment Nutrition - 90-Day Assessment - Program Goals Nutrition Program Goals: LDL <100 optimal. 100 - 129 Near optimal. 130 - 159 Borderline High. 160 - 189 High. Total Cholesterol <200 desirable. 200 - 239 Borderline High. >/= 240 High. HDL < 40 Low >/=60 High. Triglycerides <150 desirable. <199 optimal. VlDL 5 - 40. HgbA1C <7%. BMI <25 Patient has diagnosis of Hyperlipidemia (ICD E78)?: Yes - Visit Date of Assessment:: 09/17/22 Session #:: 32 - Cholesterol/Lipids (Other Core Measures) Determine presence & major risk factors that modify LDL goal: Hypertension or hypertensive medication, Age men > 45 years; women >/= 55 years Outcomes/Goals: Pt IDs own risk factors & lifestyle modifications by Session 10, Verbalizes symptoms of angina & response by session 3., Pt independently manages Intervention/Plan: Instruct on personal lipid levels & lipid goals/NCEP guidelines, Instruct on cholesterol Referral to dietitian:: Yes - Medical Nutrition Therapy 30-day Reassessments:: Progressing - Diabetes (Other Core Measures) Diabetes Type: Not Applicable - Weight Mgt (Other Care) Not Applicable: Yes Height: 6 ft 1 in - Weight:: 231 lb 8 oz BMI: 30.5 Diagnosis Overweight/Obesity BMI> 30% ICD-10 E66: Yes Diagnosis High BMI/Morbid Obesity BMI> 35% ICD-10 Z68: No Outcomes/Goals: Pt sets, maintains & shows weight loss goal & trend during rehab Intervention/Plan: Instruct on ideal BMI & set weight loss goal w/patient, Assist pt to ID & incorporate diet changes for weight loss by S9, Refer to Structured Weight Loss program as appropriate 30 day Reassessments:: Progressing - lost 3 pounds this month - Healthy Eating Habits Will attend diet classes:: Yes Outcomes/Goals:: Consume diet rich in vegs,fruits,whole grain/high fiber,fish,lean meat, Limit sat/trans fats,cholesterol & added salts & sugars Intervention/Plan:: Assess current eating habits 30-day Reassessments:: Progressing - Education Gave educational materials for:: Healthy eating Nutrition - Final Assessment Core - Initial Assessment Core - 30-Day Assessment Core - 60-Day Assessment Core - 90 Day Assessment - Visit Date of Eval: 09/17/22 Session #:: 32 - Medication Compliance Preventative Medication(s):: Aspirin, Clopidogrel/P2Y12 inhibit, Statin/lipid, Beta samreen H/O mental health issues: depression, anxiety, or addiction?: No Doesn?t believe in the benefits of treatment?: No Believes medications are unnecessary or harmful?: No Has a concern about medication side effects?: No Expresses concern over the cost of medications?: No Outcomes/Goals: Verbalizes medications,desired effect & common side effects @ DC, Pt self-reports following medication regimen, Keeps card in wallet w/medications listed by DC Interventions/plans: Instruct on medication effects & side effects, Review medication list w/patient every two weeks, Instruct importance of taking meds as ordered & assist problem solving 30-day Reassessments:: Progressing - Tobacco Use Tobacco Use: Non-smoker - Hypertension Hypertension Diagnosis:: Hypertension ICD-10 I10 Resting Blood Pressure:: 92/60 [place] [employer] Hypertension Guidelines: [place] [employer] Hypertension Guidelines. Normal BP Less than 120/80. Elevated BP 120/80. Hypertension Stage 1: BP 130-139/80-89. Hypertesnion Stage 2: BP 140 or higher/90 or higher. Hypertension Crisis: BP higher than 180/120 Peak Exercise Blood Pressure:: 140/80 Outcomes/Goals: Able to verbalize/achieve optimal blood pressure <130/80, Incorporates diet changes & exercise for blood pressure control by DC Interventions/plan: Instruct on optimal blood pressure, hypertension & medications, Instruct on effects of sodium, alcohol, stress, exercise &hypertension 30 day Reassessments:: Met - Tobacco Cessation Referral Smoking Cessation Referral:: No Individual Education/Counseling:: No Education Schedule Given:: Yes Core - Final Assessment Psychosocial - Initial Assess Psychosocial - 30-Day Assess Psychosocial - 60-Day Assess Psychosocial - 90-Day Assess - VIsit Date of Eval: 09/17/22 Session #:: 32 Not Applicable: Yes History of previous Mental disease:: No - Psychosocial Test Tool Used:: PHQ-9 Questionnaire phq-9 Severity: Severity. 1-4 Minimal Depression. 5-9 Mild Depression. 10-14 Moderate Depression. 15-19 Moderately Sever Depression. 20-27 Severe Depression. Rule: - Referral to Behavioral Health PS - Interventions: Yes Attend Stress Management Classes, No Referral to Behavioral Health if PHQ-9 score >9:, No Referral to [facility], No Referral to Physician if PHQ-9 if score is 5-9: - Outcomes/Goals: See list Psychosocial Outcomes/Goals:: ID's personal stressors & 2 strategies to manage stress by discharge - Intervention/Plan: See List Interventions/Plan:: Assess stressors,coping strategies & signs of derpression on admission - 30-day Reassessments: 30 day Reassessments:: Met Psychosocial - Final Assessmen Patient Health Questionnaire 90-Day Re-eval Assessment 1. Little interest or pleasure in doing things: Not at all 2. Feeling down, depressed, or hopeless: Not at all 3. Trouble falling or staying asleep, or sleeping too much: Not at all 4. Feeling tired or having little energy: Not at all 5. Poor appetite or overeating: Not at all 6. Feeling bad about yourself -- or that you are a failure or have let yourself or your family down: Not at all 7. Trouble concentrating on things, such as reading the newspaper or watching television: Not at all 8. Moving or speaking so slowly that other people could have noticed. Or the opposite - being so fidgety or restless that you have been moving around a lot more than usual: Not at all 9. Thoughts that you would be better off , or of hurting yourself in some way: Not at all Total Score: 0 Self-Efficacy 90-Day Re-eval Assessment We would like to know how confident you are in doing certain activities. Please select your confidence level for:: Select your confidence level for the following using the scale 1-10 where 1 is not at all confident and 10 is totally confident. Your score is the average of all 6 responses. Fatigue: How confident are you that you can keep the fatigue caused by your disease from interfering with the things you want to do? Select Number: 10 Physical Discomfort or Pain: How confident are you that you can keep the physical discomfort or pain of your disease from interfering with the things you want to do? Select Number: 10 Emotional Distress: How confident are you that you can keep the emotional distress caused by your disease from interfering with the things you want to do? Select Number: 10 Other Symptoms or Health Problems: How confident are you that you can keep other symptoms or health problems from interfering with the things you want to do? Select Number: 10 Different Tasks and Activities: How confident are you that you can do the different tasks and activities needed to manage your health condition so as to reduce your need to see a doctor? Select Number: 10 Medication: How confident are you that you can do things other than just taking medication to reduce how much your illness affects your everyday life? Select Number: 10 Total Score:: 10 Nutrition Survey
[2022-09-17 08:16] VITALS: BP 140/80; BP 92/60; BMI 30.5
== END 2022-09-09 23:59 ==
LOC: CR 10:30
PROVIDERS: PCP Family Medicine; Referring Provider Internal Medicine Cardiovascular Disease; Visit Provider Internal Medicine Cardiovascular Disease
DX: Z95.1 Presence of aortocoronary bypass graft (principal)
CPT/HCPCS: 93798

== ENCOUNTER 2022-09-29 10:30 | Outpatient (RCR) | payer OTHER, SELFPAY ==
[2022-08-20 11:29] VITALS: BMI 31.9
[2022-09-10 00:24] VITALS: BP 144/82; BP 148/80
[2022-09-25 10:06] VITALS: BMI 31.9
== END 2022-10-10 23:59 ==
LOC: CR 10:30
PROVIDERS: PCP Family Medicine; Referring Provider Internal Medicine Cardiovascular Disease; Visit Provider Internal Medicine Cardiovascular Disease
DX: Z95.1 Presence of aortocoronary bypass graft (principal)
CPT/HCPCS: 93798

== ENCOUNTER → 2022-12-05 | Outpatient (CLI) | payer OTHER, SELFPAY ==
[2022-09-25 10:06] VITALS: BMI 31.9
[2022-12-05 14:57] LABS: Basophil# 0.05 X10^3/uL; Basophil% 0.7 % (0-1); Eosinophils% 4.3 % (0-5); Hemoglobin 13.6 g/dL (13.0-16.5); Mean Corp Hgb Conc 31.6 g/dL (32-36); Mean Corpuscular Hgb 27.2 pg (27.0-32.0); Mean Platelet Vol. 11.5 fl (6.2-12.0); Monocyte# 0.82 X10^3/uL; Monocyte% 11.8 % (0-10); NRBC Flagged by Analyzer 0 % (0-5); Neutrophil # 3.95 X10^3/uL (2.7-7.7); Neutrophil % 57.1 % (47-70); Platelet Count 240 K/mm3 (150-450); RBC Distribution Width CV 14.3 % (11.6-14.6); RBC Distribution Width SD 44.1 fl (35.1-43.9); White Blood Count 6.9 K/mm3 (4.4-11.0)
[2022-12-05 15:18] LABS: Hemoglobin A1c 6.2 % (3.8-5.6)
[2022-12-05 15:26] LABS: ALB/GLOB Ratio 0.9 RATIO (0.9-2.4); AST(SGOT) 19 U/L (15-37); Alanine Aminotransfer ALT/SGPT 33 U/L (16-61); Albumin, Serum 3.1 g/dL (3.2-5.0); Alkaline Phosphatase 122 U/L (45-117); Anion Gap 8 (5-15); BUN 17 mg/dL (7-18); BUN/Creat Ratio 15.9 RATIO (10-20); Calcium,Total 8.6 mg/dL (8.5-10.1); Chloride 109 mmol/L (98-107); Cholesterol 121 mg/dL (200); Creatinine, Serum 1.07 mg/dL (0.70-1.30); EST Glomerular Filtration Rate 75 mL/min (>60); Est Glom Filt Rate - Afr Amer 90 mL/min (>60); Globulin 3.6 g/dL (2.2-4.2); Glucose 128 mg/dL (74-106); High Density Lipoprotein 34 mg/dL; Potassium 3.9 mmol/L (3.5-5.1); Protein, Total 6.7 g/dL (6.4-8.2); Sodium Level 142 mmol/L (136-145); Thyroid Stim Hormone (TSH) 2.39 uIU/mL (0.358-3.74); Triglycerides 147 mg/dL; Very Low Density Lipoprotein 29 mg/dL (5-40)
[2022-12-05 15:29] LABS: Microalbumin,Random Urine < 5.0 mg/L (NO RANGE EST.)
== END | disposition home or self-care (01) ==
LOC: MTLAB 12:30
PROVIDERS: PCP Family Medicine; Referring Provider Family Medicine; Visit Provider Family Medicine
DX: I10 Essential (primary) hypertension (principal); E78.5 Hyperlipidemia, unspecified; Z13.1 Encounter for screening for diabetes mellitus
CPT/HCPCS: 36415; 80053; 80061; 82043; 83036; 84443; 85025

== ENCOUNTER → 2023-10-28 | Outpatient (CLI) | payer OTHER, SELFPAY ==
[2022-09-25 10:06] VITALS: BMI 31.9
[2023-10-28 12:25] LABS: Absolute Lymphocyte Count 1.48 X10^3/uL (0.83-4.51); Absolute Neutrophil Count 4.7 X10^3/uL (2.0-7.7); Basophil# 0.03 X10^3/uL; Basophil% 0.4 % (0-1); Eosinophil# 0.29 X10^3/uL; Hematocrit 43.1 % (40-54); Hemoglobin 13.9 g/dL (13.0-16.5); Lymphocyte # 1.48 X10^3/ul (0.83-4.51); Lymphocyte % 20.6 % (19-41); Mean Corp Hgb Conc 32.3 g/dL (32-36); Mean Corpuscular Hgb 28.7 pg (27.0-32.0); Mean Corpuscular Volume 88.9 fL (80-94); Mean Platelet Vol. 11.8 fl (6.2-12.0); Monocyte# 0.65 X10^3/uL; NRBC Flagged by Analyzer 0 % (0-5); Neutrophil # 4.72 X10^3/uL (2.7-7.7); Neutrophil % 65.6 % (47-70); Platelet Count 259 K/mm3 (150-450); RBC Distribution Width CV 13.4 % (11.6-14.6); RBC Distribution Width SD 43.7 fl (35.1-43.9); Red Blood Count 4.85 M/mm3 (4.6-6.2); White Blood Count 7.2 K/mm3 (4.4-11.0)
[2023-10-28 13:07] LABS: ALB/GLOB Ratio 0.9 RATIO (0.9-2.4); AST(SGOT) 18 U/L (15-37); Alanine Aminotransfer ALT/SGPT 40 U/L (16-61); Albumin, Serum 3.4 g/dL (3.2-5.0); Alkaline Phosphatase 129 U/L (45-117); Anion Gap 6 (5-15); BUN 19 mg/dL (7-18); BUN/Creat Ratio 16.7 RATIO (10-20); Calcium,Total 9.2 mg/dL (8.5-10.1); Chloride 108 mmol/L (98-107); Cholesterol 122 mg/dL (200); Creatinine, Serum 1.14 mg/dL (0.70-1.30); EST Glomerular Filtration Rate 69 mL/min (>60); Est Glom Filt Rate - Afr Amer 84 mL/min (>60); Globulin 3.6 g/dL (2.2-4.2); Glucose 120 mg/dL (74-106); High Density Lipoprotein 31 mg/dL; Potassium 3.9 mmol/L (3.5-5.1); Sodium Level 140 mmol/L (136-145); Triglycerides 171 mg/dL; Very Low Density Lipoprotein 34 mg/dL (5-40)
[2023-10-28 13:10] LABS: Hemoglobin A1c 6.4 % (3.8-5.6)
== END | disposition home or self-care (01) ==
LOC: MFPLAB 10:21
PROVIDERS: PCP Family Medicine; Visit Provider Family Medicine
DX: I10 Essential (primary) hypertension (principal); I25.10 Atherosclerotic heart disease of native coronary artery without angina pectoris; R73.03 Prediabetes
CPT/HCPCS: 36415; 80053; 80061; 83036; 84443; 85025

== ENCOUNTER → 2024-05-13 | Outpatient (CLI) | payer OTHER, SELFPAY ==
[2022-09-25 10:06] VITALS: BMI 31.9
[2024-05-13 09:53] LABS: ALB/GLOB Ratio 0.8 RATIO (0.9-2.4); AST(SGOT) 29 U/L (15-37); Alanine Aminotransfer ALT/SGPT 31 U/L (16-61); Albumin, Serum 3.2 g/dL (3.2-5.0); Alkaline Phosphatase 127 U/L (45-117); Anion Gap 5 (5-15); BUN 14 mg/dL (7-18); BUN/Creat Ratio 12.4 RATIO (10-20); Chloride 108 mmol/L (98-107); Cholesterol 130 mg/dL (200); Creatinine, Serum 1.13 mg/dL (0.70-1.30); EST Glomerular Filtration Rate 70 mL/min (>60); Est Glom Filt Rate - Afr Amer 84 mL/min (>60); Globulin 3.8 g/dL (2.2-4.2); Glucose 159 mg/dL (74-106); High Density Lipoprotein 32 mg/dL; Potassium 4.3 mmol/L (3.5-5.1); Sodium Level 140 mmol/L (136-145); Triglycerides 158 mg/dL; Very Low Density Lipoprotein 32 mg/dL (5-40)
== END | disposition home or self-care (01) ==
LOC: LAB 08:47
PROVIDERS: PCP Family Medicine; Referring Provider Internal Medicine Cardiovascular Disease; Visit Provider Internal Medicine Cardiovascular Disease
DX: I25.10 Atherosclerotic heart disease of native coronary artery without angina pectoris (principal); I10 Essential (primary) hypertension; E78.5 Hyperlipidemia, unspecified
CPT/HCPCS: 36415; 80053; 80061

== ENCOUNTER 2025-03-14 14:06 | Outpatient (RCR) | payer OTHER, SELFPAY ==
[2022-09-25 10:06] VITALS: BMI 31.9
== END 2025-04-11 23:59 ==
LOC: NS 14:06
PROVIDERS: PCP Family Medicine; Referring Provider Family Medicine; Visit Provider Family Medicine
DX: Z71.3 Dietary counseling and surveillance (principal); E11.9 Type 2 diabetes mellitus without complications
CPT/HCPCS: 97802

== ENCOUNTER → 2025-05-24 | Outpatient (CLI) | payer OTHER, SELFPAY ==
[2022-09-25 10:06] VITALS: BMI 31.9
[2025-05-24 15:08] LABS: AST(SGOT) 18 U/L (<=37); Alanine Aminotransfer ALT/SGPT 23 U/L (<=46); Albumin, Serum 4.4 g/dL (3.4-4.8); Alkaline Phosphatase 120 U/L (40-129); Anion Gap 12 (5-15); BUN 14 mg/dL (4-19); BUN/Creat Ratio 15.2 RATIO (10-20); Calcium,Total 9.9 mg/dL (7.6-11.0); Carbon Dioxide 24.2 mmol/L (21.0-32.0); Chloride 105 mmol/L (98-108); Cholesterol 123 mg/dL (<=200); Globulin 2.6 g/dL (2.2-4.2); Glucose 97 mg/dL (70-99); Low Density Lipoprotein Calc. 61 mg/dL; Potassium 4.1 mmol/L (3.3-5.1); Triglycerides 188 mg/dL; Very Low Density Lipoprotein 38 mg/dL (5-40); cholesterol:hdl ratio screen 3.98
== END | disposition home or self-care (01) ==
LOC: LAB 14:24
PROVIDERS: PCP Family Medicine; Referring Provider Internal Medicine Cardiovascular Disease; Visit Provider Internal Medicine Cardiovascular Disease
DX: I25.10 Atherosclerotic heart disease of native coronary artery without angina pectoris (principal); I10 Essential (primary) hypertension; E78.5 Hyperlipidemia, unspecified; Z95.1 Presence of aortocoronary bypass graft
CPT/HCPCS: 36415; 80053; 80061

== ENCOUNTER → 2025-06-22 | Outpatient (CLI) | payer OTHER, SELFPAY ==
[2022-09-25 10:06] VITALS: BMI 31.9
--- NOTE | 2025-06-22 12:33 | ECHOCS_ITS ---
Reason For Study Reason For Study: DILATED CMP, CAD/ASHD Procedure This was a 2D Doppler, Color Flow transthoracic echocardiogram. The study was technically difficult. Due to body habitus. Contrast injection was performed. Exam performed in department. Left Ventricle Normal size and thickness. The left ventricular ejection fraction is 55 %. No evidence for diastolic dysfunction. Right Ventricle Normal right ventricle. Atria There is moderate biatrial dilatation. Mitral Valve Trivial mitral valve insufficiency. Tricuspid Valve Trivial tricuspid valve insufficiency. Normal pulmonary artery pressure. Aortic Valve Aortic sclerosis, no stenosis. Pulmonic Valve The pulmonic valve is not well visualized. Great Vessels The aortic root is not well visualized. Pericardium/Pleural No pericardial effusion. Medication 22 gauge I.V. with prn adaptor inserted into right arm. Diluted definity 2.5ml given slow IV push to enhance endocardial definition. MMode/2D Measurements & Calculations LVIDd: 5.1 cm Ao root diam: 3.5 cm LAV(MOD- bp): 60.5 ml RVDd: 3.4 cm LAV(MOD- bp) Indexed: 25.8 ml/m2 LAV(MOD- sp2): 67.1 ml LAV(MOD- sp4): 55.6 ml LVAd ap4: 14.6 cm2 LVAd ap2: 26.0 cm2 EDV(MOD- bp): 47.6 ml LVLd ap4: 6.6 cm LVLd ap2: 7.3 cm ESV(MOD- bp): 15.4 ml EDV(MOD-sp4): 26.6 ml EDV(MOD-sp2): 75.6 ml EF(MOD- bp): 67.6 % EDV(sp4-el): 27.4 ml EDV(sp2-el): 78.4 ml LVAs ap4: 7.8 cm2 LVAs ap2: 12.3 cm2 LVLs ap4: 5.4 cm LVLs ap2: 5.7 cm ESV(MOD-sp4): 9.6 ml ESV(MOD-sp2): 23.5 ml ESV(sp4-el): 9.6 ml ESV(sp2-el): 22.9 ml EF(MOD-sp4): 63.8 % EF(MOD-sp2): 68.9 % EF(sp4-el): 65.1 % SV(MOD-sp4): 17.0 ml SV(MOD-sp2): 52.1 ml SV(sp4- el): 17.9 ml SI(MOD-sp4): 7.2 ml/m2 SI(MOD-sp2): 22.2 ml/m2 LA dimension(2D): 4.8 cm LA A4 area: 18.6 cm2 RA A4 area: 17.3 cm2 TAPSE: 2.3 cm Time Measurements MV dec time: 0.20 sec Doppler Measurements & Calculations MV E max contreras: 79.0 cm/sec Lat Peak E' Contreras: 14.0 cm/sec Med Peak E' Contreras: 12.3 cm/sec MV A max contreras: 69.3 cm/sec E/E' lat: 5.6 E/E' med: 6.4 MV E/A: 1.1 Ao V2 max: 125.7 cm/sec LV V1 max: 107.4 cm/sec PA V2 max: 125.4 cm/sec Ao max P.3 mmHg LV V1 max P.6 mmHg Ao V2 mean: 92.3 cm/sec LV V1 mean P.2 mmHg Ao mean P.7 mmHg LV V1 mean: 66.3 cm/sec Ao V2 VTI: 26.4 cm LV V1 VTI: 22.5 cm AV (velocity ratio): 0.85 TR max contreras: 237.2 cm/sec TR max P.5 mmHg ECHO/Echo Complete W/ Contrast Interpretation Summary The study was technically difficult. The left ventricular ejection fraction is 55 %. No evidence for diastolic dysfunction. There is moderate biatrial dilatation. Aortic sclerosis, no stenosis. Ordering Physician: Delfina Bajwa Referring Physician: Anny Pinto Performed By: Tawnya Knott, GENO, RVT
== END | disposition home or self-care (01) ==
PROVIDERS: PCP Family Medicine; Referring Provider Internal Medicine Cardiovascular Disease; Visit Provider Internal Medicine Cardiovascular Disease
DX: I25.10 Atherosclerotic heart disease of native coronary artery without angina pectoris (principal); I42.0 Dilated cardiomyopathy
CPT/HCPCS: 93306; Q9957; A4216; C8929